=== PATIENT | female | born 1940 | race Caucasian/White ===

== ENCOUNTER 2022-12-13 08:05 | Inpatient (IN) | payer MEDICARE, OTHER, SELFPAY ==
[2022-12-13] VITALS (38 sets, daily range): BP systolic 67–138; BP diastolic 36–83; PULSE 7–93; RESP 13–21; TEMP 35.4–36.5; O2SAT 76–100; BMI 30.8
--- NOTE | 2022-12-13 08:17 | XR_ITS ---
The [address] [address] Patient Name: ALETA RODRIGUEZ MRN: [id number] date: 1940 Sex: F Assigned Patient Location: ER Current Patient Location: ER Accession/Order Number: [id number] Exam Date: 12/13/2022 08:41 Report Date: 12/13/2022 09:00 At the request of: YURI ANDRES Procedure: XR chest 1V EXAMINATION: XR chest 1V HISTORY: syncope COMPARISON: XR chest 05/12/2021 FINDINGS: LUNGS: Trace amount of stranding within medial right lung base. VASCULATURE: No increased pulmonary vasculature. PLEURA: No pneumothorax, effusion, or pleural thickening. CARDIAC: No cardiomegaly or cardiac silhouette abnormality. MEDIASTINUM: Prior sternotomy. No abnormal widening. BONES: Degenerative changes and possibly posttraumatic changes involving the left humeral head. OTHER: Negative. IMPRESSION: 1. Trace amount of right basilar atelectasis or possibly infiltrates. Electronically authenticated by: JONATHAN NICHOLAS Date: 12/13/2022 09:00
--- NOTE | 2022-12-13 08:17 | ECG_ITS ---
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
--- NOTE | 2022-12-13 08:17 | CT_ITS ---
[address] [address] Patient Name: ALETA RODRIGUEZ MRN: [id number] date: 1940 Sex: F Assigned Patient Location: ER Current Patient Location: ER Accession/Order Number: [id number] Exam Date: 12/13/2022 08:35 Report Date: 12/13/2022 08:56 At the request of: YURI ANDRES Procedure: CT stroke head/brain wo con CT stroke head/brain wo con, 12/13/2022 8:35 AM EDT INDICATION: Weakness COMPARISON: Noncontrast CT of the head 03/25/2014 TECHNIQUE: Axial CT images of the brain from skull base to vertex, including portions of the face and sinuses, were obtained without contrast. Multiplanar reformatted images were generated and reviewed as needed. FINDINGS: Global cortical and cerebellar atrophy. No intracranial mass, hydrocephalus, midline shift or acute hemorrhage. No extra-axial collection. Periventricular and deep white matter microvascular ischemic change has increased in the interval. Breen-white matter differentiation is preserved. The paranasal sinuses and mastoid air cells are clear. Orbits are within normal limits. No acute skull fracture. IMPRESSION: No acute intracranial abnormality. Electronically authenticated by: PATRICE DALLAS Date: 12/13/2022 08:56
--- NOTE | 2022-12-13 08:17 | ED.GENADUL1 ---
HPI - General Adult General Chief complaint: Neuro Symptoms/Deficit Stated complaint: CVA Time Seen by Provider: 12/13/22 08:17 History of Present Illness HPI narrative: Patient brought into the emergency department with a complaint of weakness. They called in for a code purple at registration. Lauryn brings the patient and in a wheelchair stating the patient was weak since yesterday. She denies eating and drinking. She vomited one time yesterday. Denies any hematemesis. Has not had any diarrhea. They deny any fever. He denies any trauma. Morning she was awake and not diaphoretic as if she is going to pass out. She has no previous history of seizures. 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 Patient is unable to provide history history is obtained from grandson and patient's daughter who provides us with the DNR CC paperwork. She states primary care doctor is Dr. Gonzalez. They only half the medication as atorvastatin she does not know the medication list she is calling to see if someone can provide this for us. Related Data Home Medications Medication Instructions Recorded Confirmed amlodipine 5 mg tablet 5 mg PO DAILY 12/13/22 12/13/22 aspirin 81 mg tablet,delayed 81 mg PO DAILY 12/13/22 12/13/22 release (Adult Low Dose Aspirin) donepezil 5 mg tablet 5 mg PO DAILY 12/13/22 12/13/22 duloxetine 20 mg capsule,delayed 20 mg PO DAILY 12/13/22 12/13/22 release lisinopril 40 mg tablet 40 mg PO DAILY 12/13/22 12/13/22 rosuvastatin 40 mg tablet 40 mg PO DAILY 12/13/22 12/13/22 trazodone 50 mg tablet 50 mg PO .HS 12/13/22 12/13/22 Allergies Allergy/AdvReac Type Severity Reaction Status Date / Time No Known Drug Allergies Allergy Verified 12/13/22 13:51 Review of Systems ROS Status of ROS unobtainable due to medical condition [facility] Medical History (Updated 12/15/22 @ 08:41 by Gabriella Larsen MD) Surgical History Family History Father Family history of hypertension Other Family history of myocardial infarction Social History Within the past year, how often did you have six or more drinks on one occasion: never Smoking status: Never smoker Second hand tobacco smoke exposure: No Non-prescribed substance use: denies use 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 Known occupational exposures/hazards: No Highest level of school completed/degree received: high school graduate Do you want help with school or training: No Are you now , , , , never or living with a partner: In a typical week, how many times do you talk on the telephone with family, friends, or neighbors: 3 or more times per week How often do you get together with friends or relatives: 3 or more times per week How often do you attend yazidism or zoroastrianism services: 1-3 times per year Do you belong to any clubs or organizations such as yazidism groups unions, fraternal or athletic groups, or school groups: no Total score: 1 Score interpretation: A score of less than or equal to 1 indicates the most socially isolated. Little interest or pleasure in doing things: several days Feeling down, depressed, or hopeless: not at all Feel stressed/tense/nervous/anxious/difficulty sleeping: not at all Due to disability, difficulty making decisions: No Gender Identity: female Exam Narrative Exam Narrative: Nurses notes and vital signs reviewed and patient is hypoxic. pt 85 percent on room air. 100 percent on a nonrebreather. General: Elderly, ill-appearing, groggy, syncopal, only responds to painful stimuli. no apparent distress. Skin: Warm, diaphoretic, mild pallor noted. No Rash Head: Normocephalic, atraumatic. Neck: Supple, non-tender. Eye: Pupils are equal, round 1 mm, no deviation. No scleral icterus. Ears, Nose, Mouth, and Throat: TM clear, no posterior oropharynx erythema or nasal mucosal hypertrophy, uvula is mid-line Oral mucosa is dry Cardiovascular: Sinus 92 without murmur, gallop or rub. Respiratory: No accessory muscle use or respiratory distress. Lungs are clear to auscultation, no wheezing, rales or rhonchi Chest Wall: no tenderness Back: No midline thoracic or lumbar vertebral tenderness. No CVA tenderness Musculoskeletal: normal ROM, no calf or popliteal tenderness, no lower extremity edema/swelling GI: Abdomen is soft, non-distended. Normal bowel sounds. No tenderness to palpation. No rebound, guarding, or rigidity noted. Rectal: hard melenous stool, sent for hemoccult. Neurological: A&O x3. No cranial nerve dysfunction observed. Moves all extremities. Psychiatric: Cooperative Constitutional Vital Signs - 24 hr 12/13/22 08:15 12/13/22 08:29 12/13/22 08:15 Temperature 96.9 F L Pulse Rate 86 Pulse Rate [Monitor] 93 H Respiratory Rate 20 18 Blood Pressure 138/49 H Blood Pressure [Right Arm] 138/49 H Pulse Oximetry 100 96 100 Oxygen Delivery Method Nonrebreather Room Air Oxygen Delivery Flow Rate 12/13/22 08:15 12/13/22 08:21 12/13/22 08:48 Temperature Pulse Rate 93 H 83 Pulse Rate [Monitor] Respiratory Rate 21 14 Blood Pressure 112/70 Blood Pressure [Right Arm] Pulse Oximetry 100 93 L 76 L Oxygen Delivery Method Oxygen Delivery Flow Rate 12/13/22 08:50 12/13/22 08:50 12/13/22 08:51 Temperature Pulse Rate 79 79 79 Pulse Rate [Monitor] Respiratory Rate 16 16 14 Blood Pressure 77/48 L 92/42 L Blood Pressure [Right Arm] Pulse Oximetry 93 L 93 L 98 Oxygen Delivery Method Oxygen Delivery Flow Rate 12/13/22 09:00 12/13/22 09:07 12/13/22 09:10 Temperature Pulse Rate 91 H 80 79 Pulse Rate [Monitor] Respiratory Rate 18 14 17 Blood Pressure 85/45 L 81/45 L 93/46 L Blood Pressure [Right Arm] Pulse Oximetry 97 96 98 Oxygen Delivery Method Oxygen Delivery Flow Rate 12/13/22 09:20 12/13/22 09:30 12/13/22 10:21 Temperature 96.3 F L Pulse Rate 77 75 7 L Pulse Rate [Monitor] Respiratory Rate 13 19 16 Blood Pressure 85/52 L 88/50 L 80/37 L Blood Pressure [Right Arm] Pulse Oximetry 99 100 Oxygen Delivery Method Oxygen Delivery Flow Rate 12/13/22 10:32 12/13/22 10:35 12/13/22 09:41 Temperature 96.6 F L 96.8 F L Pulse Rate 76 76 75 Pulse Rate [Monitor] Respiratory Rate 14 13 19 Blood Pressure 88/48 L 85/52 L 95/46 L Blood Pressure [Right Arm] Pulse Oximetry 100 96 97 Oxygen Delivery Method Oxygen Delivery Flow Rate 12/13/22 09:51 12/13/22 09:52 12/13/22 10:00 Temperature Pulse Rate 77 74 76 Pulse Rate [Monitor] Respiratory Rate 21 14 13 Blood Pressure 68/45 L 77/45 L 83/52 L Blood Pressure [Right Arm] Pulse Oximetry 96 97 Oxygen Delivery Method Oxygen Delivery Flow Rate 12/13/22 10:13 12/13/22 10:20 12/13/22 10:20 Temperature Pulse Rate 77 75 76 Pulse Rate [Monitor] Respiratory Rate 15 13 14 Blood Pressure 80/37 L Blood Pressure [Right Arm] Pulse Oximetry 99 Oxygen Delivery Method Oxygen Delivery Flow Rate 12/13/22 10:30 12/13/22 10:45 12/13/22 10:49 Temperature 96.2 F L Pulse Rate 74 76 Pulse Rate [Monitor] Respiratory Rate 13 15 Blood Pressure 88/48 L 106/66 Blood Pressure [Right Arm] Pulse Oximetry 97 95 98 Oxygen Delivery Method Nasal Cannula Oxygen Delivery Flow Rate 2 12/13/22 11:16 12/13/22 10:30 12/13/22 10:37 Temperature 95.8 F L Pulse Rate 78 76 75 Pulse Rate [Monitor] Respiratory Rate 17 13 16 Blood Pressure 100/65 88/48 L 85/52 L Blood Pressure [Right Arm] Pulse Oximetry 95 84 L 85 L Oxygen Delivery Method Oxygen Delivery Flow Rate 12/13/22 10:41 12/13/22 10:47 12/13/22 10:50 Temperature Pulse Rate 77 75 74 Pulse Rate [Monitor] Respiratory Rate 17 15 19 Blood Pressure 103/36 L 106/66 98/57 L Blood Pressure [Right Arm] Pulse Oximetry 89 L 96 90 L Oxygen Delivery Method Oxygen Delivery Flow Rate 12/13/22 11:00 12/13/22 11:11 12/13/22 11:12 Temperature Pulse Rate 76 79 79 Pulse Rate [Monitor] Respiratory Rate 17 20 19 Blood Pressure 109/70 67/53 L 100/65 Blood Pressure [Right Arm] Pulse Oximetry 80 L 97 80 L Oxygen Delivery Method Oxygen Delivery Flow Rate 12/13/22 11:20 Temperature Pulse Rate 78 Pulse Rate [Monitor] Respiratory Rate 17 Blood Pressure 110/55 L Blood Pressure [Right Arm] Pulse Oximetry 99 Oxygen Delivery Method Oxygen Delivery Flow Rate Course Vital Signs Vital signs: Vital Signs Temperature 96.9 F L 12/13/22 08:15 Pulse Rate 86 12/13/22 08:15 Respiratory Rate 20 12/13/22 08:15 Blood Pressure 138/49 H 12/13/22 08:15 Pulse Oximetry 100 12/13/22 08:15 Oxygen Delivery Method Nonrebreather 12/13/22 08:15 Temperature 98.2 F 12/15/22 06:00 Pulse Rate 75 12/15/22 06:00 Respiratory Rate 18 12/15/22 06:00 Blood Pressure 146/72 H 12/15/22 06:00 Pulse Oximetry 90 L 12/15/22 06:00 Oxygen Delivery Method Room Air 12/15/22 06:00 Oxygen Delivery Flow Rate 2 12/14/22 20:04 Medical Decision Making MDM Narrative Medical decision making narrative: Patient's glucose is 291. Pupils are pinpoint and equal bilaterally. The patient's oxygen saturation is 85 percent on room air. She is 100 percent on a nonrebreather. ABG was ordered. Patient's blood pressure was unable to obtain. I raised pts legs, placed her on Trendelenburg and blood pressure read was 110/50. 1 L of NS started. 2 units of packed red blood cells were ordered. Patient's was more responsive. Patient's white count is 20, xray showed possible infiltrate the patient was covered with Rocephin. Lactic acid is elevated, the patient was given 1 L of normal saline +2 units of PRBCs lactate will be rechecked. Critical Care Time: 60 minutes, critical care time is separate from any procedures that are performed. The following was considered in the determination of critical care but not limited to the level medical decision-making, intensive cardiac and/or respiratory monitor, frequent vital sign monitoring, evaluation of laboratory studies, evaluation of a radiographic studies, oxygen monitoring and constant monitoring. The patient was discussed with Dr. do for admission. Lab Data Lab results reviewed: Yes I reviewed the patient's lab results Labs: Lab Results 12/13/22 12/13/22 12/13/22 Range/Units 00:30 04:32 08:15 WBC 11.1 H 20.6 H (4.0-11.0) 10^3/uL RBC 2.77 L 2.16 L (4.20-5.40) 10^6/uL Hgb 7.6 L 5.1 L* (12.0-16.0) g/dL Hct 23.0 L* 17.1 L* (36.0-48.0) % MCV 83.0 79.2 L (81.0-99.0) fL MCH 27.4 23.6 L (26.7-34.0) pg MCHC 33.0 29.8 L (29.9-35.2) g/dL RDW 18.2 H 16.2 H (11.0-15.0) % Plt Count 177 308 (150-450) 10^3/uL MPV 10.6 10.6 (9.5-13.5) fL Neut % (Auto) 72.8 (43.0-75.0) % Lymph % (Auto) 17.6 L (20.5-60.0) % [place] % (Auto) 7.6 (1.7-12.0) % Eos % (Auto) 1.0 (0.9-7.0) % Baso % (Auto) 0.4 (0.2-2.0) % Neut # (Auto) 8.1 H (1.4-6.5) 10^3/uL Lymph # (Auto) 2.0 (1.2-3.8) 10^3/uL [place] # (Auto) 0.8 (0.3-0.8) 10^3/uL Eos # (Auto) 0.1 (0.0-0.7) 10^3/uL Baso # (Auto) 0.0 (0.0-0.1) 10^3/uL Abs Immat Gran (auto) 0.07 H (0.00-0.03) 10^3/uL Seg Neuts % (Manual) 60.0 Lymphocytes % (Manual) 30.0 (20.5-60.0) % Atypical Lymphs % (Man) 0.0 % Monocytes % (Manual) 7.0 (1.7-12.0) % Eosinophils % (Manual) 3.0 (0.9-7.0) % Basophils % (Manual) 0.0 L (0.2-2.0) % Metamyelocytes % 0.0 Myelocytes % 0.0 Promyelocytes % 0.0 Blast Cells % (Manual) 0.0 Imm/Tot Granulo (auto) 0.6 H (0.0-0.5) % Neutrophils # (Manual) 12.36 H (1.4-6.5) 10^3/uL Lymphocytes # (Manual) 6.18 H (1.20-3.80) 10^3/uL Monocytes # (Manual) 1.44 H (0.30-0.80) 10^3/uL Eosinophils # (Manual) 0.61 (0.00-0.70) 10^3/uL Basophils # (Manual) 0.00 (0.00-0.10) 10^3/uL Metamyelocytes # 0 Myelocytes # 0 Promyelocytes # 0 Blast Cells # 0 Anisocytosis 1+ PT 10.2 (9.0-11.6) sec INR 0.96 APTT <20.0 L (22.3-36.2) sec Puncture Site ABG pH (7.350-7.450) ABG pCO2 (35.0-45.0) mmHg ABG pO2 (80.0-100.0) mmHg ABG HCO3 (22.0-26.0) mmol/L ABG O2 Saturation % ABG Base Excess (-2.0-2.0) mmol/L Benjy Test (POSITIVE) O2 Liters/Min FiO2 % Sodium 136 131 L (136-145) mmol/L Potassium 4.5 5.1 (3.5-5.1) mmol/L Chloride 105 98 (98-107) mmol/L Carbon Dioxide 20.9 L 14.3 L (21.0-32.0) mmol/L Anion Gap 14.6 23.8 BUN 55.0 H 70.0 H (7.0-18.0) mg/dL Creatinine 1.51 H 1.86 H (0.55-1.02) mg/dL Est GFR ( Amer) 40 L 31 L (>=60) Est GFR (Non-Af Amer) 33 L 26 L (>=60) BUN/Creatinine Ratio 36.4 37.6 Glucose 98 253 H (74-106) mg/dL Lactate 9.9 H* (0.4-2.0) mmol/L Calcium 8.9 10.4 H (8.5-10.1) mg/dL Magnesium 2.1 (1.8-2.4) mg/dL Total Bilirubin 0.3 0.2 (0.2-1.0) mg/dL AST 23 21 (15-37) U/L ALT 14 20 (14-59) U/L Alkaline Phosphatase 28 L 35 L (46-116) U/L Troponin I High Sens 29.2 (4.0-51.3) pg/mL NT-Pro-B Natriuret Pep 577.0 (<=1800.0) pg/mL Total Protein 5.7 L 6.5 (6.4-8.2) g/dL Albumin 2.4 L 2.7 L (3.4-5.0) g/dL Globulin 3.3 3.8 g/dL Albumin/Globulin Ratio 0.7 0.7 Lipase 86.0 (73.0-393.0) U/L Urine Color (YELLOW) Urine Clarity (CLEAR) Urine pH (5.0-9.0) Ur Specific Gage (1.005-1.025) Urine Protein (NEG/TRACE) mg/dL Urine Glucose (UA) (NEGATIVE) mg/dL Urine Ketones (NEGATIVE) mg/dL Urine Occult Blood (NEGATIVE) Urine Nitrite (NEGATIVE) Urine Bilirubin (NEGATIVE) Urine Urobilinogen (0.2-1.0) EU/dL Ur Leukocyte Esterase (NEGATIVE) Tamir H. influenza (PCR) Not detected (NOT DETECTE) Stool Occult Blood Salicylates <2.8 (<=19.9) mg/dL Urine Opiates Screen (NEGATIVE) Ur Buprenorphine Scrn (NEGATIVE) Ur Oxycodone Screen (NEGATIVE) Urine Methadone Screen (NEGATIVE) Ur Propoxyphene Screen (NEGATIVE) Acetaminophen <2.0 L (10.0-30.0) ug/mL Ur Barbiturates Screen (NEGATIVE) U Tricyclic Antidepress (NEGATIVE) Ur Phencyclidine Scrn (NEGATIVE) Ur Amphetamines Screen (NEGATIVE) U Methamphetamines Scrn (NEGATIVE) U Benzodiazepines Scrn (NEGATIVE) Urine Cocaine Screen (NEGATIVE) U Cannabinoids Screen (NEGATIVE) Ethanol Quant <3 mg/dL A.calcoaceticus-baumannii cmplx PCR Not detected (NOT DETECTE) Bacteroides fragilis Not detected (NOT DETECTE) Hetal albicans (PCR) Not detected (NOT DETECTE) Hetal auris (PCR) Not detected (NOT DETECTE) C. glabrata (PCR) Not detected (NOT DETECTE) C. krusei (PCR) Not detected (NOT DETECTE) C. parapsilosis (PCR) Not detected (NOT DETECTE) C. tropicalis (PCR) Not detected (NOT DETECTE) SARS-CoV-2 (PCR) (NEGATIVE) C. neoform/gattii (PCR) Not detected (NOT DETECTE) Enterobacterales (PCR) Not detected (NOT DETECTE) E. cloacae complex PCR Not detected (NOT DETECTE) Enterococc faecalis PCR Not detected (NOT DETECTE) Enterococc faecium PCR Not detected (NOT DETECTE) E. coli (PCR) Not detected (NOT DETECTE) Klebsiella aerogenes (PCR) Not detected (NOT DETECTE) Klebsiella oxytoca PCR Not detected (NOT DETECTE) K. pneumoniae group (PCR) Not detected (NOT DETECTE) List. monocytogenes PCR Not detected (NOT DETECTE) N. meningitidis (PCR) Not detected (NOT DETECTE) Proteus spp. (copies/mL) Not detected (NOT DETECTE) Salmonella spp. (PCR) Not detected (NOT DETECTE) SARS-CoV-2 RNA (SANGITA) (NOT DETECTE) Serratia marcescens PCR Not detected (NOT DETECTE) Staphylococcus sp PCR Detected A* (NOT DETECTE) Staph aureus (PCR) Not detected (NOT DETECTE) mecA/C & MREJ Resist Gene Not detected (NOT DETECTE) mecA/C-Methicil Resis Gene Not detected (NOT DETECTE) mcr-1 Colistin Res Gene PCR Not detected (NOT DETECTE) Staph epidermidis (PCR) Detected A* (NOT DETECTE) Staph lugdunensis (TEM-PCR) Not detected (NOT DETECTE) S. maltophilia (PCR) Not detected (NOT DETECTE) Streptococcus sp PCR Not detected (NOT DETECTE) Strep agalactiae (PCR) Not detected (NOT DETECTE) Strep pneumoniae (PCR) Not detected (NOT DETECTE) S. pyogenes (PCR) Not detected (NOT DETECTE) P. aeruginosa (PCR) Not detected (NOT DETECTE) Jessica/B-Vanco Res Genes Not detected (NOT DETECTE) blaIMP Car res Gene PCR Not detected (NOT DETECTE) KPC (blaKPC) Detect PCR Not detected (NOT DETECTE) NDM (blaNDM) Detect PCR Not detected (NOT DETECTE) OXA-48 Carbapenem Resis Gene (PCR) Not detected (NOT DETECTE) blaVIM Car Res Gene PCR Not detected (NOT DETECTE) CTX-M ESBL (PCR) Not detected (NOT DETECTE) Blood Type Antibody Screen Crossmatch 12/13/22 12/13/22 12/13/22 Range/Units 08:16 08:21 08:27 WBC (4.0-11.0) 10^3/uL RBC (4.20-5.40) 10^6/uL Hgb (12.0-16.0) g/dL Hct (36.0-48.0) % MCV (81.0-99.0) fL MCH (26.7-34.0) pg MCHC (29.9-35.2) g/dL RDW (11.0-15.0) % Plt Count (150-450) 10^3/uL MPV (9.5-13.5) fL Neut % (Auto) (43.0-75.0) % Lymph % (Auto) (20.5-60.0) % [place] % (Auto) (1.7-12.0) % Eos % (Auto) (0.9-7.0) % Baso % (Auto) (0.2-2.0) % Neut # (Auto) (1.4-6.5) 10^3/uL Lymph # (Auto) (1.2-3.8) 10^3/uL [place] # (Auto) (0.3-0.8) 10^3/uL Eos # (Auto) (0.0-0.7) 10^3/uL Baso # (Auto) (0.0-0.1) 10^3/uL Abs Immat Gran (auto) (0.00-0.03) 10^3/uL Seg Neuts % (Manual) Lymphocytes % (Manual) (20.5-60.0) % Atypical Lymphs % (Man) % Monocytes % (Manual) (1.7-12.0) % Eosinophils % (Manual) (0.9-7.0) % Basophils % (Manual) (0.2-2.0) % Metamyelocytes % Myelocytes % Promyelocytes % Blast Cells % (Manual) Imm/Tot Granulo (auto) (0.0-0.5) % Neutrophils # (Manual) (1.4-6.5) 10^3/uL Lymphocytes # (Manual) (1.20-3.80) 10^3/uL Monocytes # (Manual) (0.30-0.80) 10^3/uL Eosinophils # (Manual) (0.00-0.70) 10^3/uL Basophils # (Manual) (0.00-0.10) 10^3/uL Metamyelocytes # Myelocytes # Promyelocytes # Blast Cells # Anisocytosis PT (9.0-11.6) sec INR APTT (22.3-36.2) sec Puncture Site Left radial ABG pH 7.252 L* (7.350-7.450) ABG pCO2 30.1 L (35.0-45.0) mmHg ABG pO2 303.0 H (80.0-100.0) mmHg ABG HCO3 13.3 L (22.0-26.0) mmol/L ABG O2 Saturation >100.0 % ABG Base Excess -13.9 L (-2.0-2.0) mmol/L Benjy Test Positive (POSITIVE) O2 Liters/Min N/a FiO2 100 % Sodium (136-145) mmol/L Potassium (3.5-5.1) mmol/L Chloride (98-107) mmol/L Carbon Dioxide (21.0-32.0) mmol/L Anion Gap BUN (7.0-18.0) mg/dL Creatinine (0.55-1.02) mg/dL Est GFR ( Amer) (>=60) Est GFR (Non-Af Amer) (>=60) BUN/Creatinine Ratio Glucose (74-106) mg/dL Lactate (0.4-2.0) mmol/L Calcium (8.5-10.1) mg/dL Magnesium (1.8-2.4) mg/dL Total Bilirubin (0.2-1.0) mg/dL AST (15-37) U/L ALT (14-59) U/L Alkaline Phosphatase (46-116) U/L Troponin I High Sens (4.0-51.3) pg/mL NT-Pro-B Natriuret Pep (<=1800.0) pg/mL Total Protein (6.4-8.2) g/dL Albumin (3.4-5.0) g/dL Globulin g/dL Albumin/Globulin Ratio Lipase (73.0-393.0) U/L Urine Color Lt. yellow (YELLOW) Urine Clarity Clear (CLEAR) Urine pH 6.0 (5.0-9.0) Ur Specific [place] 1.020 (1.005-1.025) Urine Protein Trace (NEG/TRACE) mg/dL Urine Glucose (UA) Negative (NEGATIVE) mg/dL Urine Ketones Negative (NEGATIVE) mg/dL Urine Occult Blood Negative (NEGATIVE) Urine Nitrite Negative (NEGATIVE) Urine Bilirubin Negative (NEGATIVE) Urine Urobilinogen 0.2 (0.2-1.0) EU/dL Ur Leukocyte Esterase Negative (NEGATIVE) Tamir H. influenza (PCR) (NOT DETECTE) Stool Occult Blood Salicylates (<=19.9) mg/dL Urine Opiates Screen Negative (NEGATIVE) Ur Buprenorphine Scrn Negative (NEGATIVE) Ur Oxycodone Screen Negative (NEGATIVE) Urine Methadone Screen Negative (NEGATIVE) Ur Propoxyphene Screen Negative (NEGATIVE) Acetaminophen (10.0-30.0) ug/mL Ur Barbiturates Screen Negative (NEGATIVE) U Tricyclic Antidepress Negative (NEGATIVE) Ur Phencyclidine Scrn Negative (NEGATIVE) Ur Amphetamines Screen Negative (NEGATIVE) U Methamphetamines Scrn Negative (NEGATIVE) U Benzodiazepines Scrn Negative (NEGATIVE) Urine Cocaine Screen Negative (NEGATIVE) U Cannabinoids Screen Negative (NEGATIVE) Ethanol Quant mg/dL A.calcoaceticus-baumannii cmplx PCR (NOT DETECTE) Bacteroides fragilis (NOT DETECTE) Hetal albicans (PCR) (NOT DETECTE) Hetal auris (PCR) (NOT DETECTE) C. glabrata (PCR) (NOT DETECTE) C. krusei (PCR) (NOT DETECTE) C. parapsilosis (PCR) (NOT DETECTE) C. tropicalis (PCR) (NOT DETECTE) SARS-CoV-2 (PCR) (NEGATIVE) C. neoform/gattii (PCR) (NOT DETECTE) Enterobacterales (PCR) (NOT DETECTE) E. cloacae complex PCR (NOT DETECTE) Enterococc faecalis PCR (NOT DETECTE) Enterococc faecium PCR (NOT DETECTE) E. coli (PCR) (NOT DETECTE) Klebsiella aerogenes (PCR) (NOT DETECTE) Klebsiella oxytoca PCR (NOT DETECTE) K. pneumoniae group (PCR) (NOT DETECTE) List. monocytogenes PCR (NOT DETECTE) N. meningitidis (PCR) (NOT DETECTE) Proteus spp. (copies/mL) (NOT DETECTE) Salmonella spp. (PCR) (NOT DETECTE) SARS-CoV-2 RNA (SANGITA) (NOT DETECTE) Serratia marcescens PCR (NOT DETECTE) Staphylococcus sp PCR (NOT DETECTE) Staph aureus (PCR) (NOT DETECTE) mecA/C & MREJ Resist Gene (NOT DETECTE) mecA/C-Methicil Resis Gene (NOT DETECTE) mcr-1 Colistin Res Gene PCR (NOT DETECTE) Staph epidermidis (PCR) (NOT DETECTE) Staph lugdunensis (TEM-PCR) (NOT DETECTE) S. maltophilia (PCR) (NOT DETECTE) Streptococcus sp PCR (NOT DETECTE) Strep agalactiae (PCR) (NOT DETECTE) Strep pneumoniae (PCR) (NOT DETECTE) S. pyogenes (PCR) (NOT DETECTE) P. aeruginosa (PCR) (NOT DETECTE) Jessica/B-Vanco Res Genes (NOT DETECTE) blaIMP Car res Gene PCR (NOT DETECTE) KPC (blaKPC) Detect PCR (NOT DETECTE) NDM (blaNDM) Detect PCR (NOT DETECTE) OXA-48 Carbapenem Resis Gene (PCR) (NOT DETECTE) blaVIM Car Res Gene PCR (NOT DETECTE) CTX-M ESBL (PCR) (NOT DETECTE) Blood Type A Positive Antibody Screen Negative Crossmatch See Detail 12/13/22 12/13/22 Range/Units 09:39 10:30 WBC (4.0-11.0) 10^3/uL RBC (4.20-5.40) 10^6/uL Hgb (12.0-16.0) g/dL Hct (36.0-48.0) % MCV (81.0-99.0) fL MCH (26.7-34.0) pg MCHC (29.9-35.2) g/dL RDW (11.0-15.0) % Plt Count (150-450) 10^3/uL MPV (9.5-13.5) fL Neut % (Auto) (43.0-75.0) % Lymph % (Auto) (20.5-60.0) % [place] % (Auto) (1.7-12.0) % Eos % (Auto) (0.9-7.0) % Baso % (Auto) (0.2-2.0) % Neut # (Auto) (1.4-6.5) 10^3/uL Lymph # (Auto) (1.2-3.8) 10^3/uL [place] # (Auto) (0.3-0.8) 10^3/uL Eos # (Auto) (0.0-0.7) 10^3/uL Baso # (Auto) (0.0-0.1) 10^3/uL Abs Immat Gran (auto) (0.00-0.03) 10^3/uL Seg Neuts % (Manual) Lymphocytes % (Manual) (20.5-60.0) % Atypical Lymphs % (Man) % Monocytes % (Manual) (1.7-12.0) % Eosinophils % (Manual) (0.9-7.0) % Basophils % (Manual) (0.2-2.0) % Metamyelocytes % Myelocytes % Promyelocytes % Blast Cells % (Manual) Imm/Tot Granulo (auto) (0.0-0.5) % Neutrophils # (Manual) (1.4-6.5) 10^3/uL Lymphocytes # (Manual) (1.20-3.80) 10^3/uL Monocytes # (Manual) (0.30-0.80) 10^3/uL Eosinophils # (Manual) (0.00-0.70) 10^3/uL Basophils # (Manual) (0.00-0.10) 10^3/uL Metamyelocytes # Myelocytes # Promyelocytes # Blast Cells # Anisocytosis PT (9.0-11.6) sec INR APTT (22.3-36.2) sec Puncture Site ABG pH (7.350-7.450) ABG pCO2 (35.0-45.0) mmHg ABG pO2 (80.0-100.0) mmHg ABG HCO3 (22.0-26.0) mmol/L ABG O2 Saturation % ABG Base Excess (-2.0-2.0) mmol/L Benjy Test (POSITIVE) O2 Liters/Min FiO2 % Sodium (136-145) mmol/L Potassium (3.5-5.1) mmol/L Chloride (98-107) mmol/L Carbon Dioxide (21.0-32.0) mmol/L Anion Gap BUN (7.0-18.0) mg/dL Creatinine (0.55-1.02) mg/dL Est GFR ( Amer) (>=60) Est GFR (Non-Af Amer) (>=60) BUN/Creatinine Ratio Glucose (74-106) mg/dL Lactate (0.4-2.0) mmol/L Calcium (8.5-10.1) mg/dL Magnesium (1.8-2.4) mg/dL Total Bilirubin (0.2-1.0) mg/dL AST (15-37) U/L ALT (14-59) U/L Alkaline Phosphatase (46-116) U/L Troponin I High Sens (4.0-51.3) pg/mL NT-Pro-B Natriuret Pep (<=1800.0) pg/mL Total Protein (6.4-8.2) g/dL Albumin (3.4-5.0) g/dL Globulin g/dL Albumin/Globulin Ratio Lipase (73.0-393.0) U/L Urine Color (YELLOW) Urine Clarity (CLEAR) Urine pH (5.0-9.0) Ur Specific Gage (1.005-1.025) Urine Protein (NEG/TRACE) mg/dL Urine Glucose (UA) (NEGATIVE) mg/dL Urine Ketones (NEGATIVE) mg/dL Urine Occult Blood (NEGATIVE) Urine Nitrite (NEGATIVE) Urine Bilirubin (NEGATIVE) Urine Urobilinogen (0.2-1.0) EU/dL Ur Leukocyte Esterase (NEGATIVE) Tamir H. influenza (PCR) (NOT DETECTE) Stool Occult Blood Positive A Salicylates (<=19.9) mg/dL Urine Opiates Screen (NEGATIVE) Ur Buprenorphine Scrn (NEGATIVE) Ur Oxycodone Screen (NEGATIVE) Urine Methadone Screen (NEGATIVE) Ur Propoxyphene Screen (NEGATIVE) Acetaminophen (10.0-30.0) ug/mL Ur Barbiturates Screen (NEGATIVE) U Tricyclic Antidepress (NEGATIVE) Ur Phencyclidine Scrn (NEGATIVE) Ur Amphetamines Screen (NEGATIVE) U Methamphetamines Scrn (NEGATIVE) U Benzodiazepines Scrn (NEGATIVE) Urine Cocaine Screen (NEGATIVE) U Cannabinoids Screen (NEGATIVE) Ethanol Quant mg/dL A.calcoaceticus-baumannii cmplx PCR (NOT DETECTE) Bacteroides fragilis (NOT DETECTE) Hetal albicans (PCR) (NOT DETECTE) Hetal auris (PCR) (NOT DETECTE) C. glabrata (PCR) (NOT DETECTE) C. krusei (PCR) (NOT DETECTE) C. parapsilosis (PCR) (NOT DETECTE) C. tropicalis (PCR) (NOT DETECTE) SARS-CoV-2 (PCR) Negative (NEGATIVE) C. neoform/gattii (PCR) (NOT DETECTE) Enterobacterales (PCR) (NOT DETECTE) E. cloacae complex PCR (NOT DETECTE) Enterococc faecalis PCR (NOT DETECTE) Enterococc faecium PCR (NOT DETECTE) E. coli (PCR) (NOT DETECTE) Klebsiella aerogenes (PCR) (NOT DETECTE) Klebsiella oxytoca PCR (NOT DETECTE) K. pneumoniae group (PCR) (NOT DETECTE) List. monocytogenes PCR (NOT DETECTE) N. meningitidis (PCR) (NOT DETECTE) Proteus spp. (copies/mL) (NOT DETECTE) Salmonella spp. (PCR) (NOT DETECTE) SARS-CoV-2 RNA (SANGITA) Not detected (NOT DETECTE) Serratia marcescens PCR (NOT DETECTE) Staphylococcus sp PCR (NOT DETECTE) Staph aureus (PCR) (NOT DETECTE) mecA/C & MREJ Resist Gene (NOT DETECTE) mecA/C-Methicil Resis Gene (NOT DETECTE) mcr-1 Colistin Res Gene PCR (NOT DETECTE) Staph epidermidis (PCR) (NOT DETECTE) Staph lugdunensis (TEM-PCR) (NOT DETECTE) S. maltophilia (PCR) (NOT DETECTE) Streptococcus sp PCR (NOT DETECTE) Strep agalactiae (PCR) (NOT DETECTE) Strep pneumoniae (PCR) (NOT DETECTE) S. pyogenes (PCR) (NOT DETECTE) P. aeruginosa (PCR) (NOT DETECTE) Jessica/B-Vanco Res Genes (NOT DETECTE) blaIMP Car res Gene PCR (NOT DETECTE) KPC (blaKPC) Detect PCR (NOT DETECTE) NDM (blaNDM) Detect PCR (NOT DETECTE) OXA-48 Carbapenem Resis Gene (PCR) (NOT DETECTE) blaVIM Car Res Gene PCR (NOT DETECTE) CTX-M ESBL (PCR) (NOT DETECTE) Blood Type Antibody Screen Crossmatch ECG Data Attestation: I personally reviewed and interpreted this ECG as follows: Discharge Plan Discharge Chief Complaint: Neuro Symptoms/Deficit Clinical Impression: Acute lactic acidosis, Anemia, Acute GI bleeding, Pneumonia, Hypovolemic shock Patient Disposition: Admitted As Inpatient Time of Disposition Decision: 11:26 Condition: Fair Discharge Date/Time: 12/13/22 12:06
[2022-12-13 08:23] LABS: ABG PCO2 30.1 mmHg (35.0-45.0)
[2022-12-13 08:27] LABS: Allen Test POSITIVE (POSITIVE); Base Excess ABG -13.9 mmol/L (-2.0-2.0); Fractionated Inspired Oxygen 100 %; HCO3 ABG 13.3 mmol/L (22.0-26.0); O2 Mode NRB; Puncture Site LEFT RADIAL
--- NOTE | 2022-12-13 08:29 | PC.NURSE ---
pt to radiology at this time
[2022-12-13 08:31] LABS: Mean Corpuscular HGB Conc 29.8 g/dL (29.9-35.2); Mean Corpuscular Hemoglobin 23.6 pg (26.7-34.0); Mean Corpuscular Volume 79.2 fL (81.0-99.0); Mean Platelet Volume 10.6 fL (9.5-13.5); Platelet Count 308 10^3/uL (150-450); Red Blood Count 2.16 10^6/uL (4.20-5.40); Red Cell Distribution Width 16.2 % (11.0-15.0); White Blood Count 20.6 10^3/uL (4.0-11.0)
[2022-12-13] MEDS: 0.9 % SODIUM CHLORIDE 1,000 ML 999 ML (08:31)
[2022-12-13 08:34] LABS: Oxygen Saturation ABG >100.0 %
[2022-12-13 08:34] LABS: Hemoglobin 5.1 g/dL (12.0-16.0)
[2022-12-13 08:35] LABS: Hematocrit 17.1 % (36.0-48.0)
[2022-12-13 08:35] LABS: pH ABG 7.252 (7.350-7.450)
[2022-12-13 08:43] LABS: Blast Absolute Manual 0; Eosinophils Absolute Manual 0.61 10^3/uL (0.00-0.70); Lymphocytes Absolute Manual 6.18 10^3/uL (1.20-3.80); Metamyelocytes Absolute Manual 0; Myelocytes Absolute Manual 0; Promyelocytes Absolute Manual 0; Segmented Neut Absolute Manual 12.36 10^3/uL (1.4-6.5)
[2022-12-13 08:44] LABS: Anisocytosis 1+; Monocytes Absolute Manual 1.44 10^3/uL (0.30-0.80)
[2022-12-13] MEDS: 0.9 % SODIUM CHLORIDE 1,000 ML 999 ML IV (08:44)
[2022-12-13 08:56] LABS: Alanine Aminotransferase 20 U/L (14-59); Albumin Globulin Ratio 0.7; Albumin Level 2.7 g/dL (3.4-5.0); Alkaline Phosphatase 35 U/L (46-116); Anion Gap 23.8; Aspartate Amino Transferase 21 U/L (15-37); BUN Creatinine Ratio 37.6; Bilirubin Total 0.2 mg/dL (0.2-1.0); Calcium 10.4 mg/dL (8.5-10.1); Carbon Dioxide 14.3 mmol/L (21.0-32.0); Chloride 98 mmol/L (98-107); Estimated GFR (African America 31 (>=60); Estimated GFR (Non-African Ame 26 (>=60); Ethanol <3 mg/dL; Globulin 3.8 g/dL; Glucose 253 mg/dL (74-106); Magnesium 2.1 mg/dL (1.8-2.4); Potassium 5.1 mmol/L (3.5-5.1); Sodium 131 mmol/L (136-145); Total Protein 6.5 g/dL (6.4-8.2); Troponin I High Sensitivity 29.2 pg/mL (4.0-51.3)
[2022-12-13 08:58] LABS: Lactate/Lactic Acid 9.9 mmol/L (0.4-2.0)
[2022-12-13 09:10] LABS: Salicylate <2.8 mg/dL (<=19.9)
[2022-12-13 09:10] LABS: Bilirubin Urine NEGATIVE (NEGATIVE); Blood Urine NEGATIVE (NEGATIVE); Clarity Urine CLEAR (CLEAR); Color Urine LT. YELLOW (YELLOW); Glucose Urine UA NEGATIVE (NEGATIVE); Ketones Urine NEGATIVE (NEGATIVE); Leukocyte Esterase Urine NEGATIVE (NEGATIVE); Nitrite Urine NEGATIVE (NEGATIVE); Protein Urine TRACE mg/dL (NEG/TRACE); Urobilinogen Urine 0.2 EU/dL (0.2-1.0)
[2022-12-13 09:11] LABS: Urine Microscopic Indicated NO
[2022-12-13 09:11] LABS: Acetaminophen <2.0 ug/mL (10.0-30.0)
[2022-12-13] MEDS: ONDANSETRON PF 4 MG/2 ML VIAL (09:11)
[2022-12-13 09:15] LABS: INR 0.96; Prothrombin Time 10.2 sec (9.0-11.6)
[2022-12-13 09:19] LABS: Amphetamine Screen Urine NEGATIVE (NEGATIVE); Barbiturates Screen Urine NEGATIVE (NEGATIVE); Benzodiazepines Screen Urine NEGATIVE (NEGATIVE); Buprenorphine Screen Urine NEGATIVE (NEGATIVE); Cannabinoid Screen Urine NEGATIVE (NEGATIVE); Cocaine Screen Urine NEGATIVE (NEGATIVE); Methadone Screen Urine NEGATIVE (NEGATIVE); Methamphetamines Screen Urine NEGATIVE (NEGATIVE); Opiate Screen Urine NEGATIVE (NEGATIVE); Oxycodone Screen Urine NEGATIVE (NEGATIVE); Phencyclidine Screen Urine NEGATIVE (NEGATIVE); Tricyclic Antidepressant Urine NEGATIVE (NEGATIVE)
[2022-12-13 09:30] LABS: Partial Thromboplastin Time <20.0 sec (22.3-36.2)
[2022-12-13 10:12] LABS: SARS-CoV-2 Ag Negative (NEGATIVE)
[2022-12-13] MEDS: 0.9 % SODIUM CHLORIDE 250 ML IV (11:06)
[2022-12-13] MEDS: PANTOPRAZOLE SODIUM 40 MG VIAL IV ×2 (11:07→21:39)
[2022-12-13 11:11] LABS: Occult Blood Positive
[2022-12-13] MEDS: VANCOMYCIN HCL 1,500 MG in 0.9 % SODIUM CHLORIDE 500 ML 250 MG IV (11:15)
[2022-12-13 12:01] LABS: Lactate/Lactic Acid 2.3 mmol/L (0.4-2.0)
--- NOTE | 2022-12-13 12:33 | PC.NURSE ---
Belongings- Patient walker
[2022-12-13 15:21] LABS: SARS-CoV-2 NAA NOT DETECTED (NOT DETECTE)
[2022-12-13] MEDS: CEFTRIAXONE 1,000 MG in 0.9 % SODIUM CHLORIDE 50 ML 100 MG IV (15:30)
[2022-12-13] MEDS: LACTATED RINGER'S SOLUTION 1,000 ML 125 ML IV (15:30)
[2022-12-13 16:54] LABS: Basophils Percent Auto 0.2 % (0.2-2.0); Eosinophils Percent Auto 0.1 % (0.9-7.0); Hematocrit 27.1 % (36.0-48.0); Immature Granulocytes Pct Auto 0.7 % (0.0-0.5); Lymphocytes Absolute Auto 1.7 10^3/uL (1.2-3.8); Lymphocytes Percent Auto 11.7 % (20.5-60.0); Mean Corpuscular HGB Conc 32.5 g/dL (29.9-35.2); Mean Corpuscular Volume 83.1 fL (81.0-99.0); Mean Platelet Volume 10.7 fL (9.5-13.5); Monocytes Absolute Auto 0.9 10^3/uL (0.3-0.8); Monocytes Percent Auto 5.9 % (1.7-12.0); Neutrophils Absolute Auto 11.8 10^3/uL (1.4-6.5); Neutrophils Percent Auto 81.4 % (43.0-75.0); Platelet Count 161 10^3/uL (150-450); Red Blood Count 3.26 10^6/uL (4.20-5.40); Red Cell Distribution Width 18.6 % (11.0-15.0); White Blood Count 14.5 10^3/uL (4.0-11.0)
[2022-12-13 16:59] LABS: Hemoglobin 8.8 g/dL (12.0-16.0)
--- NOTE | 2022-12-13 18:02 | CONS_ITS ---
CONSULTATION DATE: ??12/13/2022 REASON FOR CONSULTATION:? Anemia, melanotic stools. HISTORY OF PRESENT ILLNESS:? Patient is an 82-year-old female with history of previous valve replacement, hypertension, hypercholesterolemia, reports that she was well until earlier this morning, when she was unable to get out of bed.? She had extreme weakness and confusion.? She did have an episode of emesis, was non- bloody or black.? She was brought by her family to the emergency room where she was found to have hypotension which responded to fluid bolus.? Workup revealed a severe anemia with hemoglobin of 5, as well as guaiac positive stools, associated with an elevated BUN, mildly elevated creatinine.? She did have a large melanotic stool in the hospital as well.? She denies any history of ulcer disease or abdominal pain.? Has been on no NSAIDs or steroids.? Does take a baby aspirin daily.? No other anti-platelet or anticoagulation.? 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 She has been hemodynamically stable since her admission and did receive two units of packed red blood cells.? Her hemoglobin came up to 8.8 from 5.? She has had a normal platelet count.? PAST SURGICAL HISTORY:? Significant for appendectomy, cholecystectomy as well as hernia repair.? She does report that she had a colonoscopy approximately six years ago that she reports was normal.? She denies any previous EGDs.? Past surgical history is also significant for a knee replacement as well as tonsillectomy. ALLERGIES:? Patient has no known drug allergies. SOCIAL HISTORY:? Patient denies tobacco use or alcohol use or illicit drug use.? FAMILY HISTORY:? Positive for coronary disease in her father as well as hypertension.? No family history of GI malignancy, inflammatory bowel disease. REVIEW OF SYSTEMS:? Ten system review of systems is negative for recent weight loss or weight gain.? She did have extreme fatigue, light-headedness and weakness which is now resolved.? No headaches, seizures or tremors.? No easy bruising or bleeding.? No heat or cold intolerance.? No polydipsia, polyphagia or polyuria.? No chest pain, palpitations or syncope.? No chronic cough, shortness of breath or hemoptysis.? No abdominal pain.? She did have the one episode of nausea/vomiting.? No hematemesis.? One episode of melanotic stools, otherwise her bowel movements have been normal, non-bloody.? No dysuria, frequency, urgency or hematuria. MEDICATIONS:? Patient?s home medications include amlodipine, baby aspirin, donepezil, duloxetine, lisinopril, rosuvastatin and trazodone. PHYSICAL EXAM:? VITAL SIGNS: ?Reveal blood pressure of 134/60.? Pulse is 74 and regular.? Respiratory rate is 18.? She is afebrile.? O2 saturation is 96% on room air.? GENERAL:? In general, she is a well developed, well nourished, elderly female, currently in no acute distress. HEENT:? Normocephalic, atraumatic.? Sclerae anicteric.? Conjunctiva are not injected.? Oral mucosa is moist.? Still appears somewhat pale. NECK:? Supple.? There is no adenopathy, thyromegaly or JVD. LUNGS:? Clear bilaterally.? CARDIAC EXAM:? Regular rhythm and rate. ABDOMEN:? Soft.? There is a well healed upper midline incision.? There are no masses, hepatosplenomegaly or hernias palpated.? No CVA tenderness.? SKIN:? Warm and dry without lesions, rashes or ulcers. NEURO EXAM:? Non-focal.? Non-lateralizing.? Patient is awake, alert, oriented with appropriate affect. ASSESSMENT:? An 82-year-old female with evidence of severe anemia and melanotic stools consistently with likely upper GI bleed, unclear etiology.? PLAN:? I would continue the patient NPO.? We will proceed with EGD under anesthesia tomorrow for further evaluation.? Indications, risks, benefits, alternatives of proceeding with EGD were explained extensively to the patient, including risks of bleeding, aspiration, esophageal/gastric/duodenal perforation or anesthetic complications.? All of her questions were answered.? Informed consent was obtained.? I would continue the b.i.d. proton pump inhibitor as well.? MTDD
[2022-12-13 23:16] LABS: A. calcoaceticus-baumannii Cpx NOT DETECTED (NOT DETECTE); Bacteroides fragilis NOT DETECTED (NOT DETECTE); CTX-M NOT DETECTED (NOT DETECTE); Candida albicans NOT DETECTED (NOT DETECTE); Candida auris NOT DETECTED (NOT DETECTE); Candida glabrata NOT DETECTED (NOT DETECTE); Candida krusei NOT DETECTED (NOT DETECTE); Candida parapsilosis NOT DETECTED (NOT DETECTE); Candida tropicalis NOT DETECTED (NOT DETECTE); Cryptococcus neoformans/gattii NOT DETECTED (NOT DETECTE); Enterobacter cloacae complex NOT DETECTED (NOT DETECTE); Enterobacterales NOT DETECTED (NOT DETECTE); Enterococcus faecalis NOT DETECTED (NOT DETECTE); Enterococcus faecium NOT DETECTED (NOT DETECTE); Haemophilus influenzae NOT DETECTED (NOT DETECTE); IMP NOT DETECTED (NOT DETECTE); KPC NOT DETECTED (NOT DETECTE); Klebsiella aerogenes NOT DETECTED (NOT DETECTE); Klebsiella pneumoniae group NOT DETECTED (NOT DETECTE); Listeria monocytogenes NOT DETECTED (NOT DETECTE); NDM NOT DETECTED (NOT DETECTE); Neisseria meningitidis NOT DETECTED (NOT DETECTE); OXA-48-like NOT DETECTED (NOT DETECTE); Proteus spp. NOT DETECTED (NOT DETECTE); Pseudomonas aeruginosa NOT DETECTED (NOT DETECTE); Salmonella spp. NOT DETECTED (NOT DETECTE); Serratia marcescens NOT DETECTED (NOT DETECTE); Staphylococcus lugdunensis NOT DETECTED (NOT DETECTE); Stenotrophomonas maltophilia NOT DETECTED (NOT DETECTE); Streptococcus agalactiae NOT DETECTED (NOT DETECTE); Streptococcus pneumoniae NOT DETECTED (NOT DETECTE); Streptococcus pyogenes NOT DETECTED (NOT DETECTE); Streptococcus spp. NOT DETECTED (NOT DETECTE); VIM NOT DETECTED (NOT DETECTE); mcr-1 NOT DETECTED (NOT DETECTE); mecA/C NOT DETECTED (NOT DETECTE); mecA/C and MREJ (MRSA) NOT DETECTED (NOT DETECTE); vanA/B NOT DETECTED (NOT DETECTE)
[2022-12-14] VITALS (10 sets, daily range): BP systolic 111–156; BP diastolic 68–86; PULSE 75–84; RESP 16–18; TEMP 36.4–37.1; O2SAT 90–97
[2022-12-14 00:25] LABS: Staphylococcus epidermidis DETECTED (NOT DETECTE)
[2022-12-14 00:26] LABS: Staphylococcus spp. DETECTED (NOT DETECTE)
[2022-12-14] MEDS: LACTATED RINGER'S SOLUTION 1,000 ML 125 ML IV ×3 (02:24→13:09)
[2022-12-14 05:15] LABS: Basophils Percent Auto 0.4 % (0.2-2.0); Eosinophils Absolute Auto 0.1 10^3/uL (0.0-0.7); Hemoglobin 7.6 g/dL (12.0-16.0); Immature Granulocytes Abs Auto 0.07 10^3/uL (0.00-0.03); Immature Granulocytes Pct Auto 0.6 % (0.0-0.5); Lymphocytes Percent Auto 17.6 % (20.5-60.0); Mean Corpuscular Hemoglobin 27.4 pg (26.7-34.0); Mean Platelet Volume 10.6 fL (9.5-13.5); Monocytes Absolute Auto 0.8 10^3/uL (0.3-0.8); Monocytes Percent Auto 7.6 % (1.7-12.0); Neutrophils Absolute Auto 8.1 10^3/uL (1.4-6.5); Neutrophils Percent Auto 72.8 % (43.0-75.0); Platelet Count 177 10^3/uL (150-450); Red Blood Count 2.77 10^6/uL (4.20-5.40); Red Cell Distribution Width 18.2 % (11.0-15.0); White Blood Count 11.1 10^3/uL (4.0-11.0)
[2022-12-14 05:50] LABS: Alanine Aminotransferase 14 U/L (14-59); Albumin Globulin Ratio 0.7; Albumin Level 2.4 g/dL (3.4-5.0); Alkaline Phosphatase 28 U/L (46-116); Anion Gap 14.6; Aspartate Amino Transferase 23 U/L (15-37); BUN Creatinine Ratio 36.4; Bilirubin Total 0.3 mg/dL (0.2-1.0); Calcium 8.9 mg/dL (8.5-10.1); Carbon Dioxide 20.9 mmol/L (21.0-32.0); Chloride 105 mmol/L (98-107); Estimated GFR (African America 40 (>=60); Estimated GFR (Non-African Ame 33 (>=60); Globulin 3.3 g/dL; Glucose 98 mg/dL (74-106); Potassium 4.5 mmol/L (3.5-5.1); Sodium 136 mmol/L (136-145); Total Protein 5.7 g/dL (6.4-8.2)
[2022-12-14] MEDS: PANTOPRAZOLE SODIUM 40 MG VIAL IV ×2 (08:07→22:05)
--- NOTE | 2022-12-14 08:10 | P.GSCN_ITS ---
History of Present Illness Consult details Consult date: 12/13/22 Narrative: patient seen/examined/chart reviewed; consult dictated; plan EGD under anesthesia 12/14/22. 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 Known occupational exposures/hazards: No Highest level of school completed/degree received: high school graduate Do you want help with school or training: No Are you now , , , , never or living with a partner: In a typical week, how many times do you talk on the telephone with family, friends, or neighbors: 3 or more times per week How often do you get together with friends or relatives: 3 or more times per week How often do you attend advent or sikhism services: 1-3 times per year Do you belong to any clubs or organizations such as advent groups unions, fra [employer] or athletic groups, or school groups: no Total score: 1 Score interpretation: A score of less than or equal to 1 indicates the most socially isolated. Little interest or pleasure in doing things: several days Feeling down, depressed, or hopeless: not at all Feel stressed/tense/nervous/anxious/difficulty sleeping: not at all Due to disability, difficulty making decisions: No Gender Identity: female Meds Home Medications and Allergies Home Medications Medication Instructions Recorded Confirmed Type amlodipine 5 mg tablet 5 mg PO DAILY 12/13/22 12/13/22 History aspirin 81 mg tablet,delayed 81 mg PO DAILY 12/13/22 12/13/22 History release (Adult Low Dose Aspirin) donepezil 5 mg tablet 5 mg PO DAILY 12/13/22 12/13/22 History duloxetine 20 mg capsule,delayed 20 mg PO DAILY 12/13/22 12/13/22 History release lisinopril 40 mg tablet 40 mg PO DAILY 12/13/22 12/13/22 History rosuvastatin 40 mg tablet 40 mg PO DAILY 12/13/22 12/13/22 History trazodone 50 mg tablet 50 mg PO .HS 12/13/22 12/13/22 History Allergies Allergy/AdvReac Type Severity Reaction Status Date / Time No Known Drug Allergies Allergy Verified 12/13/22 13:51 Exam Constitutional Vital Signs - 24 hr 12/13/22 08:15 12/13/22 08:29 12/13/22 08:15 Temperature 96.9 F L Pulse Rate 86 Pulse Rate [Monitor] 93 H Respiratory Rate 20 18 Blood Pressure 138/49 H Blood Pressure [Right Arm] 138/49 H Pulse Oximetry 100 96 100 Oxygen Delivery Method Nonrebreather Room Air Oxygen Delivery Flow Rate 12/13/22 08:15 12/13/22 08:21 12/13/22 08:48 Temperature Pulse Rate 93 H 83 Pulse Rate [Monitor] Respiratory Rate 21 14 Blood Pressure 112/70 Blood Pressure [Right Arm] Pulse Oximetry 100 93 L 76 L Oxygen Delivery Method Oxygen Delivery Flow Rate 12/13/22 08:50 12/13/22 08:50 12/13/22 08:51 Temperature Pulse Rate 79 79 79 Pulse Rate [Monitor] Respiratory Rate 16 16 14 Blood Pressure 77/48 L 92/42 L Blood Pressure [Right Arm] Pulse Oximetry 93 L 93 L 98 Oxygen Delivery Method Oxygen Delivery Flow Rate 12/13/22 09:00 12/13/22 09:07 12/13/22 09:10 Temperature Pulse Rate 91 H 80 79 Pulse Rate [Monitor] Respiratory Rate 18 14 17 Blood Pressure 85/45 L 81/45 L 93/46 L Blood Pressure [Right Arm] Pulse Oximetry 97 96 98 Oxygen Delivery Method Oxygen Delivery Flow Rate 12/13/22 09:20 12/13/22 09:30 12/13/22 10:21 Temperature 96.3 F L Pulse Rate 77 75 7 L Pulse Rate [Monitor] Respiratory Rate 13 19 16 Blood Pressure 85/52 L 88/50 L 80/37 L Blood Pressure [Right Arm] Pulse Oximetry 99 100 Oxygen Delivery Method Oxygen Delivery Flow Rate 12/13/22 10:32 12/13/22 10:35 12/13/22 09:41 Temperature 96.6 F L 96.8 F L Pulse Rate 76 76 75 Pulse Rate [Monitor] Respiratory Rate 14 13 19 Blood Pressure 88/48 L 85/52 L 95/46 L Blood Pressure [Right Arm] Pulse Oximetry 100 96 97 Oxygen Delivery Method Oxygen Delivery Flow Rate 12/13/22 09:51 12/13/22 09:52 12/13/22 10:00 Temperature Pulse Rate 77 74 76 Pulse Rate [Monitor] Respiratory Rate 21 14 13 Blood Pressure 68/45 L 77/45 L 83/52 L Blood Pressure [Right Arm] Pulse Oximetry 96 97 Oxygen Delivery Method Oxygen Delivery Flow Rate 12/13/22 10:13 12/13/22 10:20 12/13/22 10:20 Temperature Pulse Rate 77 75 76 Pulse Rate [Monitor] Respiratory Rate 15 13 14 Blood Pressure 80/37 L Blood Pressure [Right Arm] Pulse Oximetry 99 Oxygen Delivery Method Oxygen Delivery Flow Rate 12/13/22 10:30 12/13/22 10:45 12/13/22 10:49 Temperature 96.2 F L Pulse Rate 74 76 Pulse Rate [Monitor] Respiratory Rate 13 15 Blood Pressure 88/48 L 106/66 Blood Pressure [Right Arm] Pulse Oximetry 97 95 98 Oxygen Delivery Method Nasal Cannula Oxygen Delivery Flow Rate 2 12/13/22 11:16 12/13/22 10:30 12/13/22 10:37 Temperature 95.8 F L Pulse Rate 78 76 75 Pulse Rate [Monitor] Respiratory Rate 17 13 16 Blood Pressure 100/65 88/48 L 85/52 L Blood Pressure [Right Arm] Pulse Oximetry 95 84 L 85 L Oxygen Delivery Method Oxygen Delivery Flow Rate 12/13/22 10:41 12/13/22 10:47 12/13/22 10:50 Temperature Pulse Rate 77 75 74 Pulse Rate [Monitor] Respiratory Rate 17 15 19 Blood Pressure 103/36 L 106/66 98/57 L Blood Pressure [Right Arm] Pulse Oximetry 89 L 96 90 L Oxygen Delivery Method Oxygen Delivery Flow Rate 12/13/22 11:00 12/13/22 11:11 12/13/22 11:12 Temperature Pulse Rate 76 79 79 Pulse Rate [Monitor] Respiratory Rate 17 20 19 Blood Pressure 109/70 67/53 L 100/65 Blood Pressure [Right Arm] Pulse Oximetry 80 L 97 80 L Oxygen Delivery Method Oxygen Delivery Flow Rate 12/13/22 11:20 12/13/22 11:20 12/13/22 11:31 Temperature Pulse Rate 78 76 78 Pulse Rate [Monitor] Respiratory Rate 17 17 16 Blood Pressure 110/55 L 110/55 L 113/64 Blood Pressure [Right Arm] Pulse Oximetry 99 98 96 Oxygen Delivery Method Oxygen Delivery Flow Rate 12/13/22 11:14 12/13/22 14:01 12/13/22 14:10 Temperature 96.6 F L 96.6 F L Pulse Rate 74 74 Pulse Rate [Monitor] Respiratory Rate 16 16 Blood Pressure 137/83 H Blood Pressure [Right Arm] 137/83 H Pulse Oximetry 94 L Oxygen Delivery Method Room Air Room Air Oxygen Delivery Flow Rate 12/13/22 14:00 12/13/22 15:36 12/14/22 06:06 Temperature 97.7 F 97.7 F 98.4 F Pulse Rate 74 74 78 Pulse Rate [Monitor] Respiratory Rate 18 18 18 Blood Pressure 124/82 H 134/60 H Blood Pressure [Right Arm] 111/68 Pulse Oximetry 95 Oxygen Delivery Method Nasal Cannula Oxygen Delivery Flow Rate 2 Results Labs Labs: Abnormal lab results 12/13/22 12/13/22 12/13/22 Range/Units 00:30 04:32 08:15 WBC 11.1 H 20.6 H (4.0-11.0) 10^3/uL RBC 2.77 L 2.16 L (4.20-5.40) 10^6/uL Hgb 7.6 L 5.1 L* (12.0-16.0) g/dL Hct 23.0 L* 17.1 L* (36.0-48.0) % MCV 79.2 L (81.0-99.0) fL MCH 23.6 L (26.7-34.0) pg MCHC 29.8 L (29.9-35.2) g/dL RDW 18.2 H 16.2 H (11.0-15.0) % Neut % (Auto) (43.0-75.0) % Lymph % (Auto) 17.6 L (20.5-60.0) % Eos % (Auto) (0.9-7.0) % Neut # (Auto) 8.1 H (1.4-6.5) 10^3/uL Kern # (Auto) (0.3-0.8) 10^3/uL Abs Immat Gran (auto) 0.07 H (0.00-0.03) 10^3/uL Basophils % (Manual) 0.0 L (0.2-2.0) % Imm/Tot Granulo (auto) 0.6 H (0.0-0.5) % Neutrophils # (Manual) 12.36 H (1.4-6.5) 10^3/uL Lymphocytes # (Manual) 6.18 H (1.20-3.80) 10^3/uL Monocytes # (Manual) 1.44 H (0.30-0.80) 10^3/uL APTT <20.0 L (22.3-36.2) sec ABG pH (7.350-7.450) ABG pCO2 (35.0-45.0) mmHg ABG pO2 (80.0-100.0) mmHg ABG HCO3 (22.0-26.0) mmol/L ABG Base Excess (-2.0-2.0) mmol/L Sodium 131 L (136-145) mmol/L Carbon Dioxide 20.9 L 14.3 L (21.0-32.0) mmol/L BUN 55.0 H 70.0 H (7.0-18.0) mg/dL Creatinine 1.51 H 1.86 H (0.55-1.02) mg/dL Est GFR ( Amer) 40 L 31 L (>=60) Est GFR (Non-Af Amer) 33 L 26 L (>=60) Glucose 253 H (74-106) mg/dL Lactate 9.9 H* (0.4-2.0) mmol/L Calcium 10.4 H (8.5-10.1) mg/dL Alkaline Phosphatase 28 L 35 L (46-116) U/L Total Protein 5.7 L (6.4-8.2) g/dL Albumin 2.4 L 2.7 L (3.4-5.0) g/dL Stool Occult Blood Acetaminophen <2.0 L (10.0-30.0) ug/mL Staphylococcus sp PCR Detected A* (NOT DETECTE) Staph epidermidis (PCR) Detected A* (NOT DETECTE) Crossmatch 12/13/22 12/13/22 12/13/22 Range/Units 08:16 08:21 10:30 WBC (4.0-11.0) 10^3/uL RBC (4.20-5.40) 10^6/uL Hgb (12.0-16.0) g/dL Hct (36.0-48.0) % MCV (81.0-99.0) fL MCH (26.7-34.0) pg MCHC (29.9-35.2) g/dL RDW (11.0-15.0) % Neut % (Auto) (43.0-75.0) % Lymph % (Auto) (20.5-60.0) % Eos % (Auto) (0.9-7.0) % Neut # (Auto) (1.4-6.5) 10^3/uL Kern # (Auto) (0.3-0.8) 10^3/uL Abs Immat Gran (auto) (0.00-0.03) 10^3/uL Basophils % (Manual) (0.2-2.0) % Imm/Tot Granulo (auto) (0.0-0.5) % Neutrophils # (Manual) (1.4-6.5) 10^3/uL Lymphocytes # (Manual) (1.20-3.80) 10^3/uL Monocytes # (Manual) (0.30-0.80) 10^3/uL APTT (22.3-36.2) sec ABG pH 7.252 L* (7.350-7.450) ABG pCO2 30.1 L (35.0-45.0) mmHg ABG pO2 303.0 H (80.0-100.0) mmHg ABG HCO3 13.3 L (22.0-26.0) mmol/L ABG Base Excess -13.9 L (-2.0-2.0) mmol/L Sodium (136-145) mmol/L Carbon Dioxide (21.0-32.0) mmol/L BUN (7.0-18.0) mg/dL Creatinine (0.55-1.02) mg/dL Est GFR ( Amer) (>=60) Est GFR (Non-Af Amer) (>=60) Glucose (74-106) mg/dL Lactate (0.4-2.0) mmol/L Calcium (8.5-10.1) mg/dL Alkaline Phosphatase (46-116) U/L Total Protein (6.4-8.2) g/dL Albumin (3.4-5.0) g/dL Stool Occult Blood Positive A Acetaminophen (10.0-30.0) ug/mL Staphylococcus sp PCR (NOT DETECTE) Staph epidermidis (PCR) (NOT DETECTE) Crossmatch See Detail 12/13/22 12/13/22 12/13/22 Range/Units 11:33 16:46 21:50 WBC 14.5 H (4.0-11.0) 10^3/uL RBC 3.26 L (4.20-5.40) 10^6/uL Hgb 8.8 L 8.0 L (12.0-16.0) g/dL Hct 27.1 L 24.0 L (36.0-48.0) % MCV (81.0-99.0) fL MCH (26.7-34.0) pg MCHC (29.9-35.2) g/dL RDW 18.6 H (11.0-15.0) % Neut % (Auto) 81.4 H (43.0-75.0) % Lymph % (Auto) 11.7 L (20.5-60.0) % Eos % (Auto) 0.1 L (0.9-7.0) % Neut # (Auto) 11.8 H (1.4-6.5) 10^3/uL Kern # (Auto) 0.9 H (0.3-0.8) 10^3/uL Abs Immat Gran (auto) 0.10 H (0.00-0.03) 10^3/uL Basophils % (Manual) (0.2-2.0) % Imm/Tot Granulo (auto) 0.7 H (0.0-0.5) % Neutrophils # (Manual) (1.4-6.5) 10^3/uL Lymphocytes # (Manual) (1.20-3.80) 10^3/uL Monocytes # (Manual) (0.30-0.80) 10^3/uL APTT (22.3-36.2) sec ABG pH (7.350-7.450) ABG pCO2 (35.0-45.0) mmHg ABG pO2 (80.0-100.0) mmHg ABG HCO3 (22.0-26.0) mmol/L ABG Base Excess (-2.0-2.0) mmol/L Sodium (136-145) mmol/L Carbon Dioxide (21.0-32.0) mmol/L BUN (7.0-18.0) mg/dL Creatinine (0.55-1.02) mg/dL Est GFR ( Amer) (>=60) Est GFR (Non-Af Amer) (>=60) Glucose (74-106) mg/dL Lactate 2.3 H* (0.4-2.0) mmol/L Calcium (8.5-10.1) mg/dL Alkaline Phosphatase (46-116) U/L Total Protein (6.4-8.2) g/dL Albumin (3.4-5.0) g/dL Stool Occult Blood Acetaminophen (10.0-30.0) ug/mL Staphylococcus sp PCR (NOT DETECTE) Staph epidermidis (PCR) (NOT DETECTE) Crossmatch Diabetes panel 12/13/22 12/13/22 Range/Units 04:32 08:15 Sodium 136 131 L (136-145) mmol/L Potassium 4.5 5.1 (3.5-5.1) mmol/L Chloride 105 98 (98-107) mmol/L Carbon Dioxide 20.9 L 14.3 L (21.0-32.0) mmol/L BUN 55.0 H 70.0 H (7.0-18.0) mg/dL Creatinine 1.51 H 1.86 H (0.55-1.02) mg/dL Glucose 98 253 H (74-106) mg/dL Calcium 8.9 10.4 H (8.5-10.1) mg/dL AST 23 21 (15-37) U/L ALT 14 20 (14-59) U/L Alkaline Phosphatase 28 L 35 L (46-116) U/L Total Protein 5.7 L 6.5 (6.4-8.2) g/dL Albumin 2.4 L 2.7 L (3.4-5.0) g/dL Calcium panel 12/13/22 12/13/22 Range/Units 04:32 08:15 Calcium 8.9 10.4 H (8.5-10.1) mg/dL Albumin 2.4 L 2.7 L (3.4-5.0) g/dL Pituitary panel 12/13/22 12/13/22 Range/Units 04:32 08:15 Sodium 136 131 L (136-145) mmol/L Potassium 4.5 5.1 (3.5-5.1) mmol/L Chloride 105 98 (98-107) mmol/L Carbon Dioxide 20.9 L 14.3 L (21.0-32.0) mmol/L BUN 55.0 H 70.0 H (7.0-18.0) mg/dL Creatinine 1.51 H 1.86 H (0.55-1.02) mg/dL Glucose 98 253 H (74-106) mg/dL Calcium 8.9 10.4 H (8.5-10.1) mg/dL Adrenal panel 12/13/22 12/13/22 Range/Units 04:32 08:15 Sodium 136 131 L (136-145) mmol/L Potassium 4.5 5.1 (3.5-5.1) mmol/L Chloride 105 98 (98-107) mmol/L Carbon Dioxide 20.9 L 14.3 L (21.0-32.0) mmol/L BUN 55.0 H 70.0 H (7.0-18.0) mg/dL Creatinine 1.51 H 1.86 H (0.55-1.02) mg/dL Glucose 98 253 H (74-106) mg/dL Calcium 8.9 10.4 H (8.5-10.1) mg/dL Total Bilirubin 0.3 0.2 (0.2-1.0) mg/dL AST 23 21 (15-37) U/L ALT 14 20 (14-59) U/L Alkaline Phosphatase 28 L 35 L (46-116) U/L Total Protein 5.7 L 6.5 (6.4-8.2) g/dL Albumin 2.4 L 2.7 L (3.4-5.0) g/dL All other labs normal.
[2022-12-14 12:06] LABS: Basophils Absolute Auto 0.1 10^3/uL (0.0-0.1); Basophils Percent Auto 0.4 % (0.2-2.0); Eosinophils Absolute Auto 0.1 10^3/uL (0.0-0.7); Eosinophils Percent Auto 1.1 % (0.9-7.0); Hematocrit 24.7 % (36.0-48.0); Hemoglobin 7.9 g/dL (12.0-16.0); Immature Granulocytes Abs Auto 0.07 10^3/uL (0.00-0.03); Immature Granulocytes Pct Auto 0.6 % (0.0-0.5); Lymphocytes Percent Auto 16.9 % (20.5-60.0); Mean Corpuscular Hemoglobin 27.1 pg (26.7-34.0); Mean Corpuscular Volume 84.6 fL (81.0-99.0); Mean Platelet Volume 10.2 fL (9.5-13.5); Monocytes Absolute Auto 0.7 10^3/uL (0.3-0.8); Monocytes Percent Auto 6.3 % (1.7-12.0); Neutrophils Absolute Auto 8.8 10^3/uL (1.4-6.5); Neutrophils Percent Auto 74.7 % (43.0-75.0); Platelet Count 194 10^3/uL (150-450); Red Blood Count 2.92 10^6/uL (4.20-5.40); Red Cell Distribution Width 18.5 % (11.0-15.0); White Blood Count 11.8 10^3/uL (4.0-11.0)
--- NOTE | 2022-12-14 12:30 | PC.NURSE ---
PT RECOVERED IN ENDO SUITE FOLLOWING PROCEDURE
[2022-12-14 12:31] LABS: Alanine Aminotransferase 19 U/L (14-59); Albumin Globulin Ratio 0.8; Albumin Level 2.7 g/dL (3.4-5.0); Alkaline Phosphatase 30 U/L (46-116); Anion Gap 12.8; Aspartate Amino Transferase 23 U/L (15-37); BUN Creatinine Ratio 31.1; Bilirubin Total 0.3 mg/dL (0.2-1.0); Carbon Dioxide 24.1 mmol/L (21.0-32.0); Chloride 104 mmol/L (98-107); Estimated GFR (African America 41 (>=60); Estimated GFR (Non-African Ame 34 (>=60); Globulin 3.5 g/dL; Glucose 104 mg/dL (74-106); Potassium 4.9 mmol/L (3.5-5.1); Sodium 136 mmol/L (136-145); Total Protein 6.2 g/dL (6.4-8.2)
--- NOTE | 2022-12-14 12:35 | PCN_ITS ---
PROCEDURE DATE: ??12/14/2022 PREOPERATIVE DIAGNOSIS:? Anemia, melanotic stools. POSTOPERATIVE DIAGNOSIS:? Hiatal hernia. PROCEDURE:? EGD. SURGEON:? Rizwan Henry M.D. ANESTHESIA:? Monitored anesthesia care. ESTIMATED BLOOD LOSS:? Zero INDICATIONS AND CONSENT:? Patient is an 82-year-old female, found to have extreme weakness, was found to have a profound anemia with hemoglobin of 5.? She also had melanotic stool.? Indications, risks, benefits, alternatives of proceeding with EGD under anesthesia were explained extensively to the patient, including the risks of bleeding, aspiration, esophageal/gastric/duodenal perforation or anesthetic complications.? All of her questions were answered.? Informed consent was obtained. PROCEDURE:? Patient was brought to the operating room, placed in the left lateral decubitus position.? Monitored anesthesia care was provided.? Bite block was placed in the patient?s mouth.? Scope was inserted into the oropharynx.? Under direct visualization, it was advanced into the esophagus, past the cricopharyngeus, down to the stomach.? The stomach was insufflated with air.? The pylorus was traversed down to the descending portion of the duodenum.? There was no old or new blood.? There were no ulcerations or abnormal blood vessels.? The scope was pulled back into the stomach and retroflexed.? There was noted to be a large hiatal hernia.? No erosions.? No old or new blood within the stomach.? No ulcerations or masses.? The GE junction was noted at approximately 37 cm.? There was no distal esophagitis or Munguia?s changes.? The remainder of the esophagus was unremarkable.? The scope was then withdrawn.? Patient tolerated procedure well, was sent to recovery room in good condition. CC:? Patient?s family physician JASIEL
--- NOTE | 2022-12-14 12:36 | PC.NURSE ---
BP 84/51,112,90%4L
--- NOTE | 2022-12-14 12:39 | NUTR.NU ---
PT RESTING QUIETLY NO C/O PAIN, 112/51,77,100% 4L
--- NOTE | 2022-12-14 12:40 | CM.NOTE ---
Rounds made with Dr. Washington, awaiting surgical consult. Repeating labs this AM and pt will have PT evalutation.
[2022-12-14] MEDS: CEFTRIAXONE 1,000 MG in 0.9 % SODIUM CHLORIDE 50 ML 100 MG IV (13:10)
[2022-12-14] MEDS: IRON SUCROSE COMPLEX 200 MG in 0.9 % SODIUM CHLORIDE 100 ML 220 MG IV (14:02)
--- NOTE | 2022-12-14 14:40 | SWNOTE1 ---
IDALIA met with pt and family in room. Pt lives at home with partner and her grandson. Pt uses a walker at home and stays on the first floor. Pt has good support, her daughter comes in to bathe her. Pt does not have any concerns about discharge. SW talked with her about HH, she does want it and has had it in the past. Pt would like to use [facility]– [place]. IDALIA sent referral.
[2022-12-14] MEDS: PEG3350/SOD SULF,BICARB,CL/KCL 4,000 ML SOLN.RECON 4000 ML PO (16:56)
[2022-12-14] MEDS: 0.9 % SODIUM CHLORIDE 250 ML 50 ML IV (17:46)
--- NOTE | 2022-12-14 20:29 | PC.NURSE ---
Pt has large liquid dark brown stool
--- NOTE | 2022-12-14 21:21 | PM.HP ---
H&P: HPI History of Present Illness Chief complaint: Weakness, orthostatic syncope Narrative: 82 y o female was in her usual state of health and was sitting on her recliner when she felt acutely sick, extremely weak along with confusion while trying to get up from her recliner. She was shaking, could not bear her weight and was diaphoretic, cold and clammy. Her grand kid fire department marine engineer her up and brought him to ED for further evaluation and had a brief episode of syncope while she was getting into a wheelchair in ED. She did not fall and regained censoriousness right away. On w/u patient was noted to be hypotensive with severe anemia with Hb of 5 along with leukocytosis, lactic acidosis. She was given empical antibiotics for Sepsis with unknown source and received aggressive IV hydration for hypovolemic shock and was admitted for acute GI bleeding, hypovolemic shock This morning - patient reports feeling better. She is more or less close to her baseline. Denies any active symptoms other than feeling weak and tired. Had one bowel movement that was dark black comored overnight. 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 Known occupational exposures/hazards: No Highest level of school completed/degree received: high school graduate Do you want help with school or training: No Are you now , , , , never or living with a partner: In a typical week, how many times do you talk on the telephone with family, friends, or neighbors: 3 or more times per week How often do you get together with friends or relatives: 3 or more times per week How often do you attend roman catholic or advent services: 1-3 times per year Do you belong to any clubs or organizations such as roman catholic groups unions, fraternal or athletic groups, or school groups: no Total score: 1 Score interpretation: A score of less than or equal to 1 indicates the most socially isolated. Little interest or pleasure in doing things: several days Feeling down, depressed, or hopeless: not at all Feel stressed/tense/nervous/anxious/difficulty sleeping: not at all Due to disability, difficulty making decisions: No Gender Identity: female Meds Home Medications and Allergies Home Medications Medication Instructions Recorded Confirmed Type amlodipine 5 mg tablet 5 mg PO DAILY 12/13/22 12/13/22 History aspirin 81 mg tablet,delayed 81 mg PO DAILY 12/13/22 12/13/22 History release (Adult Low Dose Aspirin) donepezil 5 mg tablet 5 mg PO DAILY 12/13/22 12/13/22 History duloxetine 20 mg capsule,delayed 20 mg PO DAILY 12/13/22 12/13/22 History release lisinopril 40 mg tablet 40 mg PO DAILY 12/13/22 12/13/22 History rosuvastatin 40 mg tablet 40 mg PO DAILY 12/13/22 12/13/22 History trazodone 50 mg tablet 50 mg PO .HS 12/13/22 12/13/22 History Allergies Allergy/AdvReac Type Severity Reaction Status Date / Time No Known Drug Allergies Allergy Verified 12/13/22 13:51 Exam Constitutional Vital Signs - 24 hr 12/14/22 06:06 12/14/22 13:00 12/14/22 13:30 Temperature 98.4 F 97.9 F Pulse Rate 78 75 75 Respiratory Rate 18 18 16 Blood Pressure Blood Pressure [Left Arm] 143/80 H 138/69 H Blood Pressure [Right Arm] 111/68 Pulse Oximetry 95 97 91 L Oxygen Delivery Method Nasal Cannula Nasal Cannula Room Air Oxygen Delivery Flow Rate 2 2 12/14/22 14:00 12/14/22 17:46 12/14/22 18:04 Temperature 98.7 F 97.9 F 97.5 F L Pulse Rate 78 82 84 Respiratory Rate 16 16 16 Blood Pressure 146/79 H 144/83 H Blood Pressure [Left Arm] 135/77 H Blood Pressure [Right Arm] Pulse Oximetry 90 L 93 L Oxygen Delivery Method Room Air Room Air Oxygen Delivery Flow Rate 12/14/22 19:04 12/14/22 20:04 12/14/22 21:04 Temperature 97.5 F L 97.9 F 97.9 F Pulse Rate 76 75 75 Respiratory Rate 16 16 Blood Pressure 147/73 H 136/71 H 156/86 H Blood Pressure [Left Arm] Blood Pressure [Right Arm] Pulse Oximetry 93 L 93 L 93 L Oxygen Delivery Method Room Air Room Air Room Air Oxygen Delivery Flow Rate 2 Documenting provider has reviewed patient's vital signs: yes Common normals: no apparent distress Nutritional appearance: obese HENDC Common normals: normocephalic and head/scalp atraumatic Eye Common normals: conjunctivae normal and no scleral icterus Respiratory Common normals: normal respiratory effort, no use of accessory muscles and clear to auscultation bilaterally Cardio Common normals: regular rate, regular rhythm, S1 normal heart sound and S2 normal heart sound GI Common normals: Normal to inspection, nondistended, normoactive bowel sounds present, non-tender and no hepatosplenomegaly Extremity Common normals: normal to inspection and full ROM Neuro Common normals: oriented x3, moves all extremities, no focal motor deficits and no sensory deficits noted Psych Common normals: mental status grossly normal, thought process normal, cooperative, denies homicidal ideation and denies suicidal ideation Results Labs Labs: Short CBC 12/13/22 12/13/22 12/14/22 Range/Units 04:32 21:50 11:57 WBC 11.1 H 11.8 H (4.0-11.0) 10^3/uL Hgb 7.6 L 8.0 L 7.9 L (12.0-16.0) g/dL Hct 23.0 L* 24.0 L 24.7 L (36.0-48.0) % Plt Count 177 194 (150-450) 10^3/uL BMP 12/13/22 12/14/22 04:32 11:57 Sodium 136 136 Potassium 4.5 4.9 Chloride 105 104 Carbon Dioxide 20.9 L 24.1 BUN 55.0 H 46.0 H Creatinine 1.51 H 1.48 H Glucose 98 104 Calcium 8.9 9.0 Liver Function 12/13/22 12/14/22 Range/Units 04:32 11:57 Total Bilirubin 0.3 0.3 (0.2-1.0) mg/dL AST 23 23 (15-37) U/L ALT 14 19 (14-59) U/L Alkaline Phosphatase 28 L 30 L (46-116) U/L Albumin 2.4 L 2.7 L (3.4-5.0) g/dL ABG ABG results: 12/13/22 08:16 ABG pH 7.252 L* ABG pCO2 30.1 L ABG pO2 303.0 H ABG HCO3 13.3 L ABG O2 Saturation >100.0 ABG Base Excess -13.9 L Assessment and Plan Assessment and Plan (1) Hypovolemic shock: Assessment and Plan: BP as low as 60/40 on arrival. Required aggressive IV hydration. Stable now. Infact it is above goal now. 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 On ASA for it. ASA on hold currently (3) Acute GI bleeding: Assessment and Plan: Initially presumed to be of upper GI source. But no sig finding on EGD. Final report was not available to me at the time of documentation. Protonic 40 q12. Colonoscopy tomorrow. No prior hx of GIB. Colonoscopy over 10 years for colon cancer screening. Never had EGD in the past. Denies NSAIDS use other than ASA low dose after AVR. DS/p 3 units PRBC until now. Monitor H&H (4) Symptomatic anemia: Assessment and Plan: Resolved after transfusion and fluid resuscitation. (5) Leukocytosis: Assessment and Plan: Likely reactive. Possible consolidation on CXR which I am not convinced that she has PNA in the absence of any resp symptoms concerning for PNA. On rocephin for now. Cw it for now. WIll likely d/c it tomorrow (6) HLD (hyperlipidemia): Assessment and Plan: c/w statin (7) Dementia: Assessment and Plan: mild dementia. on donezepil. Appropriate, normal thought process (8) HTN (hypertension): Assessment and Plan: anti hypertensives on hold due to hypovolemic shock on presentation. Will resume norvasc tomorrow (9) Acute lactic acidosis: Assessment and Plan: due to hypoperfusion. resolved with IVF. (10) Staphylococcus epidermidis bacteremia: Assessment and Plan: Likely contaminant. F/u C&S
[2022-12-14 21:28] LABS: Basophils Absolute Auto 0.1 10^3/uL (0.0-0.1); Basophils Percent Auto 0.4 % (0.2-2.0); Eosinophils Absolute Auto 0.2 10^3/uL (0.0-0.7); Eosinophils Percent Auto 1.9 % (0.9-7.0); Hemoglobin 9.5 g/dL (12.0-16.0); Immature Granulocytes Abs Auto 0.06 10^3/uL (0.00-0.03); Immature Granulocytes Pct Auto 0.5 % (0.0-0.5); Lymphocytes Absolute Auto 1.8 10^3/uL (1.2-3.8); Mean Corpuscular HGB Conc 32.8 g/dL (29.9-35.2); Mean Corpuscular Hemoglobin 28.4 pg (26.7-34.0); Mean Corpuscular Volume 86.6 fL (81.0-99.0); Monocytes Absolute Auto 0.9 10^3/uL (0.3-0.8); Monocytes Percent Auto 7.9 % (1.7-12.0); Neutrophils Absolute Auto 8.7 10^3/uL (1.4-6.5); Neutrophils Percent Auto 74.3 % (43.0-75.0); Platelet Count 181 10^3/uL (150-450); Red Blood Count 3.35 10^6/uL (4.20-5.40); Red Cell Distribution Width 18.3 % (11.0-15.0); White Blood Count 11.7 10^3/uL (4.0-11.0)
[2022-12-15] VITALS (7 sets, daily range): BP systolic 130–156; BP diastolic 70–86; PULSE 75–91; RESP 14–18; TEMP 36.3–36.8; O2SAT 90–97; BMI 36.1
[2022-12-15 06:27] LABS: Basophils Percent Auto 0.4 % (0.2-2.0); Eosinophils Absolute Auto 0.3 10^3/uL (0.0-0.7); Eosinophils Percent Auto 2.3 % (0.9-7.0); Hematocrit 24.8 % (36.0-48.0); Hemoglobin 8.2 g/dL (12.0-16.0); Immature Granulocytes Abs Auto 0.05 10^3/uL (0.00-0.03); Immature Granulocytes Pct Auto 0.5 % (0.0-0.5); Lymphocytes Absolute Auto 1.7 10^3/uL (1.2-3.8); Lymphocytes Percent Auto 15.6 % (20.5-60.0); Mean Corpuscular HGB Conc 33.1 g/dL (29.9-35.2); Mean Corpuscular Hemoglobin 28.4 pg (26.7-34.0); Mean Corpuscular Volume 85.8 fL (81.0-99.0); Monocytes Absolute Auto 0.9 10^3/uL (0.3-0.8); Monocytes Percent Auto 8.1 % (1.7-12.0); Neutrophils Absolute Auto 7.8 10^3/uL (1.4-6.5); Neutrophils Percent Auto 73.1 % (43.0-75.0); Platelet Count 161 10^3/uL (150-450); Red Blood Count 2.89 10^6/uL (4.20-5.40); White Blood Count 10.7 10^3/uL (4.0-11.0)
[2022-12-15 06:54] LABS: Alanine Aminotransferase 20 U/L (14-59); Albumin Globulin Ratio 0.8; Albumin Level 2.4 g/dL (3.4-5.0); Alkaline Phosphatase 31 U/L (46-116); Anion Gap 10.7; Aspartate Amino Transferase 25 U/L (15-37); Bilirubin Total 0.3 mg/dL (0.2-1.0); Calcium 8.5 mg/dL (8.5-10.1); Carbon Dioxide 25.1 mmol/L (21.0-32.0); Chloride 109 mmol/L (98-107); Estimated GFR (African America 52 (>=60); Estimated GFR (Non-African Ame 43 (>=60); Globulin 3.1 g/dL; Glucose 99 mg/dL (74-106); Potassium 4.8 mmol/L (3.5-5.1); Sodium 140 mmol/L (136-145); Total Protein 5.5 g/dL (6.4-8.2)
[2022-12-15] MEDS: PANTOPRAZOLE SODIUM 40 MG VIAL IV ×2 (09:36→20:34)
[2022-12-15] MEDS: LACTATED RINGER'S SOLUTION 1,000 ML 50 ML IV (11:51)
--- NOTE | 2022-12-15 12:25 | CM.NOTE ---
Rounds made with Dr. Washington, pt awaiting colonoscopy today. Dr. Washington will reevaluate pt after scope completed.
--- NOTE | 2022-12-15 14:01 | OP_ITS ---
OPERATION DATE: ??12/15/2022 PREOPERATIVE DIAGNOSIS:? Anemia, GI bleeding. POSTOPERATIVE DIAGNOSIS:? Redundant colon with blood throughout the colon. PROCEDURE:? Colonoscopy to proximal transverse colon. SURGEON:? Rizwan Henry M.D. ANESTHESIA:? Monitored anesthesia care. ESTIMATED BLOOD LOSS:? All old blood. INDICATIONS AND CONSENT:? Patient is an 82-year-old female admitted with anemia and dehydration and GI bleeding.? EGD yesterday was negative for a source of bleeding.? She now presents for colonoscopy.? She did require additional two units of packed red blood cells yesterday.? Her hemoglobin is around a little over 8.? Indications, risks, benefits, alternatives of proceeding with colonoscopy were explained extensively to the patient, including the risks of bleeding, colon perforation or anesthetic complications.? All of her questions were answered.? Informed consent was obtained. PROCEDURE:? Patient brought to the operating room, placed in the left lateral decubitus position.? Monitored anesthesia care was provided.? Rectal exam was performed which revealed old blood.? The scope was inserted into the anal canal.? Under direct visualization was advanced.? With the aid of abdominal compression and positional changes, it was only able to be advanced to the proximal transverse colon, where there was poor visualization due to liquid, old, bloody stools throughout the colon.? There was marked redundancy of the colon as well as spasm.? There was blood throughout the colon to at least the area of the proximal transverse colon.? Upon withdrawal of the scope, mucosal surfaces were carefully examined.? There were no mass lesions or inflammatory changes.? There was diverticulosis in the descending and sigmoid colon.? No inflammatory changes or scarring.? No significant hemorrhoidal disease.? Scope was then withdrawn.? Patient tolerated procedure well, was sent to recovery area in good condition. [facility]
--- NOTE | 2022-12-15 15:10 | CM.NOTE ---
Important Message From Medicare discussed with pt, pt verbalizes understanding and signs paper. Original given to pt and copy put on pt's chart.
[2022-12-15] MEDS: CEFTRIAXONE 1,000 MG in 0.9 % SODIUM CHLORIDE 50 ML 100 MG IV (15:16)
[2022-12-15 16:42] LABS: Basophils Percent Auto 0.3 % (0.2-2.0); Eosinophils Absolute Auto 0.1 10^3/uL (0.0-0.7); Eosinophils Percent Auto 1.1 % (0.9-7.0); Hematocrit 24.8 % (36.0-48.0); Immature Granulocytes Abs Auto 0.05 10^3/uL (0.00-0.03); Immature Granulocytes Pct Auto 0.5 % (0.0-0.5); Lymphocytes Absolute Auto 0.9 10^3/uL (1.2-3.8); Lymphocytes Percent Auto 9.2 % (20.5-60.0); Mean Corpuscular HGB Conc 32.3 g/dL (29.9-35.2); Mean Corpuscular Volume 86.7 fL (81.0-99.0); Mean Platelet Volume 9.8 fL (9.5-13.5); Monocytes Absolute Auto 0.8 10^3/uL (0.3-0.8); Monocytes Percent Auto 7.3 % (1.7-12.0); Neutrophils Absolute Auto 8.4 10^3/uL (1.4-6.5); Neutrophils Percent Auto 81.6 % (43.0-75.0); Platelet Count 162 10^3/uL (150-450); Red Blood Count 2.86 10^6/uL (4.20-5.40); Red Cell Distribution Width 18.4 % (11.0-15.0); White Blood Count 10.3 10^3/uL (4.0-11.0)
[2022-12-15] MEDS: DULOXETINE HCL 20 MG CAPSULE.DR PO (17:03)
[2022-12-15] MEDS: DONEPEZIL HCL 5 MG TABLET PO (17:03)
[2022-12-15] MEDS: AMLODIPINE BESYLATE 5 MG TABLET PO (17:03)
--- NOTE | 2022-12-15 18:49 | P.IMPN_ITS ---
Progress Note: A&P Assessment and Plan (1) Hypovolemic shock: Assessment and Plan: due to acute blood loss. Resolved. D/c IVF. (2) Aortic valve replaced: Assessment and Plan: Bovine AVR 6 years ago. On ASA (3) Acute GI bleeding: Assessment and Plan: Obscure source. Normal EGD. Colonoscopy today showed old blood in colon. Ascending colon could not be visualized due to blood. D/w general surgery - will likely need transfer to tertiary care center for CT angiography and GI eval. (4) Symptomatic anemia: Assessment and Plan: S/p 3 units PRBC. More or less stable. (5) Leukocytosis: Assessment and Plan: Resolved. likely reactive. Was empirically treated with Rocephin. Will d/c (6) HLD (hyperlipidemia): Assessment and Plan: c/w statin (7) Dementia: Assessment and Plan: Mild. Normal cognition and thought process. C/w aricept. (8) HTN (hypertension): (9) Acute lactic acidosis: Assessment and Plan: Resumed amlodipine. BP stable now. (10) Positive blood culture: Assessment and Plan: staph hominus. Liekly contaminant. No need for tx. (11) Lactic acidosis: Assessment and Plan: improved. due to shock, hypoeprfusion and acute anemia Internal Medicine - PN: Subj Subjective Interval history: Seen and examined. No overnight events. Hb stable. Exam Constitutional Vital Signs - 24 hr 12/14/22 19:04 12/14/22 20:04 12/14/22 21:04 Temperature 97.5 F L 97.9 F 97.9 F Pulse Rate 76 75 75 Respiratory Rate 16 16 Blood Pressure 147/73 H 136/71 H 156/86 H Blood Pressure [Left Arm] Blood Pressure [Right Arm] Pulse Oximetry 93 L 93 L 93 L Oxygen Delivery Method Room Air Room Air Room Air Oxygen Delivery Flow Rate 2 12/14/22 22:00 12/15/22 06:00 12/15/22 14:20 Temperature 97.9 F 98.2 F 98.2 F Pulse Rate 75 75 75 Respiratory Rate 16 18 18 Blood Pressure Blood Pressure [Left Arm] 156/86 H 156/86 H Blood Pressure [Right Arm] 146/72 H 146/72 H Pulse Oximetry 93 L 90 L 90 L Oxygen Delivery Method Room Air Room Air Room Air Oxygen Delivery Flow Rate 2 12/15/22 14:35 12/15/22 14:50 12/15/22 15:05 Temperature 97.8 F 97.7 F 97.8 F Pulse Rate 83 81 83 Respiratory Rate 16 14 16 Blood Pressure Blood Pressure [Left Arm] 139/70 H 152/71 H 150/73 H Blood Pressure [Right Arm] Pulse Oximetry 95 96 95 Oxygen Delivery Method Room Air Oxygen Delivery Flow Rate 12/15/22 15:25 Temperature 97.9 F Pulse Rate 82 Respiratory Rate 16 Blood Pressure Blood Pressure [Left Arm] 130/71 H Blood Pressure [Right Arm] Pulse Oximetry 94 L Oxygen Delivery Method Oxygen Delivery Flow Rate Documenting provider has reviewed patient's vital signs: yes Common normals: no apparent distress Nutritional appearance: obese HENMT Common normals: normocephalic and head/scalp atraumatic Eye Common normals: conjunctivae normal and no scleral icterus Respiratory Common normals: normal respiratory effort, no use of accessory muscles and clear to auscultation bilaterally Cardio Common normals: regular rate, regular rhythm, S1 normal heart sound and S2 normal heart sound GI Common normals: Normal to inspection, nondistended, normoactive bowel sounds present, non-tender and no hepatosplenomegaly Extremity Common normals: normal to inspection and full ROM Neuro Common normals: oriented x3, moves all extremities, no focal motor deficits and no sensory deficits noted Psych Common normals: mental status grossly normal, thought process normal, cooperative, denies homicidal ideation and denies suicidal ideation Internal Medicine - PN: Obj Da Labs Labs: Laboratory Results - last 24 hr 12/13/22 12/14/22 12/15/22 08:21 19:30 05:40 WBC 11.7 H 10.7 RBC 3.35 L 2.89 L Hgb 9.5 L 8.2 L Hct 29.0 L 24.8 L MCV 86.6 85.8 MCH 28.4 28.4 MCHC 32.8 33.1 RDW 18.3 H 18.0 H Plt Count 181 161 MPV 10.0 10.0 Neut % (Auto) 74.3 73.1 Lymph % (Auto) 15.0 L 15.6 L [place] % (Auto) 7.9 8.1 Eos % (Auto) 1.9 2.3 Baso % (Auto) 0.4 0.4 Neut # (Auto) 8.7 H 7.8 H Lymph # (Auto) 1.8 1.7 [place] # (Auto) 0.9 H 0.9 H Eos # (Auto) 0.2 0.3 Baso # (Auto) 0.1 0.0 Abs Immat Gran (auto) 0.06 H 0.05 H Imm/Tot Granulo (auto) 0.5 0.5 Sodium 140 Potassium 4.8 Chloride 109 H Carbon Dioxide 25.1 Anion Gap 10.7 BUN 29.0 H Creatinine 1.21 H Est GFR ( Amer) 52 L Est GFR (Non-Af Amer) 43 L BUN/Creatinine Ratio 24.0 Glucose 99 Calcium 8.5 Total Bilirubin 0.3 AST 25 ALT 20 Alkaline Phosphatase 31 L Total Protein 5.5 L Albumin 2.4 L Globulin 3.1 Albumin/Globulin Ratio 0.8 Crossmatch See Detail 12/15/22 16:30 WBC 10.3 RBC 2.86 L Hgb 8.0 L Hct 24.8 L MCV 86.7 MCH 28.0 MCHC 32.3 RDW 18.4 H Plt Count 162 MPV 9.8 Neut % (Auto) 81.6 H Lymph % (Auto) 9.2 L [place] % (Auto) 7.3 Eos % (Auto) 1.1 Baso % (Auto) 0.3 Neut # (Auto) 8.4 H Lymph # (Auto) 0.9 L [place] # (Auto) 0.8 Eos # (Auto) 0.1 Baso # (Auto) 0.0 Abs Immat Gran (auto) 0.05 H Imm/Tot Granulo (auto) 0.5 Sodium Potassium Chloride Carbon Dioxide Anion Gap BUN Creatinine Est GFR ( Amer) Est GFR (Non-Af Amer) BUN/Creatinine Ratio Glucose Calcium Total Bilirubin AST ALT Alkaline Phosphatase Total Protein Albumin Globulin Albumin/Globulin Ratio Crossmatch
[2022-12-15 21:16] LABS: Hematocrit 24.7 % (36.0-48.0); Hemoglobin 7.8 g/dL (12.0-16.0)
[2022-12-16] MEDS: LACTATED RINGER'S SOLUTION 1,000 ML 50 ML IV (05:06)
[2022-12-16 05:08] VITALS: BP 148/80; PULSE 86; RESP 16; TEMP 36.7; O2SAT 95
[2022-12-16 05:34] LABS: Basophils Percent Auto 0.3 % (0.2-2.0); Eosinophils Absolute Auto 0.2 10^3/uL (0.0-0.7); Hemoglobin 7.6 g/dL (12.0-16.0); Immature Granulocytes Abs Auto 0.04 10^3/uL (0.00-0.03); Immature Granulocytes Pct Auto 0.4 % (0.0-0.5); Lymphocytes Absolute Auto 1.5 10^3/uL (1.2-3.8); Lymphocytes Percent Auto 16.1 % (20.5-60.0); Mean Corpuscular HGB Conc 32.5 g/dL (29.9-35.2); Mean Corpuscular Hemoglobin 28.1 pg (26.7-34.0); Mean Corpuscular Volume 86.7 fL (81.0-99.0); Monocytes Absolute Auto 0.7 10^3/uL (0.3-0.8); Monocytes Percent Auto 7.4 % (1.7-12.0); Neutrophils Absolute Auto 6.7 10^3/uL (1.4-6.5); Neutrophils Percent Auto 73.8 % (43.0-75.0); Platelet Count 123 10^3/uL (150-450); Red Cell Distribution Width 18.6 % (11.0-15.0)
[2022-12-16 05:37] LABS: Hematocrit 23.4 % (36.0-48.0)
[2022-12-16 06:03] LABS: Alanine Aminotransferase 18 U/L (14-59); Albumin Globulin Ratio 0.9; Albumin Level 2.6 g/dL (3.4-5.0); Alkaline Phosphatase 33 U/L (46-116); Anion Gap 11.6; Aspartate Amino Transferase 29 U/L (15-37); Bilirubin Total 0.2 mg/dL (0.2-1.0); Calcium 8.7 mg/dL (8.5-10.1); Carbon Dioxide 23.8 mmol/L (21.0-32.0); Chloride 108 mmol/L (98-107); Estimated GFR (African America 58 (>=60); Estimated GFR (Non-African Ame 48 (>=60); Glucose 106 mg/dL (74-106); Potassium 4.4 mmol/L (3.5-5.1); Sodium 139 mmol/L (136-145); Total Protein 5.6 g/dL (6.4-8.2)
[2022-12-16] MEDS: DULOXETINE HCL 20 MG CAPSULE.DR PO (09:46)
[2022-12-16] MEDS: AMLODIPINE BESYLATE 5 MG TABLET PO (09:47)
[2022-12-16] MEDS: DONEPEZIL HCL 5 MG TABLET PO (09:47)
[2022-12-16] MEDS: 0.9 % SODIUM CHLORIDE 250 ML 100 ML IV (09:47)
[2022-12-16] MEDS: PANTOPRAZOLE SODIUM 40 MG VIAL IV (09:47)
[2022-12-16 10:16] VITALS: BP 162/75; PULSE 97; RESP 18; TEMP 36.7; O2SAT 93
[2022-12-16 10:29] VITALS: BP 136/74; PULSE 84; RESP 16; TEMP 36.9; O2SAT 96
[2022-12-16 10:30] VITALS: BP 136/74; PULSE 84; RESP 16; TEMP 36.9; O2SAT 96
--- NOTE | 2022-12-16 11:04 | REH.PTDLY ---
Physical Therapy Daily Note PT Daily Note/Assess Start: 12/15/22 14:07 Freq: Status: Active Protocol: Document 12/16/22 10:20 DORINDA (Rec: 12/16/22 11:04 DORINDA [id number]) Physical Therapy Daily Note/Assessment Time In 10:08 Time Out 10:18 Pain Level 0 Pain Level 0 Subjective No complaints, pt willing to participate in therapy. Pt sitting bedside with OT upon arrival. Therapeutic Exercise Minutes (minutes) 4 Therapeutic Exercise Units 0 Therapeutic Exercise Treatment Instructed in B LE seated exs 10x ea including AP, LAQ, and marching. Therapeutic Activity Minutes (minutes) 6 Therapeutic Activity Units 1 Bed Mobility Ability Minimum Assist Chair Transfer Ability Contact Guard Assist Therapeutic Activity Comments Sit to stand transfers from EOB SBA. Gait training with rollator 80 feet CGA with SOB noted afterwards, cues needed for pt to help catch her breath. Pt requires Min A with LEs to lay supine afterwards. Total Therapy Minutes 10 Total Physical Therapy Units 1 Daily Note Summary Pt has increased fatigue with increased gait distance today. Pt is a possible transfer to another hospital today.
[2022-12-16 11:33] VITALS: BP 149/80; PULSE 83; RESP 18; TEMP 36.7; O2SAT 96
[2022-12-16 12:40] VITALS: BP 138/70; PULSE 87; RESP 18; TEMP 36.8; O2SAT 96
--- NOTE | 2022-12-16 12:52 | CM.NOTE ---
Rounds made with Dr. Washington, discussed with pt and family about transfer to tertiary hospital for further care and testing that is unable to be performed at our facility.
--- NOTE | 2022-12-16 13:47 | P.DS_ITS ---
DS: Providers Provider Date of admission: 12/13/22 11:31 Primary care physician: RAYRAY JARRETT Admitting clinician: Shaikh Padmini Attending physician on admission: Shaikh Padmini Consults: 12/13/22 11:14 Occupational Therapy Eval and Treat Routine Physical Therapy Eval and Treat Routine 12/13/22 11:17 Occupational Therapy Eval and Treat Routine Physical Therapy Eval and Treat Routine 12/13/22 11:35 Consult to General Surgeon Routine Consulting Provider: Rizwan Henry 12/14/22 11:53 Occupational Therapy Eval and Treat Routine Physical Therapy Eval and Treat Routine Attending physician on discharge: Shaikh Padmini Discharging clinician: Shaikh Padmini Anticipated date of discharge: 12/16/22 DS: Diagnosis Discharge Diagnosis (1) Hypovolemic shock: Assessment and plan: Resolved. 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 On ASA as outpatiet. ASA on hold due to GIB. (3) Acute GI bleeding: Assessment and plan: Normal EGD except for hiatal hernia Colonoscopy - inadequate visualization of colon and provider was unable to visualize transvere/ascending colon due to blood/fluid present. Has received 4 units of PRBC uptil now. Slow/persistent decline in Hb and Hb has not been persistently above 8 w/o requiring transfusion. Hb 7.6 this am - ordered one unit PRBC Denies active melena or blood in stool. On clear liquid. Started on Prep for colonoscopy after d/w GI at [facility] [[email or web address]] and made NPO after MN for Colonoscopy tomorrow. (4) Symptomatic anemia: Assessment and plan: Hb continues to slowly decline and patient has required 4 units of PRC until now. Will be transferred to [facility] [[email or web address]] for GI eval (5) Leukocytosis: Assessment and plan: resolved. CXR showed possible atelctasis/PNA but no resp symptoms. Was receivign rocephin empirically - d/frank. (6) HLD (hyperlipidemia): Assessment and plan: c/w statin (7) Dementia: Assessment and plan: Aox3. mild symptoms. on Aricept (8) HTN (hypertension): Assessment and plan: Resumed home meds (9) Acute lactic acidosis: Assessment and plan: resolved (10) Positive blood culture: Assessment and plan: Staph hominus in cultures. likely contaminant. No need for rx (11) Lactic acidosis: Assessment and plan: resolved DS: Summary Hospital Course Hospital Course: Patient admitted for hypovolemic shock due to acute GIB. Resuscitated with IV fluids and PRBC transfusion. She has stable hemodynamics now. She had EGD - hiatal hernia. No PUD/gastritis. Colonoscopy - inadequate visualization of colon and provider was unable to visualize transvere/ascending colon due to blood/fluid present. Slow/persistent drop in Hb requiring transfusion. Patient will be transferred to [facility] [[email or web address]] for GI evaluation. Started on colonoscopy prep after d/w GI for repeat colonoscopy tomorrow Status at Discharge Overall status at discharge: patient is back to baseline Time Spent with Patient Time attestation: Total time spent providing and/or coordinating discharge services: Time spent: greater than 30 minutes Exam Constitutional Vital Signs - 24 hr 12/15/22 14:20 12/15/22 14:35 12/15/22 14:50 Temperature 98.2 F 97.8 F 97.7 F Pulse Rate 75 83 81 Respiratory Rate 18 16 14 Blood Pressure Blood Pressure [Left Arm] 156/86 H 139/70 H 152/71 H Blood Pressure [Right Arm] 146/72 H Pulse Oximetry 90 L 95 96 Oxygen Delivery Method Room Air Oxygen Delivery Flow Rate 2 12/15/22 15:05 12/15/22 15:25 12/15/22 21:43 Temperature 97.8 F 97.9 F 97.3 F L Pulse Rate 83 82 91 H Respiratory Rate 16 16 16 Blood Pressure Blood Pressure [Left Arm] 150/73 H 130/71 H 144/72 H Blood Pressure [Right Arm] Pulse Oximetry 95 94 L 97 Oxygen Delivery Method Room Air Room Air Oxygen Delivery Flow Rate 12/16/22 05:08 12/16/22 10:16 12/16/22 10:29 Temperature 98.0 F 98.0 F 98.4 F Pulse Rate 86 97 H 84 Respiratory Rate 16 18 16 Blood Pressure 162/75 H 136/74 H Blood Pressure [Left Arm] 148/80 H Blood Pressure [Right Arm] Pulse Oximetry 95 93 L 96 Oxygen Delivery Method Room Air Room Air Room Air Oxygen Delivery Flow Rate 12/16/22 10:30 12/16/22 11:33 12/16/22 12:40 Temperature 98.4 F 98.0 F 98.2 F Pulse Rate 84 83 87 Respiratory Rate 16 18 18 Blood Pressure 136/74 H 149/80 H 138/70 H Blood Pressure [Left Arm] Blood Pressure [Right Arm] Pulse Oximetry 96 96 96 Oxygen Delivery Method Room Air Room Air Oxygen Delivery Flow Rate 2 Documenting provider has reviewed patient's vital signs: yes Common normals: no apparent distress Nutritional appearance: obese HENMT Common normals: normocephalic and head/scalp atraumatic Eye Common normals: conjunctivae normal and no scleral icterus Respiratory Common normals: normal respiratory effort, no use of accessory muscles and clear to auscultation bilaterally Cardio Common normals: regular rate, regular rhythm, S1 normal heart sound and S2 normal heart sound GI Common normals: Normal to inspection, nondistended, normoactive bowel sounds present, non-tender and no hepatosplenomegaly Extremity Common normals: normal to inspection and full ROM Neuro Common normals: oriented x3, moves all extremities, no focal motor deficits and no sensory deficits noted Psych Common normals: mental status grossly normal, thought process normal, cooperative, denies homicidal ideation and denies suicidal ideation DS: Data Data Completed and Pending Labs on day of discharge: Labs from last 24 hours 12/16/22 12/15/22 12/15/22 05:10 21:10 16:30 WBC 9.0 10.3 RBC 2.70 L 2.86 L Hgb 7.6 L 7.8 L 8.0 L Hct 23.4 L* 24.7 L 24.8 L MCV 86.7 86.7 MCH 28.1 28.0 MCHC 32.5 32.3 RDW 18.6 H 18.4 H Plt Count 123 L 162 MPV 11.0 9.8 Neut % (Auto) 73.8 81.6 H Lymph % (Auto) 16.1 L 9.2 L [place] % (Auto) 7.4 7.3 Eos % (Auto) 2.0 1.1 Baso % (Auto) 0.3 0.3 Neut # (Auto) 6.7 H 8.4 H Lymph # (Auto) 1.5 0.9 L [place] # (Auto) 0.7 0.8 Eos # (Auto) 0.2 0.1 Baso # (Auto) 0.0 0.0 Abs Immat Gran (auto) 0.04 H 0.05 H Imm/Tot Granulo (auto) 0.4 0.5 Sodium 139 Potassium 4.4 Chloride 108 H Carbon Dioxide 23.8 Anion Gap 11.6 BUN 22.0 H Creatinine 1.10 H Est GFR ( Amer) 58 L Est GFR (Non-Af Amer) 48 L BUN/Creatinine Ratio 20.0 Glucose 106 Calcium 8.7 Total Bilirubin 0.2 AST 29 ALT 18 Alkaline Phosphatase 33 L Total Protein 5.6 L Albumin 2.6 L Globulin 3.0 Albumin/Globulin Ratio 0.9 Blood Type Antibody Screen Crossmatch 12/13/22 08:21 WBC RBC Hgb Hct MCV MCH MCHC RDW Plt Count MPV Neut % (Auto) Lymph % (Auto) [place] % (Auto) Eos % (Auto) Baso % (Auto) Neut # (Auto) Lymph # (Auto) [place] # (Auto) Eos # (Auto) Baso # (Auto) Abs Immat Gran (auto) Imm/Tot Granulo (auto) Sodium Potassium Chloride Carbon Dioxide Anion Gap BUN Creatinine Est GFR ( Amer) Est GFR (Non-Af Amer) BUN/Creatinine Ratio Glucose Calcium Total Bilirubin AST ALT Alkaline Phosphatase Total Protein Albumin Globulin Albumin/Globulin Ratio Blood Type A Positive Antibody Screen Negative Crossmatch See Detail Preliminary micro results at discharge 12/13/22 08:21 - Preliminary Blood Bacillus megaterium 12/13/22 08:15 Blood Culture Result 1 - Preliminary Blood Staphylococcus hominis Discharge Plan Discharge Disposition: [facility] Condition: Fair Discharge Medications: No Action amlodipine 5 mg tablet 5 mg PO DAILY donepezil 5 mg tablet 5 mg PO DAILY duloxetine 20 mg capsule,delayed release(DR/EC) 20 mg PO DAILY lisinopril 40 mg tablet 40 mg PO DAILY rosuvastatin 40 mg tablet 40 mg PO DAILY trazodone 50 mg tablet 50 mg PO .HS aspirin [Adult Low Dose Aspirin] 81 mg tablet,delayed release (DR/EC) 81 mg PO DAILY Program Director/Morning Show Host/Receiver Setter Instructions: Discharge with lEisabeth JAIME, phone number to contact is [phone]. They will contact within 48 hours to set up first appointment. Discharge location: [facility] [[email or web address]]
[2022-12-16] MEDS: BISACODYL 5 MG TABLET 10 MG PO (14:38)
[2022-12-16] MEDS: PEG3350/SOD SULF,BICARB,CL/KCL 4,000 ML SOLN.RECON 4000 ML PO (14:42)
== END 2022-12-16 16:31 | disposition short-term general hospital (02) | DRG 811 ==
LOC: ER 11:26 → MS 11:33
PROVIDERS: Surgery; Admitting Provider Internal Medicine; Emergency Provider Emergency Medicine; PCP Nurse Practitioner Family; Visit Provider Internal Medicine
PROC: 0DJ08ZZ Inspection of Upper Intestinal Tract, Via Natural or Artificial Opening Endoscopic (ICD-10-PCS; principal; 2022-12-14 12:00)
PROC: 0DJD8ZZ Inspection of Lower Intestinal Tract, Via Natural or Artificial Opening Endoscopic (ICD-10-PCS; principal; 2022-12-15 11:20)
DX: D62 Acute posthemorrhagic anemia (principal); R57.1 Hypovolemic shock; E87.21 Acute metabolic acidosis; K44.9 Diaphragmatic hernia without obstruction or gangrene; D72.829 Elevated white blood cell count, unspecified; E78.5 Hyperlipidemia, unspecified; F03.A0 Unspecified dementia, mild, without behavioral disturbance, psychotic disturbance, mood disturbance, and anxiety; K57.30 Diverticulosis of large intestine without perforation or abscess without bleeding; I10 Essential (primary) hypertension; M19.90 Unspecified osteoarthritis, unspecified site; Z20.822 Contact with and (suspected) exposure to COVID-19; Z66 Do not resuscitate; Z51.5 Encounter for palliative care; Z95.3 Presence of xenogenic heart valve; Z96.659 Presence of unspecified artificial knee joint; Z97.2 Presence of dental prosthetic device (complete) (partial); Z79.899 Other long term (current) drug therapy; Z79.82 Long term (current) use of aspirin; Z90.49 Acquired absence of other specified parts of digestive tract; Z98.890 Other specified postprocedural states; Z82.49 Family history of ischemic heart disease and other diseases of the circulatory system
CPT/HCPCS: 36415; 36416; 36430; 36600; 70450; 71045; 80048; 80053; 80179; 80307; 80320; 80329; 81003; 82805; 83605; 83690; 83735; 83880; 84484; 85007; 85014; 85018; 85025; 85610; 85730; 86850; 86900; 86901; 87040; 87150; 87186; 87635; 87811; 93005; 96365; 96366; 96367; 96368; 96375; 96376; 97161; 97165; 97530; 97535; 99285; G0328; J1756; J2704; J3370; P9016; U0003

== ENCOUNTER 2022-12-27 12:03 | Outpatient (OUT) | payer MEDICARE, OTHER, SELFPAY ==
--- NOTE | 2022-12-27 12:31 | XR_ITS ---
[address] [address] Patient Name: ALETA RODRIGUEZ MRN: [id number] date: 1940 Sex: F Assigned Patient Location: LAB Current Patient Location: LAB Accession/Order Number: [id number] Exam Date: 12/27/2022 12:42 Report Date: 12/27/2022 12:58 At the request of: RAYRAY JARRETT Procedure: XR chest 2V EXAM: XR chest 2V HISTORY: Coarse rhonchii aND generalized edema R60.1 COMPARISON: None. TECHNIQUE: PA and lateral views of the chest. FINDINGS: The cardiomediastinal silhouette is normal. Linear opacity of the right middle lobe and lingula. There is no pneumothorax. Small bilateral pleural effusions. The osseous structures are intact. IMPRESSION: Probable atelectasis and/or developing pneumonia of the right middle lobe and lingula. Electronically authenticated by: PETERSON ROLDAN Date: 12/27/2022 12:58
[2022-12-27 12:40] LABS: Basophils Absolute Auto 0.1 10^3/uL (0.0-0.1); Basophils Percent Auto 0.7 % (0.2-2.0); Eosinophils Absolute Auto 0.3 10^3/uL (0.0-0.7); Eosinophils Percent Auto 3.7 % (0.9-7.0); Hematocrit 27.4 % (36.0-48.0); Hemoglobin 8.5 g/dL (12.0-16.0); Immature Granulocytes Abs Auto 0.03 10^3/uL (0.00-0.03); Immature Granulocytes Pct Auto 0.3 % (0.0-0.5); Lymphocytes Absolute Auto 1.6 10^3/uL (1.2-3.8); Lymphocytes Percent Auto 18.3 % (20.5-60.0); Mean Corpuscular Hemoglobin 28.8 pg (26.7-34.0); Mean Corpuscular Volume 92.9 fL (81.0-99.0); Mean Platelet Volume 9.9 fL (9.5-13.5); Monocytes Absolute Auto 0.7 10^3/uL (0.3-0.8); Monocytes Percent Auto 8.2 % (1.7-12.0); Neutrophils Absolute Auto 5.9 10^3/uL (1.4-6.5); Neutrophils Percent Auto 68.8 % (43.0-75.0); Platelet Count 310 10^3/uL (150-450); Red Blood Count 2.95 10^6/uL (4.20-5.40); Red Cell Distribution Width 17.3 % (11.0-15.0); White Blood Count 8.6 10^3/uL (4.0-11.0)
[2022-12-27 13:11] LABS: Anion Gap 15.6; BUN Creatinine Ratio 11.6; Calcium 8.8 mg/dL (8.5-10.1); Carbon Dioxide 25.5 mmol/L (21.0-32.0); Chloride 101 mmol/L (98-107); Estimated GFR (African America 44 (>=60); Estimated GFR (Non-African Ame 37 (>=60); Glucose 109 mg/dL (74-106); Potassium 4.1 mmol/L (3.5-5.1); Sodium 138 mmol/L (136-145)
== END 2022-12-27 12:04 | disposition home or self-care (01) ==
LOC: LAB 12:12
PROVIDERS: PCP Nurse Practitioner Family; Visit Provider Nurse Practitioner Family
DX: I12.9 Hypertensive chronic kidney disease with stage 1 through stage 4 chronic kidney disease, or unspecified chronic kidney disease (principal); N18.30 Chronic kidney disease, stage 3 unspecified; I51.89 Other ill-defined heart diseases; R60.1 Generalized edema; K92.2 Gastrointestinal hemorrhage, unspecified
CPT/HCPCS: 36415; 71046; 80048; 83880; 85025

== ENCOUNTER 2023-09-01 12:23 | Emergency (ER) | payer MEDICARE, OTHER, SELFPAY ==
[2023-09-01] VITALS (11 sets, daily range): BP systolic 148–177; BP diastolic 75–91; PULSE 73–86; RESP 13–18; TEMP 36.7; O2SAT 91–98; BMI 33.3
--- NOTE | 2023-09-01 12:36 | ECG_ITS ---
[facility] Test Date: 2023-09-01 Pat Name: ALETA RODRIGUEZ Department: Room: - Gender: Female Chefs: : 1940 Requested By: Destiney Paula Order Number: [id number] Reading MD: SILVANA FALCON Measurements Intervals [place] Rate: 79 P: 27 GA: 142 QRS: 54 QRSD: 130 T: 240 QT: 408 QTc: 442 Interpretive Statements 1100 Sinus rhythm LEFT BUNDLE BRANCH BLOCK w/ secondary ST/T wave changes 9150 abnormal ECG Electronically Signed On 09-01-2023 23:11:32 EST by SILVANA FALCON
--- NOTE | 2023-09-01 12:49 | ED_ITS ---
HPI - Back Pain/Injury General Chief Complaint: Back Pain/Injury Stated Complaint: BACK PAIN Time Seen by Provider: 09/01/23 12:44 Source: patient Mode of arrival: walk-in History of Present Illness HPI Narrative: This patient is here with her family for evaluation of low back pain. It has been bothering her for several days. The pain has not ratcheted up or gotten any worse. The pain seems to be much worse with any type of movement. Normally she walks with a walker. To her knowledge she has not fallen at all. She has not had back surgery before. She has no pain radiating down her buttock or into her legs. No tingling or numbness. She has no history of vascular diseases. She has had a cholecystectomy and also recently had hiatal hernia repair. She does not have any abdominal discomfort. She has no difficulty voiding or urinating. She has not had any incontinence. She has not been running a fever. She is not on any new medications. She takes aspirin but no other blood thinners. Patient recently had hernia repair at [facility] approximately 3 months ago. Prior to that time she had a extensive GI bleed and the daughter is not sure if they localize the bleeding from the upper or lower bowel when they did their endoscopy. Incidentally today she is not noticing any blood in her stool or bloody vomitus. Related Data Home Medications Medication Instructions Recorded Confirmed amlodipine 5 mg tablet 5 mg PO DAILY 12/13/22 09/01/23 aspirin 81 mg tablet,delayed 81 mg PO DAILY 12/13/22 09/01/23 release (Adult Low Dose Aspirin) donepezil 5 mg tablet 5 mg PO DAILY 12/13/22 09/01/23 duloxetine 20 mg capsule,delayed 20 mg PO DAILY 12/13/22 09/01/23 release lisinopril 40 mg tablet 40 mg PO DAILY 12/13/22 12/13/22 rosuvastatin 40 mg tablet 40 mg PO DAILY 12/13/22 09/01/23 ferrous sulfate 325 mg (65 mg 325 mg PO DAILY 09/01/23 09/01/23 iron) tablet multivitamin (Daily Value tablet) 1 tab PO DAILY 09/01/23 09/01/23 pantoprazole 40 mg tablet,delayed 40 mg PO DAILY 09/01/23 09/01/23 release Allergies Allergy/AdvReac Type Severity Reaction Status Date / Time No Known Drug Allergies Allergy Verified 12/13/22 13:[address] [facility] Medical History (Updated 09/01/23 @ 18:01 by Kit Tijerina MD) HTN (hypertension) ?I10 - Essential (primary) hypertension (ICD-10) Dementia ?F03.90 - Unspecified dementia, unspecified severity, without behavioral disturbance, psychotic disturbance, mood disturbance, and anxiety (ICD-10) HLD (hyperlipidemia) ?E78.5 - Hyperlipidemia, unspecified (ICD-10) Deficient knowledge of valve replacement Surgical History Aortic valve replaced ?Z95.2 - Presence of prosthetic heart valve (ICD-10) History of knee replacement ?Z96.659 - Presence of unspecified artificial knee joint (ICD-10) History of appendectomy ?Z90.49 - Acquired absence of other specified parts of digestive tract (ICD- 10) History of cholecystectomy ?Z90.49 - Acquired absence of other specified parts of digestive tract (ICD- 10) Hx of tonsillectomy ?Z90.89 - Acquired absence of other organs (ICD-10) Family History Father Family history of hypertension Other Family history of myocardial infarction Social History Within the past year, how often did you have six or more drinks on one occasion: never Smoking status: Never smoker Second hand tobacco smoke exposure: No Non-prescribed substance use: denies use 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 Known occupational exposures/hazards: No Highest level of school completed/degree received: high school graduate Do you want help with school or training: No Are you now , , , , never or living with a partner: In a typical week, how many times do you talk on the telephone with family, friends, or neighbors: 3 or more times per week How often do you get together with friends or relatives: 3 or more times per week How often do you attend advent or mormon services: 1-3 times per year Do you belong to any clubs or organizations such as advent groups unions, fraternal or athletic groups, or school groups: no Total score: 1 Score interpretation: A score of less than or equal to 1 indicates the most socially isolated. Little interest or pleasure in doing things: several days Feeling down, depressed, or hopeless: not at all Feel stressed/tense/nervous/anxious/difficulty sleeping: not at all Due to disability, difficulty making decisions: No Gender Identity: female Exam Narrative Exam Narrative: Awake alert appears uncomfortable as long as she is lying flat on her back she does not appear to be too bad but since we try to roll her or sit her up she is got severe pain in the lower lumbar area midline and no abdominal pain. She has no paresis or paresthesias. HEENT she shows no evidence of anemia or conjunctivitis. The neck is soft and supple craniofacial structures show no abnormalities. Respiratory status her lungs are completely clear. There is no evidence of shingles or any other injury to the back or spinal area. Her pain is in the midline. Heart sounds are normal. She does have multiple incisions throughout the abdominal wall. She has no tenderness in the right upper quadrant. There is no pulsatile masses. She has good perfusion to the lower extremities. She has no tenderness to palpation in the left upper quadrant. Cognition mentation and mental status are excellent. Constitutional Vital Signs, click to edit/add: Last Vital Signs Temp 98.0 F 09/01/23 12:27 Pulse 81 09/01/23 16:54 Resp 09/01/23 16:54 BP 150/75 H 09/01/23 16:54 Pulse Ox 94 L 09/01/23 16:54 O2 Del Method Room Air 09/01/23 12:27 Course Vital Signs Vital signs: Vital Signs Temperature 98.0 F 09/01/23 12:27 Pulse Rate 84 09/01/23 12:27 Respiratory Rate 18 09/01/23 12:27 Blood Pressure 167/77 H 09/01/23 12:27 Pulse Oximetry 91 L 09/01/23 12:27 Oxygen Delivery Method Room Air 09/01/23 12:27 Temperature 98.0 F 09/01/23 12:27 Pulse Rate 81 09/01/23 16:54 Respiratory Rate 18 09/01/23 16:54 Blood Pressure 150/75 H 09/01/23 16:54 Pulse Oximetry 94 L 09/01/23 16:54 Oxygen Delivery Method Room Air 09/01/23 12:27 MDM - Back Pain/Injury MDM Narrative Medical decision making narrative: This patient is normal ambulatory but for the last 3 to 4 days she has excruciating pain when she tries to ambulate. She had had previous hip repair but the pain is not in her hip it is directly in the midline of her lumbar area. CT of the abdomen was done and has a multitude of findings. Laboratory testing is essentially normal. The CT report was noted and shared with our on-call hospitalist. Dr. Driscoll felt that this patient should be transferred to a tertiary center where they have full services available should they proceed with the surgical procedure for her back. Most important findings appear to be a 25% loss of vertebral body height on L5. There is multiple other compression fractures throughout the thoracic and lumbar spine. Additionally she has a small acute splenic infarct with perisplenic fluid. She has narrowing of the bilateral renal arteries. She has heavy calcification of greater than 60% stenosis within the proximal superior mesenteric artery with flow preserved distally. She also has a large supraumbilical ventral hernia containing nonobstructed small bowel and a portion of the transverse colon. There is colonic diverticulosis but no diverticulitis. The patient was given analgesics and has some modest relief. We are currently waiting for response from her tertiary care center where she has had several previous surgeries done at [facility] Lab Data Labs: Lab Results 09/01/23 09/01/23 09/01/23 Range/Units 13:06 14:47 17:06 WBC 9.8 (4.0-11.0) 10^3/uL RBC 4.77 (4.20-5.40) 10^6/uL Hgb 14.4 (12.0-16.0) g/dL Hct 44.8 (36.0-48.0) % MCV 93.9 (81.0-99.0) fL MCH 30.2 (26.7-34.0) pg MCHC 32.1 (29.9-35.2) g/dL RDW 13.6 (11.0-15.0) % Plt Count 219 (150-450) 10^3/uL MPV 10.4 (9.5-13.5) fL Neut % (Auto) 81.9 H (43.0-75.0) % Lymph % (Auto) 8.0 L (20.5-60.0) % [place] % (Auto) 8.6 (1.7-12.0) % Eos % (Auto) 0.5 L (0.9-7.0) % Baso % (Auto) 0.6 (0.2-2.0) % Neut # (Auto) 8.0 H (1.4-6.5) 10^3/uL Lymph # (Auto) 0.8 L (1.2-3.8) 10^3/uL [place] # (Auto) 0.8 (0.3-0.8) 10^3/uL Eos # (Auto) 0.1 (0.0-0.7) 10^3/uL Baso # (Auto) 0.1 (0.0-0.1) 10^3/uL Abs Immat Gran (auto) 0.04 H (0.00-0.03) 10^3/uL Imm/Tot Granulo (auto) 0.4 (0.0-0.5) % Sodium 141 (136-145) mmol/L Potassium 4.0 (3.5-5.1) mmol/L Chloride 103 (98-107) mmol/L Carbon Dioxide 27.1 (21.0-32.0) mmol/L Anion Gap 14.9 BUN 20.0 H (7.0-18.0) mg/dL Creatinine 1.35 H (0.55-1.02) mg/dL Est GFR ( Amer) 45 L (>=60) Est GFR (Non-Af Amer) 38 L (>=60) BUN/Creatinine Ratio 14.8 Glucose 121 H (74-106) mg/dL Lactate 1.2 (0.4-2.0) mmol/L Calcium 9.3 (8.5-10.1) mg/dL Total Bilirubin 0.4 (0.2-1.0) mg/dL AST 20 (15-37) U/L ALT 20 (14-59) U/L Alkaline Phosphatase 68 (46-116) U/L Troponin I High Sens 11.1 (4.0-51.3) pg/mL Total Protein 8.2 (6.4-8.2) g/dL Albumin 3.4 (3.4-5.0) g/dL Globulin 4.8 g/dL Albumin/Globulin Ratio 0.7 Urine Color Yellow (YELLOW) Urine Clarity Clear (CLEAR) Urine pH 6.0 (5.0-9.0) Ur Specific [place] >=1.030 A (1.005-1.025) Urine Protein 100 A (NEG/TRACE) mg/dL Urine Glucose (UA) Negative (NEGATIVE) mg/dL Urine Ketones Trace A (NEGATIVE) mg/dL Urine Occult Blood Negative (NEGATIVE) Urine Nitrite Negative (NEGATIVE) Urine Bilirubin Negative (NEGATIVE) Urine Urobilinogen 0.2 (0.2-1.0) EU/dL Ur Leukocyte Esterase Negative (NEGATIVE) Urine RBC 0-2 (0-2) #/HPF Urine WBC 0-2 A (NONE SEEN) #/HPF Ur Squamous Epith Cells Few A (NONE/RARE) #/LPF Urine Crystals None seen (None Seen) #/HPF Urine Bacteria Trace A (NONE SEEN) #/HPF Urine Casts None seen (NONE SEEN) #/LPF Urine Mucus None seen (NONE SEEN) Ur Culture Indicated? No SARS-CoV-2 Ag (CV2AG) Negative (NEGATIVE) Discharge Plan Discharge Chief Complaint: Back Pain/Injury Clinical Impression: Closed compression fracture of L5 vertebra, Intractable back pain Patient Disposition: [facility] Time of Disposition Decision: 18:01 Prescriptions / Home Meds: No Action amlodipine 5 mg tablet 5 mg PO DAILY donepezil 5 mg tablet 5 mg PO DAILY duloxetine 20 mg capsule,delayed release(DR/EC) 20 mg PO DAILY lisinopril 40 mg tablet 40 mg PO DAILY rosuvastatin 40 mg tablet 40 mg PO DAILY aspirin [Adult Low Dose Aspirin] 81 mg tablet,delayed release (DR/EC) 81 mg PO DAILY pantoprazole 40 mg tablet,delayed release (DR/EC) 40 mg PO DAILY ferrous sulfate 325 mg (65 mg iron) tablet 325 mg PO DAILY multivitamin [Daily Value] Tablet 1 tab PO DAILY Referrals: RAYRAY JARRETT [Primary Care Provider] - 1 week
--- NOTE | 2023-09-01 12:50 | CT_ITS ---
The [address] [address] Patient Name: ALETA RODRIGUEZ MRN: [id number] date: 1940 Sex: F Assigned Patient Location: ER Current Patient Location: ER Accession/Order Number: [id number] Exam Date: 09/01/2023 15:23 Report Date: 09/01/2023 16:04 At the request of: RENE MOCK Procedure: CT abdomen pelvis w con CT abdomen pelvis w con, 09/01/2023 3:23 PM EST INDICATION: Severe low back pain COMPARISON: CT the abdomen and pelvis 10/24/2016 TECHNIQUE: Axial images of the abdomen and pelvis were obtained after the administration of IV contrast. Multiplanar reformatted images were generated and reviewed as needed. Dose reduction techniques were achieved by using automated exposure control and/or adjustment of mA and/or kV according to patient size and/or use of iterative reconstruction technique. FINDINGS: Subsegmental atelectasis at the lung bases bilaterally. Mild right basilar consolidation. Heavy calcification of the mitral annulus. No effusion. Cholecystectomy with mild intra and extrahepatic ductal dilatation. Fatty replacement within the pancreas. Adrenals grossly unremarkable. Small peripheral wedge shaped perfusion defect within the spleen with trace adjacent perisplenic fluid. Delayed nephrogram within an atrophic right kidney. Heavy calcification with likely clinically significant stenosis at the ostium of the renal arteries bilaterally. Homogeneous left renal nephrogram without hydronephrosis. No urolithiasis. Urinary bladder is collapsed. Atrophic uterus with indistinct endometrial canal. 9 mm left ovarian cyst. Benign-appearing calcification right adnexa. Diffuse atherosclerotic disease throughout the abdomen and pelvis. No aortic aneurysm. Heavy calcification with greater than 60% stenosis within the proximal superior mesenteric artery with flow preserved distally. No bowel obstruction or acute focal inflammation. Large supra umbilical ventral hernia containing nonobstructed small bowel and a portion of the transverse colon. Colonic diverticulosis. No pneumatosis or pneumoperitoneum. No mesenteric or retroperitoneal lymphadenopathy. Diffuse spondylosis with multilevel chronic appearing mild compression deformities throughout visualized portions of the thoracic and lumbar spine. Greater than 25% loss of vertebral body height L5 vertebral body. Fixation hardware within the right femur without findings of hardware failure. No acute fracture. CT/CT abdomen pelvis w con IMPRESSION: 1. Small acute splenic infarct with trace adjacent perisplenic fluid. 2. Extensive calcified atherosclerotic disease throughout the abdomen and pelvis. Although this is not a CTA angiogram of the abdomen and pelvis, there is likely clinically significant stenosis at the ostium of the renal arteries bilaterally and within the proximal superior mesenteric artery. Functional delay and atrophy involving the right kidney likely secondary to severe right renal artery stenosis. This may be further evaluated with CT angiography of the abdomen and pelvis if clinically indicated. 3. Colonic diverticulosis. 4. Extensive spondylosis with multilevel chronic appearing compression deformities involving the thoracic and lumbar spine. 5. Large ventral hernia containing nonobstructed small bowel and a portion of the transverse colon. No inflammation within the hernia sac. 6. Indistinct endometrial canal within an atrophic uterus. This may be further evaluated with transvaginal ultrasound if clinically indicated. Electronically authenticated by: PATRICE DALLAS Date: 09/01/2023 16:04
[2023-09-01] MEDS: 0.9 % SODIUM CHLORIDE 1,000 ML 100 ML IV (13:10)
[2023-09-01] MEDS: MORPHINE SULFATE 2 MG/ML SYRINGE IV ×2 (13:11→16:50)
[2023-09-01 13:18] LABS: Basophils Absolute Auto 0.1 10^3/uL (0.0-0.1); Basophils Percent Auto 0.6 % (0.2-2.0); Eosinophils Absolute Auto 0.1 10^3/uL (0.0-0.7); Eosinophils Percent Auto 0.5 % (0.9-7.0); Hematocrit 44.8 % (36.0-48.0); Hemoglobin 14.4 g/dL (12.0-16.0); Immature Granulocytes Abs Auto 0.04 10^3/uL (0.00-0.03); Immature Granulocytes Pct Auto 0.4 % (0.0-0.5); Lymphocytes Absolute Auto 0.8 10^3/uL (1.2-3.8); Mean Corpuscular HGB Conc 32.1 g/dL (29.9-35.2); Mean Corpuscular Hemoglobin 30.2 pg (26.7-34.0); Mean Corpuscular Volume 93.9 fL (81.0-99.0); Mean Platelet Volume 10.4 fL (9.5-13.5); Monocytes Absolute Auto 0.8 10^3/uL (0.3-0.8); Monocytes Percent Auto 8.6 % (1.7-12.0); Neutrophils Percent Auto 81.9 % (43.0-75.0); Platelet Count 219 10^3/uL (150-450); Red Blood Count 4.77 10^6/uL (4.20-5.40); Red Cell Distribution Width 13.6 % (11.0-15.0); White Blood Count 9.8 10^3/uL (4.0-11.0)
[2023-09-01 13:37] LABS: Lactate/Lactic Acid 1.2 mmol/L (0.4-2.0)
[2023-09-01 13:47] LABS: Alanine Aminotransferase 20 U/L (14-59); Albumin Globulin Ratio 0.7; Albumin Level 3.4 g/dL (3.4-5.0); Alkaline Phosphatase 68 U/L (46-116); Anion Gap 14.9; Aspartate Amino Transferase 20 U/L (15-37); BUN Creatinine Ratio 14.8; Bilirubin Total 0.4 mg/dL (0.2-1.0); Calcium 9.3 mg/dL (8.5-10.1); Carbon Dioxide 27.1 mmol/L (21.0-32.0); Chloride 103 mmol/L (98-107); Estimated GFR (African America 45 (>=60); Estimated GFR (Non-African Ame 38 (>=60); Globulin 4.8 g/dL; Glucose 121 mg/dL (74-106); Sodium 141 mmol/L (136-145); Total Protein 8.2 g/dL (6.4-8.2); Troponin I High Sensitivity 11.1 pg/mL (4.0-51.3)
[2023-09-01 14:55] LABS: Bilirubin Urine NEGATIVE (NEGATIVE); Blood Urine NEGATIVE (NEGATIVE); Clarity Urine CLEAR (CLEAR); Color Urine YELLOW (YELLOW); Glucose Urine UA NEGATIVE (NEGATIVE); Ketones Urine TRACE mg/dL (NEGATIVE); Leukocyte Esterase Urine NEGATIVE (NEGATIVE); Nitrite Urine NEGATIVE (NEGATIVE); Protein Urine 100 mg/dL (NEG/TRACE); Specific Gravity Urine >=1.030 (1.005-1.025); Urobilinogen Urine 0.2 EU/dL (0.2-1.0)
[2023-09-01 14:56] LABS: Urine Microscopic Indicated YES
[2023-09-01 15:11] LABS: Bacteria Urine TRACE #/HPF (NONE SEEN); Cast Seen? NONE SEEN #/LPF (NONE SEEN); Crystals Seen? None Seen #/HPF (None Seen); Mucus Urine NONE SEEN (NONE SEEN); RBC Urine 0-2 #/HPF (0-2); Squamous Epithelial Cell Urine FEW #/LPF (NONE/RARE); Urine Culture Indicated NO; WBC Urine 0-2 #/HPF (NONE SEEN)
[2023-09-01 17:36] LABS: SARS-CoV-2 Ag NEGATIVE (NEGATIVE)
[2023-09-01] MEDS: KETOROLAC TROMETHAMINE 30 MG/ML VIAL IVP (19:15)
[2023-09-01] MEDS: ONDANSETRON 4 MG RAPDIS TABLET SL (19:38)
[2023-09-01] MEDS: OXYCODONE HCL/ACETAMINOPHEN 5MG/325MG 1 TAB PO (19:38)
== END 2023-09-01 20:32 | disposition home or self-care (01) ==
PROVIDERS: Emergency Medicine Emergency Medical Services; Emergency Provider Emergency Medicine; PCP Nurse Practitioner
DX: M48.56XA Collapsed vertebra, not elsewhere classified, lumbar region, initial encounter for fracture (principal); M54.9 Dorsalgia, unspecified; Z79.82 Long term (current) use of aspirin; Z79.899 Other long term (current) drug therapy; I10 Essential (primary) hypertension; E78.5 Hyperlipidemia, unspecified; F03.90 Unspecified dementia, unspecified severity, without behavioral disturbance, psychotic disturbance, mood disturbance, and anxiety; Z95.2 Presence of prosthetic heart valve; Z90.49 Acquired absence of other specified parts of digestive tract; Z90.89 Acquired absence of other organs; Z96.659 Presence of unspecified artificial knee joint; Z20.822 Contact with and (suspected) exposure to COVID-19
CPT/HCPCS: 36415; 74177; 80053; 81001; 83605; 84484; 85025; 87811; 93005; 96374; 96375; 96376; 99285; Q9967

== ENCOUNTER 2024-03-06 08:48 | Outpatient (OUT) | payer MEDICARE, OTHER, SELFPAY ==
[2024-03-06 09:38] LABS: Basophils Absolute Auto 0.1 10^3/uL (0.0-0.1); Basophils Percent Auto 0.6 % (0.2-2.0); Eosinophils Absolute Auto 0.3 10^3/uL (0.0-0.7); Eosinophils Percent Auto 3.5 % (0.9-7.0); Hematocrit 45.5 % (36.0-48.0); Immature Granulocytes Abs Auto 0.01 10^3/uL (0.00-0.03); Immature Granulocytes Pct Auto 0.1 % (0.0-0.5); Lymphocytes Absolute Auto 2.2 10^3/uL (1.2-3.8); Lymphocytes Percent Auto 22.1 % (20.5-60.0); Mean Corpuscular Hemoglobin 30.1 pg (26.7-34.0); Mean Corpuscular Volume 91.2 fL (81.0-99.0); Mean Platelet Volume 10.7 fL (9.5-13.5); Monocytes Absolute Auto 0.6 10^3/uL (0.3-0.8); Monocytes Percent Auto 5.9 % (1.7-12.0); Neutrophils Absolute Auto 6.6 10^3/uL (1.4-6.5); Neutrophils Percent Auto 67.8 % (43.0-75.0); Platelet Count 241 10^3/uL (150-450); Red Blood Count 4.99 10^6/uL (4.20-5.40); Red Cell Distribution Width 12.8 % (11.0-15.0); White Blood Count 9.8 10^3/uL (4.0-11.0)
[2024-03-06 09:57] LABS: Estimated Average Glucose 126 mg/dL
[2024-03-06 10:26] LABS: Alanine Aminotransferase 22 U/L (14-59); Albumin Globulin Ratio 0.8; Albumin Level 3.6 g/dL (3.4-5.0); Alkaline Phosphatase 74 U/L (46-116); Anion Gap 15.5; Aspartate Amino Transferase 22 U/L (15-37); BUN Creatinine Ratio 13.4; Bilirubin Total 0.6 mg/dL (0.2-1.0); Calcium 9.5 mg/dL (8.5-10.1); Carbon Dioxide 25.7 mmol/L (21.0-32.0); Chloride 102 mmol/L (98-107); Chol HDL Ratio 3.2; Cholesterol 164 mg/dL (<=200); Estimated GFR (African America 49 (>=60); Estimated GFR (Non-African Ame 40 (>=60); Globulin 4.4 g/dL; Glucose 105 mg/dL (74-106); HDL Cholesterol 52 mg/dL (40-60); Potassium 4.2 mmol/L (3.5-5.1); Sodium 139 mmol/L (136-145); Triglycerides 177 mg/dL (<=150); VLDL CHOLESTEROL 35.4 mg/dL
== END 2024-03-06 08:49 | disposition home or self-care (01) ==
LOC: LAB 08:49
PROVIDERS: PCP Nurse Practitioner; Visit Provider Nurse Practitioner
DX: E78.2 Mixed hyperlipidemia (principal); I10 Essential (primary) hypertension; E11.22 Type 2 diabetes mellitus with diabetic chronic kidney disease; N18.32 Chronic kidney disease, stage 3b; K21.9 Gastro-esophageal reflux disease without esophagitis; I70.1 Atherosclerosis of renal artery
CPT/HCPCS: 36415; 80053; 80061; 82043; 82570; 83036; 83540; 85025

== ENCOUNTER 2024-03-07 11:32 | Outpatient (REF) | payer MEDICARE, OTHER, SELFPAY ==
[2024-03-07 12:34] LABS: Creatinine Urine Random 42.76 mg/dL (20.00-300.00); Microalbumin Urine Random <1.3 mg/dL (<=30.0)
[2024-03-07 12:47] LABS: Bilirubin Urine NEGATIVE (NEGATIVE); Blood Urine NEGATIVE (NEGATIVE); Clarity Urine CLEAR (CLEAR); Color Urine LT. YELLOW (YELLOW); Glucose Urine UA NEGATIVE (NEGATIVE); Ketones Urine NEGATIVE (NEGATIVE); Leukocyte Esterase Urine NEGATIVE (NEGATIVE); Nitrite Urine NEGATIVE (NEGATIVE); Protein Urine NEGATIVE (NEG/TRACE); Specific Gravity Urine 1.015 (1.005-1.025); Urobilinogen Urine 0.2 EU/dL (0.2-1.0); pH Urine 5.5 (5.0-9.0)
[2024-03-07 12:50] LABS: Urine Microscopic Indicated NO
== END 2024-03-07 11:33 | disposition home or self-care (01) ==
LOC: LAB 11:32
PROVIDERS: PCP Nurse Practitioner; Visit Provider Nurse Practitioner
DX: E78.2 Mixed hyperlipidemia (principal); E11.22 Type 2 diabetes mellitus with diabetic chronic kidney disease; N18.32 Chronic kidney disease, stage 3b; K21.9 Gastro-esophageal reflux disease without esophagitis; I70.1 Atherosclerosis of renal artery; I12.9 Hypertensive chronic kidney disease with stage 1 through stage 4 chronic kidney disease, or unspecified chronic kidney disease
CPT/HCPCS: 81003; 82043; 82570

== ENCOUNTER 2024-08-22 15:16 | Outpatient (OUT) | payer MEDICARE, OTHER, SELFPAY ==
--- NOTE | 2024-08-22 | XR_ITS ---
The [address] [address] Patient Name: ALETA RODRIGUEZ MRN: [id number] date: 1940 Sex: F Assigned Patient Location: [facility] Current Patient Location: Accession/Order Number: [id number] Exam Date: 08/23/2024 10:58 Report Date: 08/23/2024 11:27 At the request of: CHARISMA AIKEN NP Procedure: XR thoracic spine 3V THORACIC SPINE - - 3 views CLINICAL HISTORY: Fall 2 weeks ago. Mid back pain for 2 weeks. COMPARISON: Chest 12/27/2022 FINDINGS: Multiple compression deformities involving the thoracic spine with gross demineralization similar to the prior study. Scattered endplate degenerative changes. Pedicles appear grossly intact. Cement augmentation is present involving the thoracolumbar junction. XR/XR thoracic spine 3V IMPRESSION: COMPRESSION DEFORMITIES INVOLVING THE THORACIC SPINE SIMILAR TO THE PRIOR STUDY FROM 12/27/2022. IF FURTHER EVALUATION IS NEEDED GIVEN THE HISTORY, MRI IS SUGGESTED. Impression dictated by: Jasen Gan Jr., D.O.08/23/2024 11:27 AM Dictation Location: [employer] Electronically authenticated by: [id number] Y Date: 08/23/2024 11:27
== END 2024-08-22 15:17 | disposition home or self-care (01) ==
LOC: RAD 15:17
PROVIDERS: PCP Nurse Practitioner; Visit Provider Nurse Practitioner
DX: M80.00XA Age-related osteoporosis with current pathological fracture, unspecified site, initial encounter for fracture (principal); M54.6 Pain in thoracic spine
CPT/HCPCS: 72072

== ENCOUNTER 2024-09-10 07:38 | Outpatient (RCR) | payer MEDICARE, OTHER, SELFPAY ==
[2024-09-10 07:44] VITALS: BP 127/84; PULSE 80; TEMP 36; O2SAT 93
[2024-09-10 07:46] LABS: Anion Gap 15.1; BUN Creatinine Ratio 9.3; Calcium 9.5 mg/dL (8.5-10.1); Carbon Dioxide 28.6 mmol/L (21.0-32.0); Chloride 103 mmol/L (98-107); Estimated GFR (African America 40 (>=60 mL/min/1.73m^2); Estimated GFR (Non-African Ame 33 (>=60 mL/min/1.73m^2); Glucose 113 mg/dL (74-106); Potassium 4.7 mmol/L (3.5-5.1); Sodium 142 mmol/L (136-145)
[2024-09-10] MEDS: DENOSUMAB 60 MG/ML SYRINGE SUBQ (08:15)
== END 2024-09-24 10:31 | disposition home or self-care (01) ==
LOC: LAB 07:38
PROVIDERS: PCP Nurse Practitioner; Visit Provider Nurse Practitioner
DX: Z51.81 Encounter for therapeutic drug level monitoring (principal); Z79.01 Long term (current) use of anticoagulants; M80.00XA Age-related osteoporosis with current pathological fracture, unspecified site, initial encounter for fracture
CPT/HCPCS: 36415; 80048; 96372; J0897

== ENCOUNTER 2025-02-04 07:44 | Outpatient (OUT) | payer MEDICARE, OTHER, SELFPAY ==
--- OUTSIDE RECORDS SUMMARY | 2025-01-29 09:20 | XMS_ITS | Encounter Summary ---
Author Organization [facility] Address [address] [place] [address] Care Team Providers Care Php Consultant Name Role Phone Kaur Rosas NP Unavailable [phone] Thony Escalante MD Primary Care Provider [phone] Thony Escalante MD Unavailable Reason for Visit * Reason Comments Diabetes Encounter Details Date Type Department Care Team (Late st Contact Info) Description 01/29/2025 9:20 AM EDT Office Visit [facility] [address] [place] [address] Kaur Rosas NP [address] [place] [id number] Type 2 diabetes mellitus with stage 3a chronic kidney disease, without long-term current use of insulin (HCC) (Primary Dx); Dementia, unspecified dementia severity, unspecified dementia type, unspecified whether behavioral, psychotic, or mood disturbance or anxiety (HCC); Essential (primary) hypertension ; Gastroesophageal reflux disease without esophagitis; Chronic kidney disease, stage 3b ([facility]); Essential hypertension ; Coronary artery disease involving [place] coronary artery of [place] heart, unspecified whether angina present ; Mixed hyperlipidemia ; Morbid (severe) obesity due to excess calories ([facility]) Social History Tobacco Use Types Packs/Day Years Used Date Smoking Tobacco: Never Smokeless Tobacco: Never Alcohol Use Standard Drinks/Week Comments Never 0 (1 standard drink = 0.6 oz pur e alcohol) coffee: 1-2 cups daily Humiliation, Afraid, Rape, and Kick questionnair e Answer Date Recorded Within the last year, have y ou been afraid of your partner or ex-partner? No 10/26/2023 Within the last year, have y ou been humiliated or emotionally abused in other ways by your partner or ex-partner? No Within the last year, have y ou been kicked, hit, slapped, or otherwise physically hurt by your partner or ex-partner? No 10/26/2023 Within the last year, have y ou been raped or forced to have any kind of sexual activity by your partner or ex-partner? No 10/26/2023 Social Connection and Isolat ion Panel [NHANES] Answer Date Recorded In a typical week, how many times do you talk on the phone with family, friends, or neighbors? More than three times a week 10/26/2023 How often do you get togethe r with friends or relatives? More than three times a week 10/26/2023 How often do you attend [facility] or latter-day services? More than 4 times per year 10/26/2023 Do you belong to any clubs o r organizations such as catholic groups, unions, fraternal or athletic groups, or school groups? Yes 10/26/2023 How often do you attend meet ings of the clubs or organizations you belong to? Never 10/26/2023 Are you , , di vorced, , never , or living with a partner? 10/26/2023 AUDIT-C Answer Date Recorded Q1: How often do you have a drink containing alcohol? Never 10/26/2023 Q2: How many drinks containi ng alcohol do you have on a typical day when you are drinking? Patient does not drink Q3: How often do you have si x or more drinks on one occasion? Never 10/26/2023 Overall Financial Resource Strain (CARDIA) Answe r Date Recorded How hard is it for you to pa y for the very basics like food, housing, medical care, and heating? Not hard at all 10/26/2023 PHQ-2 Answer Date Recorded Patient Health Questionnaire-2 Score 0 10/30/2024 [facility] - Occupational Stress Questionnaire Answer Date Recorded Do you feel stress - tense, restless, nervous, or anxious, or unable to sleep at night because your mind is troubled all the time - these days? Not at all 10/26/2023 Exercise Vital Sign Answer Date Recorde d On average, how many days pe r week do you engage in moderate to strenuous exercise (like a brisk walk)? 7 days 10/26/2023 On average, how many minutes do you engage in exercise at this level? 90 min 10/26/2023 Hunger Vital Sign Answer Date Recorded Within the past 12 months, y ou worried that your food would run out before you got the money to buy more. Never true 10/26/19 Within the past 12 months, t he food you bought just didn't last and you didn't have money to get more. Never true 10/26/2023 PRAPARE - Transportation Answer Date Re corded In the past 12 months, has l ack of transportation kept you from medical appointments or from getting medications? No 10/03 In the past 12 months, has l ack of transportation kept you from meetings, work, or from getting things needed for daily living? No 10/26/2023 Housing Stability Vital Sign Answer Rodrick e Recorded In the last 12 months, was t here a time when you were not able to pay the mortgage or rent on time? No 10/26/2023 In the last 12 months, how many places have you lived? 1 10/26/2023 In the last 12 months, was t here a time when you did not have a steady place to sleep or slept in a fdc (including now)? No 10/26/2023 Comments Unknown Sex and Gender Information Value Date Recorded Sex Assigned at Not on file Legal Sex Female 6:51 PM EDT Gender Identity Not on file Sexual Orientation Not on file documented as of this encounter Last Filed Vital Signs Vital Sign Reading Time Taken Comments Blood Pressure 126/80 01/29/2025 9:23 AM EDT Pulse 80 01/29/2025 9:23 AM EDT Temperature 36.6 C (97.8 F) 01/29/2025 9:23 AM EDT Respiratory Rate 18 01/29/2025 9:23 AM EDT Oxygen Saturation 90% 01/29/2025 9:23 AM EDT Inhaled Oxygen Concentration - - Weight 82.8 kg (182 lb 9.6 oz) 01/29/2025 9:23 A M EDT Height - - Body Mass Index 34.5 06/05/2024 9:22 AM EST documented in this encounter Patient Instructions * Patient Instructions* Kaur Rossa NP - 01/29/2025 9:20 AM EDT Get labs checked documented in this encounter Progress Notes * Kaur Rosas NP - 01/29/2025 10:22 AM EDTAssociated Problem(s): Morbid (severe) obesity due to excess calories ([facility]) Discussed with patient their BMI (actual, verses recommended). We have also discussed lifestyle modifications: attempts to perform physical activity as chronic conditions allow, also to monitor dietary intake: increasing protein/fruits/veggies and lowering carb intake (unless contraindicated). Limit sodas, juices, and sugary drinks. Her weight has come down about 15 pounds since 06/26 Less appetite, bowel movement about 1-2 times per week no abd pain, no bloody stools Does not feel at this time needs work up after discussion with daughter and pt * Kaur Rosas NP - 01/29/2025 10:20 AM EDTAssociated Problem(s): Coronary artery disease involving [place] coronary artery of [place] heart Follows with cardiology * Kaur Rosas NP - 01/29/2025 9:20 AM EDT Images from the original note were not included. Maria Esther Bee is a 84 y.o. female presents with chief complaint of Diabetes HPI: No pain related symptoms today Pt finally got her wheel chair Daughter does report getting more unsteady on feet, she is having trouble getting in and out of shower shower chair Is wondering about possibly getting transfer shower bench Dementia: eating less, weight is stable, Hypertension This is a chronic problem. The current episode started more than 1 year ago. The problem is unchanged. The problem is controlled. Pertinent negatives include no chest pain, headaches, orthopnea, palpitations, peripheral edema or shortness of breath. There are no associated agents to hypertension. Risk factors for coronary artery disease include obesity, sedentary lifestyle and post-menopausal state. Past treatments include calcium channel blockers. The current treatment provides significant improvement. There are no compliance problems. There is no history of CAD/VT, heart failure or PVD. SUBJECTIVE: MEDICATIONS: Current Outpatient Medications Medication Instructions amLODIPine (NORVASC) 5 mg, Oral, Daily aspirin 81 mg, Daily donepezil (ARICEPT) 5 mg, Oral, Nightly rosuvastatin (CRESTOR) 40 mg, Oral, Nightly zoledronic acid (RECLAST) 5 mg, Once ALLERGIES: No Known Allergies REVIEW OF SYMPTOMS: Review of Systems Constitutional: Negative for appetite change, chills and fever. HENT: Negative for congestion, ear pain and sore throat. Eyes: Negative for pain, discharge, redness and visual disturbance. Respiratory: Negative for cough, shortness of breath and wheezing. Cardiovascular: Negative for chest pain, palpitations, orthopnea and leg swelling. Gastrointestinal: Negative for abdominal pain, blood in stool, constipation, diarrhea, nausea and vomiting. Genitourinary: Negative for difficulty urinating, dysuria and frequency. Musculoskeletal: Negative for arthralgias, back pain, joint swelling and myalgias. Skin: Negative for rash and wound. Neurological: Positive for weakness. Negative for dizziness, tremors, seizures, syncope and headaches. Memory impairment Psychiatric/Behavioral: Negative for behavioral problems, self-injury and suicidal ideas. The patient is not nervous/anxious. Hematological: Does not bruise/bleed easily. Endocrine: Negative for polydipsia, polyphagia and polyuria. Allergic/Immunologic: Negative for environmental allergies and food allergies. PAST MEDICAL HISTORY Past Medical History: Diagnosis Date Aortic valve stenosis Diverticulosis Hypercholesterolemia Low serum iron Osteoarthritis Osteoporosis Past Surgical History: Procedure Laterality Date ADENOIDECTOMY AORTIC VALVE REPLACEMENT 2013 APPENDECTOMY COLONOSCOPY 07/2008 CT ANGIOGRAM ABDOMEN PELVIS 08/16/2013 CT ANGIOGRAM ABDOMEN PELVIS 08/16/2013 OTHER SURGICAL HISTORY closed reduction arm OTHER SURGICAL HISTORY 2016 open choley PARTIAL HIP ARTHROPLASTY 01/2016 TONSILLECTOMY VENTRAL HERNIA REPAIR 2017 family history includes Heart disease in her father. OBJECTIVE: Visit Vitals BP 126/80 (BP Location: Left arm, Patient Position: Sitting, BP Cuff Size: Adult long) Pulse 80 Temp 97.8 ??F (Temporal) Resp 18 Wt 182 lb 9.6 oz SpO2 90% BMI 34.50 kg/m?? Smoking Status Never BSA 1.89 m?? Physical Exam Vitals and nursing note reviewed. Constitutional: General: She is not in acute distress. Appearance: Normal appearance. She is obese. She is not ill-appearing. HENT: Head: Normocephalic and atraumatic. Right Ear: External ear normal. Left Ear: External ear normal. Nose: Nose normal. Mouth/Throat: Mouth: Mucous membranes are moist. Eyes: Extraocular Movements: Extraocular movements intact. Conjunctiva/sclera: Conjunctivae normal. Neck: Vascular: No carotid bruit. Cardiovascular: Rate and Rhythm: Normal rate and regular rhythm. Pulses: Normal pulses. Heart sounds: Murmur heard. Pulmonary: Effort: Pulmonary effort is normal. Breath sounds: Normal breath sounds. No wheezing or rhonchi. Abdominal: General: Bowel sounds are normal. There is no distension. Palpations: Abdomen is soft. There is no mass. Tenderness: There is no abdominal tenderness. Hernia: A hernia is present. Musculoskeletal: General: Normal range of motion. Cervical back: Normal range of motion and neck supple. Right lower leg: Edema present. Left lower leg: Edema present. Comments: Trace bilat pedal Lymphadenopathy: Cervical: Cervical adenopathy present. Skin: General: Skin is warm and dry. Capillary Refill: Capillary refill takes 2 to 3 seconds. Findings: No rash. Neurological: General: No focal deficit present. Mental Status: She is alert and oriented to person, place, and time. Psychiatric: Mood and Affect: Mood normal. Behavior: Behavior normal. Thought Content: Thought content normal. Judgment: Judgment normal. ASSESSMENT AND PLAN: No follow-ups on file. Problem List Items Addressed This Visit Morbid (severe) obesity due to excess calories ([facility]) Discussed with patient their BMI (actual, verses recommended). We have also discussed lifestyle modifications: attempts to perform physical activity as chronic conditions allow, also to monitor dietary intake: increasing protein/fruits/veggies and lowering carb intake (unless contraindicated). Limit sodas, juices, and sugary drinks. Her weight has come down about 15 pounds since 06/26 Less appetite, bowel movement about 1-2 times per week no abd pain, no bloody stools Does not feel at this time needs work up after discussion with daughter and pt Mixed hyperlipidemia Relevant Medications rosuvastatin (Crestor) 40 MG tablet Essential (primary) hypertension Please check blood pressure daily and record DASH diet Limit caffeine Take medication as directed Contact office if chest pain, pressure, dizziness, shortness of breath, swelling legs Recommend slow position changes On amlodipine Relevant Medications amLODIPine (Norvasc) 5 MG tablet aspirin 81 MG EC tablet Other Relevant Orders Comprehensive metabolic panel Urinalysis with reflex microscopic (clean catch) Microalbumin / creatinine, urine ratio Dementia (HCC) - Primary Lives in own home, daughter stays with her Has her do exercises for mind Does play [employer] weekly, does well with this Does have difficulty with recall things at times Daughter does all of her care Does have home health aid/nurse once a week [employer] Taking aricept Relevant Medications donepezil (Aricept) 5 MG tablet Other Relevant Orders Comprehensive metabolic panel TSH Vitamin B12 Coronary artery disease involving [place] coronary artery of [place] heart Follows with cardiology Relevant Medications rosuvastatin (Crestor) 40 MG tablet Gastroesophageal reflux disease without esophagitis Recommendations: freq small meals, nothing to eat or drink at least 2 hours prior to bed, limit caffeine, alcohol, as well as spicy foods Meds to limit or avoid if possible: NSAIDS Elevate HOB if possible Continue PPI therapy Relevant Orders CBC and differential Comprehensive metabolic panel Chronic kidney disease, stage 3b (CMS-HCC) Relevant Orders Iron + transferrin + TIBC Ferritin Vitamin D 25 hydroxy Type 2 diabetes mellitus with diabetic chronic kidney disease (HCC) Monitor for s/s of hypoglycemia (sweaty, dizziness, nausea, vomiting, or shakiness). Watch for increase in thirst, urination, or appetite. Inspect feet frequently monitoring for open wounds , and also recommend yearly eye exam. Pt should attempt to remain as physically active as chronic conditions allow, as well as trying to follow a diet low in carbohydrates, and simple sugars. No current diabetes meds, does take statin and asa A1c: 6.3% 01/29/25 6% on 03/27 Relevant Orders Comprehensive metabolic panel Lipid panel Urinalysis with reflex microscopic (clean catch) Microalbumin / creatinine, urine ratio POCT glycosylated hemoglobin (Hb A1C) docked device (Completed) Other Visit Diagnoses Essential hypertension Relevant Medications amLODIPine (Norvasc) 5 MG tablet * Kaur Rosas NP - 01/29/2025 6:24 AM EDTAssociated Problem(s): Type 2 diabetes mellitus with diabetic chronic kidney disease (HCC) Monitor for s/s of hypoglycemia (sweaty, dizziness, nausea, vomiting, or shakiness). Watch for increase in thirst, urination, or appetite. Inspect feet frequently monitoring for open wounds , and also recommend yearly eye exam. Pt should attempt to remain as physically active as chronic conditions allow, as well as trying to follow a diet low in carbohydrates, and simple sugars. No current diabetes meds, does take statin and asa A1c: 6.3% 01/29/25 6% on 03/27 * Kaur Rosas NP - 01/29/2025 6:23 AM EDTAssociated Problem(s): Gastroesophageal reflux disease without esophagitis Recommendations: freq small meals, nothing to eat or drink at least 2 hours prior to bed, limit caffeine, alcohol, as well as spicy foods Meds to limit or avoid if possible: NSAIDS Elevate HOB if possible Continue PPI therapy * Kaur Rosas NP - 01/29/2025 6:23 AM EDTAssociated Problem(s): Essential (primary) hypertension Please check blood pressure daily and record DASH diet Limit caffeine Take medication as directed Contact office if chest pain, pressure, dizziness, shortness of breath, swelling legs Recommend slow position changes On amlodipine * Kaur Rosas NP - 01/29/2025 6:23 AM EDTAssociated Problem(s): Dementia (HCC) Lives in own home, daughter stays with her Has her do exercises for mind Does play euchre weekly, does well with this Does have difficulty with recall things at times Daughter does all of her care Does have home health aid/nurse once a week [employer] Taking aricept documented in this encounter Plan of Treatment Upcoming Encounters Date Type Department Care Team (Late st Contact Info) Description 04/30/2025 9:00 AM EDT Office Visit [facility] [address] [place] [address] Kaur Rosas NP [address] [place] [address] Scheduled Orders Name Type Priority Associated Diagnoses Orde r Schedule CBC and differential Lab Routine Gastroesophageal reflux disease without esophagitis Expected: 01/29/2025 (Approximate), Expires: 01/29/2026 Comprehensive metabolic panel Lab Routine Dementia, unspecified dementia severity, unspecified dementia type, unspecified whether behavioral, psychotic, or mood disturbance or anxiety (HCC) Essential (primary) hypertension Gastroesophageal reflux disease without esophagitis Type 2 diabetes mellitus with stage 3a chronic kidney disease, without long-term current use of insulin (HCC) Expected: 01/29/2025 (Approximate), Expires: 01/29/2026 Lipid panel Lab Routine Type 2 diabetes mellitus with stage 3a chronic kidney disease, without long-term current use of insulin (HCC) Expected: 01/29/2025 (Approximate), Expires: 01/29/2026 Urinalysis with reflex microscopic (clean catch) Lab Routine Essential (primary) hypertension Type 2 diabetes mellitus with stage 3a chronic kidney disease, without long-term current use of insulin (HCC) Expected: 01/29/2025 (Approximate), Expires: 01/29/2026 Microalbumin / creatinine, urine ratio Lab Routine Essential (primary) hypertension Type 2 diabetes mellitus with stage 3a chronic kidney disease, without long-term current use of insulin (HCC) Expected: 01/29/2025 (Approximate), Expires: 01/29/2026 TSH Lab Routine Dementia, unspecified dementia severity, unspecified dementia type, unspecified whether behavioral, psychotic, or mood disturbance or anxiety (HCC) Expected: 01/29/2025 (Approximate), Expires: 01/29/2026 Iron + transferrin + TIBC Lab Routine Chronic kidney disease, stage 3b (CMS-HCC) Expected: 01/29/2025 (Approximate), Expires: 01/29/2026 Ferritin Lab Routine Chronic kidney disease, stage 3b (CMS-HCC) Expected: 01/29/2025 (Approximate), Expires: 01/29/2026 Vitamin B12 Lab Routine Dementia, unspecified dementia severity, unspecified dementia type, unspecified whether behavioral, psychotic, or mood disturbance or anxiety (HCC) Expected: 01/29/2025 (Approximate), Expires: 01/29/2026 Vitamin D 25 hydroxy Lab Routine Chronic kidney disease, stage 3b ([facility]) Expected: 01/29/2025 (Approximate), Expires: 01/29/2026 documented as of this encounter Procedures Procedure Name Priority Date/Time Associated Diagnosis Comments POCT GLYCOSYLATED HEMOGLOBIN (HGB A1C) Routine 01/29/2025 9:37 AM EDT Type 2 diabetes mellitus with stage 3a chronic kidney disease, without long-term current use of insulin (HCC) documented in this encounter Results * (ABNORMAL) POCT glycosylated hemoglobin (Hb A1C) docked device (01/29/2025 9:37 AM EDT) Hemoglobin A1C 6.2 Blood Venous blood specimen / Unknown 01/29/2025 9:37 AM EDT us Kaur Rosas NP POINT OF CARE TEST ENTER/EDIT O RDERABLES Final Result documented in this encounter Visit Diagnoses Diagnosis Type 2 diabetes mellitus with stage 3a chronic kidney disease, without long-term current use of insulin (HCC)- Primary Dementia, unspecified dementia severity, unspecified dementia type, unspecified whether behavioral, psychotic, or mood disturbance or anxiety (HCC) Essential (primary) hypertension Unspecified essential hypertension Gastroesophageal reflux disease without esophagitis Esophageal reflux Chronic kidney disease, stage 3b ([facility]) Essential hypertension Unspecified essential hypertension Coronary artery disease involving [place] coronary artery of [place] heart, unspecified whether angina present Mixed hyperlipidemia Mixed hyperlipidemia Morbid (severe) obesity due to excess calories ([facility]) documented in this encounter Additional Health Concerns Assessment Noted Time PHQ-9 Depression Total Score: 1 10/31/19 25 10:20 AM EDT documented as of this encounter Care Teams Php Consultant Relationship Specialty Start Date End Date Thony Escalante MD [address] [place] [phone] PCP - General Family Medicine 09/01/23 Kaur Rosas NP [address] [place] [id number] Nurse Practitioner Family Medicine 05/09/23 Thony Escalante MD [address] [place] [phone] Referring Physician Family Medicine 09/01/23 documented as of this encounter
--- OUTSIDE RECORDS SUMMARY | 2025-02-04 07:50 | XMS_ITS | Encounter Summary ---
Author Organization [employer] [facility] tem Address [id number] [address] [place] [address] Care Team Providers Care Inclusion Internship Name Role Phone GustavoKaur rojo Franco FRANCO-LINUX KERNEL ENGINEER Primary Care Provider Encounter Details Date Type Department Care Team (Late st Contact Info) Description 05/10/2022 [facility]phone [facility] [address] [place] [phone] Tierney Borrego CMA Social History Tobacco Use Types Packs/Day Years Used Date Smoking Tobacco: Never Smokeless Tobacco: Never Alcohol Use Standard Drinks/Week Comments Yes 3 (1 standard drink = 0.6 oz pur e alcohol) DRINKS DAILY Childcare Answer Date Recorded Childcare Unknown 12/13/2018 Employment Answer Date Recorded Employment Unknown 12/13/2018 Purpose - Life Answer Date Recorded Purpose and direction in life Unknown Comments Unknown Sex and Gender Information Value Date Recorded Sex Assigned at Not on file Legal Sex Female 11:31 AM EDT Gender Identity Not on file Sexual Orientation Not on file documented as of this encounter Miscellaneous Notes * Telephone Encounter - Tierney Borrego CMA - 05/10/2022 11:12 AM EST Her daughter Breanna called and said she needs an order for a Handycap Placard because since she is not able to drive any more she lost her handicap license plates. She is almost done with her counseling and wants to know if you can refill her generic Symbalta now? She also wants to know if you could give her a referral for a Home Health Aid to help her twice a week with showers and getting things done around the house? * Telephone Encounter - YOSELIN Fernando - 05/10/2022 11:12 AM EST I refilled the cymbalta, the handicap placcard she can merchandise pickup/receiving associate however I cannot do anything about ordering home health without a face to face visit * Telephone Encounter - Tierney Borrego CMA - 05/10/2022 11:12 AM EST I spoke with her daughter and she understands everything. Her mom has an appointment on 06/09 and she wants to know if you would send an order for her blood work to the lab across the street like you did the last time and she will take her there the first week of Jun to have it done. documented in this encounter Plan of Treatment Not on file documented as of this encounter Visit Diagnoses Not on filedocumented in this encounter Care Teams Inclusion Internship Relationship Specialty Start Date End Date Kaur Rosas APRN-LUIS PCP - General Nurse Practitioner 05/05/23 documented as of this encounter
--- OUTSIDE RECORDS SUMMARY | 2025-02-04 07:50 | XMS_ITS | Encounter Summary ---
Author Organization [facility] Address [address] [place] [address] Care Team Providers Care Rat Culturist Name Role Phone Kaur Rosas BATTERYMAN Unavailable [phone] Thony Escalante MD Primary Care Provider [phone] Thony Escalante MD Unavailable Chanda Orozco RN Unavailable [phone] Encounter Details Date Type Department Care Team (Late st Contact Info) Description 03/12/2024 Orders Only [facility] [address] [place] [phone] Destiney Paula MD Social History Tobacco Use Types Packs/Day Years [...] week 10/26/2023 How often do you attend chur ch or restorationist services? More than 4 times per year 10/26/2023 Do you belong to any clubs o r organizations such as amish groups, unions, fraternal or athletic groups, or [...] Date Recorded Patient Health Questionnaire-2 Score 0 09/20/2023 [facility] - Occupational Stress Questionnaire Answer Date Recorded [...] place to sleep or slept in a group home (including now)? No 10/26/2023 Comments Unknown Sex and Gender Information Value Date Recorded Sex Assigned at Not on file Legal Sex Female 6:51 PM EDT Gender Identity Not on file Sexual Orientation Not on file documented as of this encounter Plan of Treatment Upcoming Encounters Date Type Department Care Team (Late st Contact Info) Description 04/30/2025 9:00 AM EDT Office [facility] [address] [place] [address] Kaur Rosas NP [address] [place] [address] documented as of this encounter Procedures Procedure Name Priority Date/Time Associated Diagnosis Comments SCANNED LABS Routine 03/12/2024 1:14 PM EDT documented in this encounter Results * SCANNED LABS (03/12/2024 1:14 PM EDT) Destiney Paula MD LAB CHG PERFORMABLES Final Resul t documented in this encounter Visit Diagnoses Not on filedocumented in this encounter Additional Health Concerns Assessment Noted Time PHQ-9 Depression Total Score: 0 10/26/19 10:14 AM EDT documented as of this encounter Care Teams Rat Culturist Relationship Specialty Start Date End Date Thony Escalante MD [address] [place] [phone] PCP - General Family Medicine 09/01/23 Kaur Rosas NP [address] [place] [phone] Nurse Practitioner Family Medicine 05/09/23 Thony Escalante MD [address] [place] [address] Referring Physician Family Medicine 09/01/23 Chanda Orozco, RN [address] [place] [address] Registered Nurse Family Medicine 02/29/24 03/15/24 documented as of this encounter
--- OUTSIDE RECORDS SUMMARY | 2025-02-04 07:50 | XMS_ITS | Encounter Summary ---
Author Organization [facility] [employer] tem Address [id number] [address] [place] [address] Care Team Providers Care Floatman Name Role Phone Kaur Rosas JOB SPOTTER-GEAR CUTTER Primary Care Provider Reason for Visit * Reason Onset Date Comments Med Refill 04/07/2022 Encounter Details Date Type Department Care Team (Late st Contact Info) Description 04/07/2022 Refill [facility] Internal Medicine - Family Medicine [address] [place] [address] Tierney Borrego CMA Social History Tobacco Use [...] on file Sexual Orientation Not on file COVID-19 Exposure Response Date Recorded In the last month, have you been in contact with someone who was confirmed or suspected to have Coronavirus / COVID-19? No / Unsure 03/10/2022 1:21 PM EDT documented as of this encounter Miscellaneous Notes * Telephone Encounter - Tierney Borrego CMA - 04/07/2022 8:18 AM EDT The patients daughter called and she needs these four prescriptions mailed to [facility] documented in this encounter Plan of Treatment Not on file documented as of this encounter Visit Diagnoses Not on filedocumented in this encounter Care Teams Floatman Relationship Specialty Start Date End Date Kaur Rosas APRN-GEAR CUTTER PCP - General Nurse Practitioner 05/05/23 documented as of this encounter
--- OUTSIDE RECORDS SUMMARY | 2025-02-04 07:50 | XMS_ITS | Encounter Summary ---
Author Organization [facility] tem Address [id number] [address] [place] [address] Care Team Providers Care Coin Purse Framer Name Role Phone GustavoKaur rojo Franco FRANCO-GRAIN OILSEED OR PASTURE FARM WORKER Primary Care Provider Encounter Details Date Type Department Care Team (Late st Contact Info) Description 07/13/2022 Telephone [facility] Internal Medicine - Family Medicine [address] [place] [address] Katia Rene MA Social History Tobacco Use Types Packs/Day Years [...] encounter Miscellaneous Notes * Telephone Encounter - Katia Rene MA - 07/13/2022 11:32 AM EST Patient's daughter called and said since her BP pill dose was lowered, her BP is running 90/50. Shesaid the therapist that is has been seeing her is concerned that it is too low. What would you recommend? * Telephone Encounter - Preet Gonzalez DO - 07/13/2022 11:32 AM EST He does have her stop her amlodipine and set up a follow-up appointment in the next week or 2 * Telephone Encounter - Katia Rene MA - 07/13/2022 11:32 AM EST Just want to double check that I understand so I can pass it on correctly..... you want her to stopthe Amlodipine? * Telephone Encounter - Preet Gonzalez DO - 07/13/2022 11:32 AM EST Yes-stop amlodipine 2.5mg. It wasn't clear with the dictation-sorry * Telephone Encounter - Katia Rene MA - 07/13/2022 11:32 AM EST Patient's daughter, Bryanna, notified and understands. She will call back to schedule. documented in this encounter Plan of Treatment Not on file documented as of this encounter Visit Diagnoses Not on filedocumented in this encounter Care Teams Coin Purse Framer Relationship Specialty Start Date End Date Kaur Rosas, USED CAR RENOVATOR-GRAIN OILSEED OR PASTURE FARM WORKER PCP - General Nurse Practitioner 05/05/23 documented as of this encounter
--- OUTSIDE RECORDS SUMMARY | 2025-02-04 07:50 | XMS_ITS | Encounter Summary ---
[facility] Address [id number] [address] [place] [address] Care Team Providers Care Volunteer Manager Name Role Phone GustavoKaur rojo Franco FRANCO-RESIDENT ASSISTANT Primary Care Provider Encounter Details Date Type Department Care Team (Late st Contact Info) Description 06/21/2022 Telephone [facility] Internal Medicine - Family Medicine [address] [place] [phone] Katia Rene MA Social History Tobacco Use [...] have Coronavirus / COVID-19? No / Unsure 06/09/2022 9:26 AM EST documented as of this encounter Miscellaneous Notes * Telephone Encounter - Katia Rene MA - 06/21/2022 12:14 PM EST Collette [facility] OT called and said she did her eval Tuesday and needs the verbal ok to initiate treatement. * Telephone Encounter - Preet Gonzalez DO - 06/21/2022 12:14 PM EST Okay to start treatment * Telephone Encounter - Katia Rene MA - 06/21/2022 12:14 PM EST Left on voicemail. documented in this encounter Plan of Treatment Not on file documented as of this encounter Visit Diagnoses Not on filedocumented in this encounter Care Teams Volunteer Manager Relationship Specialty Start Date End Date Kaur Rosas APRN-RESIDENT ASSISTANT PCP - General Nurse Practitioner 05/05/23 documented as of this encounter
--- OUTSIDE RECORDS SUMMARY | 2025-02-04 07:51 | XMS_ITS | Clinical Summary ---
Author Organization [facility] Address [address] [place] [address] Care Team Providers Care Sausage Grinder Name Role Phone Kaur Rosas APPAREL MERCHANDISER Unavailable [phone] Thony Escalante MD Primary Care Provider [phone] Thony Escalante MD Unavailable Allergies No known active allergies Medications zoledronic acid (Reclast) 5 MG/100ML solution Infuse 5 mg into a venous catheter 1 (one) time Active amLODIPine (Norvasc) 5 MG tabletIndications: Essential hypertension Take 1 tablet (5 mg) by mouth Daily 90 tablet 1 5 025 Active aspirin 81 MG EC tabletIndications: Essential (primary) hypertension Take 1 tablet (81 mg) by mouth Daily 90 tablet 1 5 025 Active donepezil (Aricept) 5 MG tabletIndications: Dementia, unspecified dementia severity, unspecified dementia type, unspecified whether behavioral, psychotic, or mood disturbance or anxiety (HCC) Take 1 tablet (5 mg) by mouth at bedtime 90 tablet 1 5 025 Active rosuvastatin (Crestor) 40 MG tabletIndications: Coronary artery disease involving picayune coronary artery of picayune heart, unspecified whether angina present,Mixed hyperlipidemia Take 1 tablet (40 mg) by mouth at bedtime 90 tablet 1 5 025 Active aspirin 81 MG EC tablet Take 81 mg by mouth Daily 025 Discontin ued(Reord er) amLODIPine (Norvasc) 5 MG tabletIndications: Essential hypertension Take 1 tablet (5 mg) by mouth Daily 90 tablet 1 5 025 Discontin ued(Reord er) donepezil (Aricept) 5 MG tabletIndications: Dementia, unspecified dementia severity, unspecified dementia type, unspecified whether behavioral, psychotic, or mood disturbance or anxiety (HCC) Take 1 tablet (5 mg) by mouth at bedtime 90 tablet 1 5 025 Discontin ued(Reord er) rosuvastatin (Crestor) 40 MG tabletIndications: Coronary artery disease involving picayune coronary artery of picayune heart, unspecified whether angina present,Mixed hyperlipidemia Take 1 tablet (40 mg) by mouth at bedtime 90 tablet 1 5 025 Discontin ued(Reord er) Active Problems Problem Noted Date Diagnosed Date MALHOTRA (dyspnea on exertion) 10/30/2024 Assessment & Plan (10/30/2024 11:41 AM EDT): Makes ambulation difficult, would help to have wheel chair Yeast dermatitis 10/01/2024 Body mass index (BMI) 37.0-37.9, adult 5 Major depressive disorder, recurrent, moderate 0 08/22/2024 Type 2 diabetes mellitus with hyperglycemia 08/04 Assessment & Plan (08/22/2024 6:58 AM EST): Monitor A1c periodically No current meds Limit simple sugars, recommend physical activity as chronic conditions allow Acute midline thoracic back pain 08/22/2024 Assessment & Plan (08/22/2024 3:05 PM EST): S/p fall, hx compression fracture, check t spine xray Chronic kidney disease, stage 3b 02/29/2024 Assessment & Plan (10/30/2024 6:24 AM EDT): Monitor labs yearly and prn Assessment & Plan (08/22/2024 6:57 AM EST): Monitor labs yearly and prn Type 2 diabetes mellitus wit h diabetic chronic kidney disease 02/29/2024 Assessment & Plan (01/29/2025 10:21 AM EDT): Monitor for s/s of hypoglycemia (sweaty, dizziness, [...] asa A1c: 6.3% 01/29/25 6% on 03/27 Assessment & Plan (08/22/2024 6:58 AM EST): No current diabetes meds A1c was 6% in 03/27 Monitor for s/s of hypoglycemia (sweaty, dizziness, nausea, vomiting, or shakiness). Watch for increase in thirst, urination, or appetite. Inspect feet frequently monitoring for open wounds , and also recommend yearly eye exam. Pt should attempt to remain as physically active as chronic conditions allow, as well as trying to follow a diet low in carbohydrates, and simple sugars. Assessment & Plan (06/05/2024 6:27 AM EST): No current diabetes meds A1c was 6% in 03/27 Monitor for s/s of hypoglycemia (sweaty, dizziness, nausea, vomiting, or shakiness). Watch for increase in thirst, urination, or appetite. Inspect feet frequently monitoring for open wounds , and also recommend yearly eye exam. Pt should attempt to remain as physically active as chronic conditions allow, as well as trying to follow a diet low in carbohydrates, and simple sugars. Assessment & Plan (02/29/2024 11:47 AM EDT): No current diabetes meds Check labs Renal artery stenosis 12/16/2023 Atherosclerosis of aorta 10/26/2023 Assessment & Plan (10/26/2023 10:58 AM EDT): Will be following with cardiology in December for heart cath and etc Encounter for subsequent kel[facility] wellness visit (AWV) in Medicare patient 10/26/2023 Assessment & Plan (10/30/2024 6:25 AM EDT): Reviewed Ht/Wt/BMI Recommend eye exam yearly Recommend dental exams twice a year Balance work/leisure activities Exercises is recommended most days of the week (appropriate as chronic conditions allow) Follow up yearly and prn Assessment & Plan (10/26/2023 10:59 AM EDT): Reviewed Ht/Wt/BMI Recommend eye exam yearly Recommend dental exams twice a year Balance work/leisure activities Exercises is recommended most days of the week (appropriate as chronic conditions allow) Follow up yearly and prn Pre-operative clearance 09/20/2023 Assessment & Plan (09/20/2023 9:29 AM EDT): Pt has a lumbar compression fracture that is scheduled to under go surgery at [facility] on 09/22/23 of L1 vertebroplasty. Is here for medical clearance. She has seen cardiology and has clearance from them. Her other medical conditions are stable and do not prohibit her from surgical intervention She does have dementia diagnosis, her daughter will be staying with her upon return home from surgery She is alert and answers questions appropriately today during the appt Cleared for surgery , also have reviewed cardiology notes Acute bilateral low back pain without sciatica 0 2023 Assessment & Plan (2023 1:57 PM EST): Sent to ER for evaluation, report called to Dr Wagner at [facility] ER Post menopausal syndrome 2023 Gastroesophageal reflux disease without esophagi tis 2023 Assessment & Plan (01/29/2025 6:23 AM EDT): Recommendations: freq small meals, nothing to eat or drink at least 2 hours prior to bed, limit caffeine, alcohol, as well as spicy foods Meds to limit or avoid if possible: NSAIDS Elevate HOB if possible Continue PPI therapy Assessment & Plan (06/05/2024 6:25 AM EST): Recommendations: freq small meals, nothing to eat or drink at least 2 hours prior to bed, limit caffeine, alcohol, as well as spicy foods Meds to limit or avoid if possible: NSAIDS Elevate HOB if possible Continue PPI therapy Hiatal hernia 05/17/2023 Diastolic dysfunction 02/17/2023 Overview (2023): GRADE 1 GRADE 1 Assessment & Plan (10/30/2024 11:41 AM EDT): Dyspnea on exertion No med dose changes Morbid (severe) obesity due to excess calories 0 01/10/2023 Assessment & Plan (01/29/2025 10:22 AM EDT): Discussed with patient their BMI (actual, verses [...] up after discussion with daughter and pt Assessment & Plan (10/30/2024 6:24 AM EDT): Discussed with patient their BMI (actual, verses recommended). We have also discussed lifestyle modifications: attempts to perform physical activity as chronic conditions allow, also to monitor dietary intake: increasing protein/fruits/veggies and lowering carb intake (unless contraindicated). Limit sodas, juices, and sugary drinks. Assessment & Plan (08/22/2024 6:58 AM EST): Discussed with patient their BMI (actual, verses recommended). We have also discussed lifestyle modifications: attempts to perform physical activity as chronic conditions allow, also to monitor dietary intake: increasing protein/fruits/veggies and lowering carb intake (unless contraindicated). Limit sodas, juices, and sugary drinks. Assessment & Plan (06/05/2024 6:27 AM EST): Discussed with patient their BMI (actual, verses recommended). We have also discussed lifestyle modifications: attempts to perform physical activity as chronic conditions allow, also to monitor dietary intake: increasing protein/fruits/veggies and lowering carb intake (unless contraindicated). Limit sodas, juices, and sugary drinks. GI bleeding 12/18/2022 Dementia 12/16/2022 Assessment & Plan (01/29/2025 6:23 AM EDT): Lives in own home, daughter stays with her Has her do exercises for mind Does play euchre weekly, does well with this Does have difficulty with recall things at times Daughter does all of her care Does have home health aid/nurse once a week [employer] Taking aricept Assessment & Plan (10/30/2024 6:24 AM EDT): Lives in own home, daughter stays with her Has her do exercises for mind Does play euchre weekly, does well with this Does have difficulty with recall things at times Daughter does all of her care Does have home health aid/nurse once a week [employer] Taking aricept Assessment & Plan (08/22/2024 6:57 AM EST): Lives in own home, daughter stays with her Has her do exercises for mind Does play euchre weekly, does well with this Does have difficulty with recall things at times Daughter does all of her care Does have home health aid/nurse once a week [employer] Taking aricept Assessment & Plan (06/05/2024 6:24 AM EST): Lives in own home, daughter stays with her Has her do exercises for mind Does play euchre weekly, does well with this Does have difficulty with recall things at times Daughter does all of her care Does have home health aid/nurse once a week [employer] Taking aricept Assessment & Plan (02/29/2024 11:49 AM EDT): Lives in own home, daughter stays with her Has her do exercises for mind Does play euchre weekly, does well with this Does have difficulty with recall things at times Daughter does all of her care Does have home health aid/nurse once a week [facility] Will see if qualifies for other services Assessment & Plan (10/26/2023 10:52 AM EDT): Is able to answer questions and follow commands USP current use of aspirin 06/10/2022 Overflow incontinence of urine 03/10/2022 Nonrheumatic aortic valve stenosis 03/10/2022 Diverticulosis of sigmoid colon 03/10/2022 Current moderate episode of major depressive dis order 03/10/2022 Assessment & Plan (06/05/2024 11:01 AM EST): Is not currently taking duloxetine 20mg daily Will discontinue the medication from med list Postmenopausal osteoporosis with pathological fr acture 10/26/2021 Assessment & Plan (10/30/2024 11:42 AM EDT): Had reclast recently Assessment & Plan (08/22/2024 3:05 PM EST): Has osteoporosis, was ordered Prolia, still no call from [facility], will call [facility] Has had compression fractures in the past Assessment & Plan (06/05/2024 9:55 AM EST): Had reclast infusion scheduled, but did not understand why labs needed done, so she did nt do it Explained process, so pt is willing to do Will wait for after 07/04/24 Assessment & Plan (10/26/2023 10:57 AM EDT): Had reclast infusion History of aortic valve replacement 04/28/2018 Essential (primary) hypertension 04/26/2018 Assessment & Plan (01/29/2025 6:23 AM EDT): Please check blood pressure daily and record DASH diet Limit caffeine Take medication as directed Contact office if chest pain, pressure, dizziness, shortness of breath, swelling legs Recommend slow position changes On amlodipine Assessment & Plan (10/30/2024 6:24 AM EDT): Please check blood pressure daily and record DASH diet Limit caffeine Take medication as directed Contact office if chest pain, pressure, dizziness, shortness of breath, swelling legs Recommend slow position changes On amlodipine Assessment & Plan (08/22/2024 6:57 AM EST): Please check blood pressure daily and record DASH diet Limit caffeine Take medication as directed Contact office if chest pain, pressure, dizziness, shortness of breath, swelling legs Recommend slow position changes On amlodipine Assessment & Plan (06/05/2024 6:24 AM EST): Please check blood pressure daily and record DASH diet Limit caffeine Take medication as directed Contact office if chest pain, pressure, dizziness, shortness of breath, swelling legs Recommend slow position changes On amlodipine Assessment & Plan (02/29/2024 11:46 AM EDT): Stable Check labs, no med dose changes Assessment & Plan (10/26/2023 10:56 AM EDT): At goal no changes Assessment & Plan (09/20/2023 9:26 AM EDT): Stable at this time Coronary artery disease invo lving picayune coronary artery of picayune heart 04/26/2018 Assessment & Plan (01/29/2025 10:20 AM EDT): Follows with cardiology Assessment & Plan (10/30/2024 11:41 AM EDT): Follows with cardiology Assessment & Plan (06/05/2024 9:54 AM EST): Continue with cardiology Is taking ASA, statin Assessment & Plan (09/20/2023 9:26 AM EDT): See cardiology notes Primary osteoarthritis of left knee 09/05/2017 Assessment & Plan (10/30/2024 11:42 AM EDT): No NSAIDS with CKD Pain limits mobility Mixed hyperlipidemia 07/27/2016 Assessment & Plan (06/05/2024 6:27 AM EST): UTD on labs Cont crestor at 40mg daily Assessment & Plan (02/29/2024 11:47 AM EDT): Check labs Primary osteoarthritis of right knee 10/21/2015 Assessment & Plan (10/30/2024 11:43 AM EDT): No NSAIDS d/t CKD OA limits mobility Encounters Date Type Department Care Team Description 01/29/2025 9:20 AM EDT Office Visit [facility] [address] [place] [address] Kaur Rosas NP Type 2 diabetes mellitus with stage 3a chronic kidney disease, without long-term current use of insulin (HCC) (Primary Dx); Dementia, unspecified dementia severity, unspecified dementia type, unspecified whether behavioral, psychotic, or mood disturbance or anxiety (HCC); Essential (primary) hypertension ; Gastroesophageal reflux disease without esophagitis; Chronic kidney disease, stage 3b ([facility]); Essential hypertension ; Coronary artery disease involving picayune coronary artery of picayune heart, unspecified whether angina present ; Mixed hyperlipidemia ; Morbid (severe) obesity due to excess calories ([facility]) 01/29/2025 Abstract [facility] [address] [place] [address] Kaur Rosas NP 01/29/2025 Bamboo flowsheet [facility] [address] [place] [address] Kaur Rosas NP 01/06/2025 Travel 01/06/2025 Plan of Care Documentation [facility] [address] [place] [address] 01/01/2025 11:30 AM EDT Clinical Support [facility] [address] [place] [address] Luz Maria Victoria M, PT Essential (primary) hypertension (Primary Dx); Dementia, unspecified dementia severity, unspecified dementia type, unspecified whether behavioral, psychotic, or mood disturbance or anxiety (HCC); Chronic kidney disease, stage 3b ([facility]) from Last 3 Months Immunizations Immunization Administration Dates Next Due Influenza, High Dose Seasona l, Preservative Free 03/28/2024,04/23/2019,04/12/2019,03/28,05/04/2016 Influenza, High-dose Seasona l, Quadrivalent, Preservative Free 03/29/2023,04/12/2022,03/27/2021,04/09 Influenza, seasonal, injectable 05/04/2015 Moderna SARS-CoV-2 Vaccination 08/15/2020,2020 Pfizer Purple Cap SARS-CoV-2 Vaccination 08/14/2020,07/24/2020 Pneumococcal Conjugate PCV 13 07/22/2015 Pneumococcal Conjugate PCV 20 07/02/2024 Pneumococcal Polysaccharide PPSV23 01/14/2017 Zoster, Recombinant 06/19/2024 Family History Medical History Relation Name Comments Heart disease Father Relation Name Status Comments Father Mother (Age 97) Social History Tobacco Use Types Packs/Day Years Used Date Smoking Tobacco: Never Smokeless Tobacco: Never Tobacco Cessation:Counseling Given: Not Answered Alcohol Use Standard Drinks/Week Comments Never 0 [...] 10/26/2023 How often do you attend chur or sikh services? More than 4 times per year 10/26/2023 Do you belong to any clubs o r organizations such as moravian groups, unions, fraternal or athletic groups, or [...] Recorded Patient Health Questionnaire-2 Score 0 10/30/2024 [facility] - Occupational Stress Questionnaire Answer [...] money to buy more. Never true 10/26/19 24 Within the past 12 months, t he [...] on file Sexual Orientation Not on file Last Filed Vital Signs Vital Sign Reading [...] oz) 01/29/2025 9:23 A M EDT Height 154.9 cm (5' 1 ) 06/05/2024 9:22 AM EST Body Mass Index 34.5 06/05/2024 9:22 AM EST Plan of Treatment Upcoming Encounters Date Type Department Care Team (Late st Contact Info) Description 04/30/2025 9:00 AM EDT Office Visit [facility] [address] [place] [phone] Kaur Rosas NP [address] [place] [id number] Health Maintenance Due Date Last Done Comments Influenza Vaccine (#1) 2025 4, 03/29/2023, 04/12/2022, Additional history exists Medicare Annual Wellness (AWV) 10/30/2025 10/30/2024, 10/30/2024, 10/26/2023 Diabetes: Urine Protein Screening 07/04/2026 Postponed from 09[birth year]02/1959 (Other Medical Reasons) Pneumococcal Vaccine: 65+ Years Completed 07/02/2024, 01/14/2017, 07/22/2015 Diabetes: Hemoglobin A1C Discontinued 01/29/2025 Diabetes: Retinopathy Screening Discontinued Procedures Procedure Name Priority Date/Time Associated Diagnosis Comments POCT GLYCOSYLATED HEMOGLOBIN (HGB A1C) Routine 01/29/2025 9:37 AM EDT Type 2 diabetes mellitus with stage 3a chronic kidney disease, without long-term current use of insulin ([facility]) from Last 3 Months Results * (ABNORMAL) POCT glycosylated hemoglobin (Hb A1C) docked device (01/29/2025 9:37 AM EDT) Hemoglobin A1C 6.2 Blood Venous blood specimen / Unknown 01/29/2025 9:37 AM EDT Kaur Rosas NP POINT OF CARE TEST ENTER/EDIT O RDERABLES Final Result from Last 3 Months Insurance MEDICARE [facility] Care Teams Sausage Grinder Relationship Specialty Start Date End Date Thony Escalante MD [address] [place] [address] PCP - General Family Medicine 09/01/23 Kaur Rosas NP [address] [place] [address] Nurse Practitioner Family Medicine 05/09/23 Thony Escalante MD [address] [place] [address] Referring Physician Family Medicine 09/01/23
--- OUTSIDE RECORDS SUMMARY | 2025-02-04 07:51 | XMS_ITS | Encounter Summary ---
Author Organization [facility] tem Address [id number] [address] [place] [address] Care Team Providers Care Cash Shortage Investigator Name Role Phone GustavoKaur rojo Franco FRANCO-METALIZING MACHINE OPERATOR AUTOMATIC Primary Care Provider Encounter Details Date Type Department Care Team (Late st Contact Info) Description 06/09/2022 Orders Only [facility] - Family Medicine [address] [place] [id number] Katia Rene MA Mixed hyperlipidemia; Stage 3b chronic kidney disease ([facility]) Social History Tobacco Use Types Packs/Day Years [...] AM EST documented as of this encounter Plan of Treatment Not on file documented as of this encounter Procedures Procedure Name Priority Date/Time Associated Diagnosis Comments LIPID PROFILE Routine 06/04/2022 Mixed hyperlipidemia COMPREHENSIVE METABOLIC PANEL Routine 06/04/2022 Mixed hyperlipidemia Stage 3b chronic kidney disease (CMS-HCC) documented in this encounter Results * Lipid panel (06/04/2022) External Cholesterol 160 <=200 [facility] External Cholesterol:Hdl 2.7 [facility] External Hdl Cholesterol 59 40 - 60 [facility] External Ldl (Calc) 80.2 [facility] External Triglycerides 104 [facility] External Very Low Lipoprotein 20.8 [facility] Blood 06/04/2022 Destiney Paula GUARD DANCE HALL-HAULING CONTRACTOR LAB BLOOD ORDERABLES Final Result Performing Organization Address City/[facility] Co de Phone Number [facility] * Comprehensive metabolic panel (06/04/2022) External Albumin 3.4 [facility] External Alt Sgpt 14 [facility] External Anion Gap 14.5 [facility] External Ast 15 [facility] External Blood Urea Nitrogen Bun 49.0 [facility] External Calcium Ca 9.4 [facility] External Chloride 102 [facility] External Co2 / Carbon Dioxide 23.7 [facility] External Creatinine 1.48 [facility] External Gfr Non Amer 34 [facility] External Alkaline Phosphatase 34 [facility] External Glucose Fasting Or Random (Fbs) 99 [facility] External Potassium K 5.2 [facility] External Sodium Na 135 [facility] Total Bilirubin 0.3 [facility] External Total Protein 7.7 [facility] Blood 06/04/2022 Destiney Paula GUARD DANCE HALL-HAULING CONTRACTOR LAB BLOOD ORDERABLES Final Result Performing Organization Address City/[facility]/ZIP Co de Phone Number [facility] documented in this encounter Visit Diagnoses Diagnosis Mixed hyperlipidemia Stage 3b chronic kidney disease (CMS-HCC) documented in this encounter Care Teams Cash Shortage Investigator Relationship Specialty Start Date End Date Kaur Rosas APRN-LUIS PCP - General Nurse Practitioner 05/05/23 documented as of this encounter
--- OUTSIDE RECORDS SUMMARY | 2025-02-04 07:51 | XMS_ITS | Clinical Summary ---
Author Organization [facility] Address [address] [place] [address] Phone Care Team Providers Care Auto Damage Adjuster Name Role Phone Unavailable Primary Care Provider Unavailabl e Social History Tobacco Use Types Packs/Day Years Used Date Smoking Tobacco: Never Assessed Comments Unknown Sex and Gender Information Value Date Recorded Sex Assigned at Not on file Legal Sex Female 1:15 PM EDT Gender Identity Not on file Sexual Orientation Not on file Plan of Treatment Health Maintenance Due Date Last Done Comments Lipid Panel 1940 Yearly Adult Physical 1940 DTaP/Tdap/Td Vaccines (1 - Tdap) 1962 Pneumococcal Vaccine (1 of 1 - PCV) 1990 Zoster Vaccines (1 of 2) 1990 Bone Density Scan 2005 RSV High Risk: (Elderly (60+ ) or Population) (1 - 1-dose 75+ series) 09/02/2015 COVID-19 Vaccine ( - 2023-2 5 season) 2024 Influenza Vaccine (#1) 2025 HIB Vaccines Aged Out No longer eligi ble based on patient's age to complete this topic HPV Vaccines Aged Out No longer eligi ble based on patient's age to complete this topic Hepatitis A Vaccines Aged Out No long er eligible based on patient's age to complete this topic Hepatitis B Vaccines Aged Out No long er eligible based on patient's age to complete this topic IPV Vaccines Aged Out No longer eligi ble based on patient's age to complete this topic Meningococcal Vaccine Aged Out No christiano iqra eligible based on patient's age to complete this topic Rotavirus Vaccines Aged Out No longer eligible based on patient's age to complete this topic
--- OUTSIDE RECORDS SUMMARY | 2025-02-04 07:51 | XMS_ITS | Encounter Summary ---
Author Organization [facility] Address [address] [place] [address] Care Team Providers Care Hydraulics Engineer Name Role Phone Kaur Rosas LACEWORKER Unavailable [phone] Thony Escalante MD Primary Care Provider [phone] Thony Escalante MD Unavailable Encounter Details Date Type Department Care Team (Late st Contact Info) Description 01/29/2025 Abstract [facility] [address] [place] [address] Kaur Rosas, LACEWORKER [address] [place] [address] Social History Tobacco Use Types Packs/Day Years [...] often do you attend chur ch or advent services? More than 4 times per year 10/26/2023 Do you belong to any clubs o r organizations such as zoroastrian groups, unions, fraternal or athletic groups, or [...] Recorded Patient Health Questionnaire-2 Score 0 10/30/2024 [facility] - Occupational Stress [...] place to sleep or slept in a usp (including now)? No 10/26/2023 Comments Unknown Sex and Gender Information Value Date Recorded Sex Assigned at Not on file Legal Sex Female 6:51 PM EDT Gender Identity Not on file Sexual Orientation Not on file documented as of this encounter Plan of Treatment Upcoming Encounters Date Type Department Care Team (Late st Contact Info) Description 04/30/2025 9:00 AM EDT Office Visit [facility] [address] [place] [address] Kaur Rosas NP [address] [place] [address] documented as of this encounter Visit Diagnoses Not on filedocumented in this encounter Additional Health Concerns Assessment Noted Time PHQ-9 Depression Total Score: 1 10/31/19 25 10:20 AM EDT documented as of this encounter Care Teams Hydraulics Engineer Relationship Specialty Start Date End Date Thony Escalante MD [address] [place] [address] PCP - General Family Medicine 09/01/23 Kaur Rosas NP [address] [place] [address] Nurse Practitioner Family Medicine 05/09/23 Thony Escalante MD [address] [place] [address] Referring Physician Family Medicine 09/01/23 documented as of this encounter
--- OUTSIDE RECORDS SUMMARY | 2025-02-04 07:51 | XMS_ITS | Encounter Summary ---
Author Organization [facility] Address [address] [place] [address] Care Team Providers Care Foot Tender Name Role Phone Kaur Rosas NP Unavailable [phone] Thony Escalante MD Primary Care Provider [phone] Thony Escalante MD Unavailable Chanda Orozco RN Unavailable [phone] Encounter Details Date Type Department Care Team (Late st Contact Info) Description 09/07/2023 Orders Only [facility] [address] [place] [address] Social History Tobacco Use Types Packs/Day Years Used Date Smoking Tobacco: Never Smokeless Tobacco: Never Alcohol Use Standard Drinks/Week Comments Never 0 (1 standard drink = 0.6 oz pur e alcohol) coffee: 1-2 cups daily PHQ-2 Answer Date Recorded Patient Health Questionnaire-2 Score 0 2023 Comments Unknown Sex and Gender Information Value Date Recorded Sex Assigned at Not on file Legal Sex Female 6:51 PM EDT Gender Identity Not on file Sexual Orientation Not on file documented as of this encounter Plan of Treatment Upcoming Encounters Date Type Department Care Team (Late st Contact Info) Description 04/30/2025 9:00 AM EDT Office Visit [facility] [address] [place] [address] Kaur Rosas, JACKSPOOLER [address] [place] [address] documented as of this encounter Procedures Procedure Name Priority Date/Time Associated Diagnosis Comments ECG 12-LEAD Routine 09/07/2023 5:32 PM EST documented in this encounter Results * ECG 12 lead (09/07/2023 5:32 PM EST) [facility] ECG ORDERABLES Final Result documented in this encounter Visit Diagnoses Not on filedocumented in this encounter Care Teams Foot Tender Relationship Specialty Start Date End Date Thony Escalante MD [address] [place] [address] PCP - General Family Medicine 09/01/23 Kaur Rosas NP [address] [place] [address] Nurse Practitioner Family Medicine 05/09/23 Thony Escalante MD [address] [place] [address] Referring Physician Family Medicine 09/01/23 Chanda Orozco, CHANTEL [address] [place] [address] Registered Nurse Family Medicine 02/29/24 03/15/24 documented as of this encounter
--- OUTSIDE RECORDS SUMMARY | 2025-02-04 07:51 | XMS_ITS | Encounter Summary ---
Author Organization [facility] [facility] Address [id number] [address] [place] [address] Care Team Providers Care Body Care Manager Name Role Phone GustavoKaur rojo Franco 911 TELECOMMUNICATOR-RING SORTER Primary Care Provider Reason for Visit * Reason Comments Med Refill Encounter Details Date Type Department Care Team (Late st Contact Info) Description 10/22/2022 Refill [facility] - Family Medicine [address] [place] [address] Destiney Paula, SALVADOR-KEY BED INSTALLER [address] [place] [address] Essential hypertension Social History Tobacco Use Types Packs/Day Years Used Date Smoking Tobacco: Never Smokeless Tobacco: Never Alcohol Use Standard Drinks/Week Comments Yes 3 (1 standard drink = 0.6 oz pur e alcohol) DRINKS DAILY PHQ-2 Answer Date Recorded Total Score 0 09/29/2022 Childcare Answer Date Recorded Childcare Unknown 12/13/2018 [...] have Coronavirus / COVID-19? No / Unsure 09/29/2022 8:49 AM EDT documented as of this encounter Plan of Treatment Not on file documented as of this encounter Visit Diagnoses Diagnosis Essential hypertension Unspecified essential hypertension documented in this encounter Additional Health Concerns Assessment Noted Time PHQ-9 Depression Total Score: 0 09/30/19 23 9:02 AM EDT documented as of this encounter Care Teams Body Care Manager Relationship Specialty Start Date End Date Kaur Rosas, SALVADOR-RING SORTER PCP - General Nurse Practitioner 05/05/23 documented as of this encounter
--- OUTSIDE RECORDS SUMMARY | 2025-02-04 07:51 | XMS_ITS | Clinical Summary ---
Author Organization [facility] Address [address], [address] [place] [address] Care Team Providers Care Manager Reliability Name Role Phone Preet Gonzalez DO Primary Care Provider Allergies No known active allergies Medications rosuvastatin (CRESTOR) 20 MG tablet Take 20 mg by mouth nightly Active Cholecalciferol (VITAMIN D3) 2000 units CAPS Take by mouth daily Active Ascorbic Acid (VITAMIN C) 250 MG tablet Take 250 mg by mouth daily Active Glucosamine 500 MG CAPS Take by mouth Active Zinc Sulfate (ZINC 15 PO) Take by mouth Active Multiple Vitamins-Minera ls (MULTIVITAMIN ADULTS PO) Take by mouth Active [place]-3 Fatty Acids (FISH OIL) 1000 MG CAPS Take 3,000 mg by mouth daily Active ibuprofen (ADVIL;MOTRIN) 800 MG tablet Take 800 mg by mouth every 6 hours as needed for Pain Active aspirin 325 MG tablet Take 325 mg by mouth daily Active Cyanocobalamin (VITAMIN B 12 PO) Take by mouth Active acetaminophen (TYLENOL) 325 MG tablet Take 2 tablets by mouth every 4 hours as needed for Pain 120 tablet 3 11/22/2017 Active rivaroxaban (XARELTO) 10 MG TABS tablet Take 1 tablet by mouth daily 12 tablet 11/23/2017 Active Active Problems Problem Noted Date Diagnosed Date Primary osteoarthritis of right knee 11/21/2017 Acute blood loss as cause of postoperative anemi a 09/19/2017 Primary osteoarthritis of left knee 09/05/2017 Social History Tobacco Use Types Packs/Day Years Used Date Smoking Tobacco: Never Smokeless Tobacco: Never Alcohol Use Standard Drinks/Week Comments Yes 0 (1 standard drink = 0.6 oz pur e alcohol) liquor- 3 drinks a day Comments No Sex and Gender Information Value Date Recorded Sex Assigned at Not on file Legal Sex Female 6:45 PM EST Gender Identity Not on file Sexual Orientation Not on file Last Filed Vital Signs Vital Sign Reading Time Taken Comments Blood Pressure 116/59 11/22/2017 11:30 AM EDT Pulse 77 11/22/2017 11:30 AM EDT Temperature 36.7 C (98 F) 11/22/2017 11:30 AM EDT Respiratory Rate 18 11/22/2017 11:30 AM EDT Oxygen Saturation 95% 11/22/2017 11:30 AM EDT Inhaled Oxygen Concentration - - Weight 68.7 kg (151 lb 8 oz) 11/22/2017 1:45 AM EDT Height 157.5 cm (5' 2 ) 11/21/2017 11:05 AM EDT Body Mass Index 27.71 11/21/2017 11:05 AM EDT Plan of Treatment Not on file Medical Devices Implanted Type Area Research Methodologist Device Identifier Shelf Expiration Date Model / Serial / Lot Cement Palacos R Sing Dose 40gr Implanted:Qty : 2 on 09/05/2017 by Rashaad Felix MD at [facility] Cement Left: Knee [employer] 10/31/2021 [id number] / / [id number] Cement Palacos R Sing Dose 40gr Implanted:Qty : 1 on 11/21/2017 by Rashaad Felix MD at [facility] Cement Right: Knee [employer] 10/31/2021 [id number] / / [id number] Cement Palacos R Sing Dose 40gr Implanted:Qty : 1 on 11/21/2017 by Rashaad Felix MD at [facility] Cement Right: Knee [employer] 03/03/2022 [id number] / / [id number] Impl Knee Patella Nxgn All Poly 8.5x32mm Implanted:Qty : 1 on 09/05/2017 by Rashaad Felix MD at [facility] Knee Left: Knee [employer] 08/03/2025 [id number] / / [id number] Impl Knee Tib Left Persona 5 Deg Stemmed Sz E Implanted:Qty : 1 on 09/05/2017 by Rashaad Felix MD at [facility] Knee Left: Knee [employer] 04/02/2027 [id number] / / [id number] Impl Knee Femur Persona Sz 7 Implanted:Qty : 1 on 09/05/2017 by Rashaad Felix MD at [facility] Knee Left: Knee [employer] 03/03/2027 [id number] / / [id number] Impl Knee Psn Asf Uc 11mm Ply L 4 11 Ef Implanted:Qty : 1 on 09/05/2017 by Rashaad Felix MD at [facility] Knee Left: Knee [employer] 12/31/2022 [id number] / / [id number] Impl Knee Psn Stib Stm 5deg Sherif R Implanted:Qty : 1 on 11/21/2017 by Rashaad Felix MD at [facility] Knee Right: Knee [employer] 01/31/2027 [id number] / / [id number] Impl Knee Psn Asf Cr 10mm Ply R 3 11 Ef Implanted:Qty : 1 on 11/21/2017 by Rashaad Felix MD at [facility] Knee Right: Knee [employer] 08/31/2024 [id number] / / [id number] Impl Knee Femur Persona Sz 7r Implanted:Qty : 1 on 11/21/2017 by Rashaad Felix MD at [facility] Knee Right: Knee [employer] 03/03/2027 [id number] / / [id number] Impl Knee Patella Nxgn All Poly 8.5x32mm Implanted:Qty : 1 on 11/21/2017 by Rashaad Felix MD at [facility] Knee Right: Knee [employer] 10/01/2025 [id number] / / [id number] Insurance MEDICARE GENERIC COMMERCIAL Member Subscriber Plan / Payer ( fective 2014-Present) Name:Maria Esther Bee Relation to Subscriber:Self Name:Maria Esther Bee Payer ID:Not on file Group ID:[id number] Type:Indemnity Address: [facility] [address] [place] [address] Advance Directives * Full Code (Latest Code Status on File) Date Activated Date Inactivated Comments 11/21/2017 11:42 AM 11/22/2017 5:48 PM * Full Code Date Activated Date Inactivated Comments 09/05/2017 11:03 AM 09/07/2017 9:46 PM Care Teams Manager Reliability Relationship Specialty Start Date End Date Preet Gonzalez DO PCP - General 08/16/17
--- OUTSIDE RECORDS SUMMARY | 2025-02-04 07:51 | XMS_ITS | Encounter Summary ---
Author Organization [facility] [employer] [facility] Address [id number] [address] [place] [address] Care Team Providers Care Rn Diabetes Name Role Phone GsutavoKaur rojo Franco AIR DRIER MACHINE OPERATOR-VACUUM TECHNICIAN Primary Care Provider Reason for Visit * Reason Comments Med Refill Encounter Details Date Type Department Care Team (Late st Contact Info) Description 09/29/2022 Refill [facility] - Family Medicine [address] [place] [address] Destiney Paula, SALVADOR-CUSTOMER SUPPORT COORDINATOR [address] [place] [address] Essential hypertension Social History Tobacco Use Types [...] documented as of this encounter Care Teams Rn Diabetes Relationship Specialty Start Date End Date Kaur Rosas, SALVADOR-VACUUM TECHNICIAN PCP - General Nurse Practitioner 05/05/23 documented as of this encounter
--- OUTSIDE RECORDS SUMMARY | 2025-02-04 07:51 | XMS_ITS | Encounter Summary ---
Author Organization [facility] tem Address [id number] [address] [place] [address] Care Team Providers Care Fall Internship Name Role Phone Kaur Rosas NURSES' AIDE-STUDENT SUPPORT ADVISOR Primary Care Provider Encounter Details Date Type Department Care Team (Late st Contact Info) Description 12/13/2022 Orders Only [facility] - Family Medicine [address] [place] [address] Ref Prov, [place] [address] Social History Tobacco Use Types Packs/Day Years [...] Procedure Name Priority Date/Time Associated Diagnosis Comments CT BRAIN W WO CONT Routine 12/13/2022 XR CHEST 1 VW Routine 12/13/2022 documented in this encounter Results * X-ray chest 1 view (12/13/2022) Anatomical Region Laterality Modality Body, Chest N/A Computed Radiogr aphy us Not In System Ref Prov IMG DIAGNOSTIC IMAGING OR DERABLES Final Result * CT brain with and without contrast (12/13/2022) Anatomical Region Laterality Modality Neuro, Head, Head and Neck, Neuro Covera N/A Computed Tomography us Not In System Ref Prov IMG CT ORDERABLES Final R esult documented in this encounter Visit Diagnoses Not on filedocumented in this encounter Additional Health Concerns Assessment Noted Time PHQ-9 Depression Total Score: 0 09/30/19 9:02 AM EDT documented as of this encounter Care Teams Fall Internship Relationship Specialty Start Date End Date Kaur Rosas, NURSES' AIDE-STUDENT SUPPORT ADVISOR PCP - General Nurse Practitioner 05/05/23 documented as of this encounter
--- OUTSIDE RECORDS SUMMARY | 2025-02-04 07:51 | XMS_ITS | Encounter Summary ---
Author Organization [facility] Address [address] [place] [address] Care Team Providers Care Business Leader Name Role Phone Kaur Rosas NP Unavailable [phone] Thony Escalante MD Primary Care Provider [phone] Thony Escalante MD Unavailable Encounter Details Date Type Department Care Team (Late st Contact Info) Description 01/29/2025 Bamboo flowsheet [facility] [address] [place] [phone] Kaur Rosas NP [address] [place] [address] Social History Tobacco Use Types Packs/Day Years [...] often do you attend chur ch or jain services? More than 4 times per year 10/26/2023 Do you belong to any clubs o r organizations such as denominational groups, unions, fraternal or athletic groups, or [...] Recorded Patient Health Questionnaire-2 Score 0 10/30/2024 [facility] ional [facility] - Occupational Stress Questionnaire Answer Date Recorded [...] place to sleep or slept in a fpc (including now)? No 10/26/2023 Comments Unknown Sex and Gender Information Value Date Recorded Sex Assigned at Not on file Legal Sex Female 6:51 PM EDT Gender Identity Not on file Sexual Orientation Not on file documented as of this encounter Plan of Treatment Upcoming Encounters Date Type Department Care Team (Late st Contact Info) Description 04/30/2025 9:00 AM EDT Office Visit [facility] [address] [place] [address] Kaur Rosas NP [address] [place] [address] documented as of this encounter Visit Diagnoses Not on filedocumented in this encounter Additional Health Concerns Assessment Noted Time PHQ-9 Depression Total Score: 1 10/31/19 25 10:20 AM EDT documented as of this encounter Care Teams Business Leader Relationship Specialty Start Date End Date Thony Escalante MD [address] [place] [address] PCP - General Family Medicine 09/01/23 Kaur Rosas NP [address] [place] [address] Nurse Practitioner Family Medicine 05/09/23 Thony Escalante MD [address] [place] [address] Referring Physician Family Medicine 09/01/23 documented as of this encounter
--- OUTSIDE RECORDS SUMMARY | 2025-02-04 07:51 | XMS_ITS | Encounter Summary ---
Author Organization [facility] Address [id number] [address] [place] [address] Care Team Providers Care Mason Helper Name Role Phone Kaur Rosas APRN-SPECIALTY FINISHING UTILITY PERSON Primary Care Provider Reason for Visit * Reason Comments Med Refill Encounter Details Date Type Department Care Team (Late st Contact Info) Description 07/15/2022 Refill [facility] - Family Medicine [address] [place] [address] Destiney Paula, LAND ACQUISITION SPECIALIST-CROWN ATTACHER [address] [place] [address] Insomnia, unspecified Social History Tobacco Use Types Packs/Day Years [...] as of this encounter Visit Diagnoses Diagnosis Insomnia, unspecified documented in this encounter Care Teams Mason Helper Relationship Specialty Start Date End Date Kaur Rosas APRN-SPECIALTY FINISHING UTILITY PERSON PCP - General Nurse Practitioner 05/05/23 documented as of this encounter
--- OUTSIDE RECORDS SUMMARY | 2025-02-04 07:51 | XMS_ITS | Encounter Summary ---
Author Organization [facility] Address [id number] [address] [place] [address] Care Team Providers Care Hydrometallurgical Engineer Name Role Phone GustavoKaur rojo Franco FRANCO-STATION REPAIRER Primary Care Provider Encounter Details Date Type Department Care Team (Late st Contact Info) Description 03/12/2022 Orders Only [facility] - Family Medicine [address] [place] [address] External, Scanning Provider Social History Tobacco Use Types Packs/Day Years [...] PM EDT documented as of this encounter Plan of Treatment Not on file documented as of this encounter Procedures Procedure Name Priority Date/Time Associated Diagnosis Comments COMPREHENSIVE METABOLIC PANEL Routine 03/09/2022 documented in this encounter Results * Comprehensive metabolic panel (03/09/2022) 03/09/2022 us Scanning Provider External LAB BLOOD ORDERABLES Final Result MANUALLY TRANSCRIBED RESULTS documented in this encounter Visit Diagnoses Not on filedocumented in this encounter Care Teams Hydrometallurgical Engineer Relationship Specialty Start Date End Date Kaur Rosas, MACHINIST HELPER-STATION REPAIRER PCP - General Nurse Practitioner 05/05/23 documented as of this encounter
--- OUTSIDE RECORDS SUMMARY | 2025-02-04 07:51 | XMS_ITS | Encounter Summary ---
Author Organization [facility] Address [address] [place] [address] Care Team Providers Care Lead Manufacturing Engineering Tech Name Role Phone Kaur Rosas NP Unavailable [phone] Thony Escalante MD Primary Care Provider [phone] Thony Escalante MD Unavailable Chanda Orozco RN Unavailable [phone] Encounter Details Date Type Department Care Team (Late Contact Info) Description 09/04/2023 Abstract [facility] [address] [place] [address] Kaur Rosas, REANNA [address] [place] [address] Social History Tobacco Use Types Packs/Day Years [...] Encounters Date Type Department Care Team (Late Contact Info) Description 04/30/2025 9:00 AM EDT Office Visit [facility] [address] [place] [address] Kaur Rosas, DOCTOR OF NURSING PRACTICE [address] [place] [address] documented as of this encounter Visit Diagnoses Not on filedocumented in this encounter Care Teams Lead Manufacturing Engineering Tech Relationship Specialty Start Date End Date Thony Escalante MD [address] [place] [address] PCP - General Family Medicine 09/01/23 Kaur Rosas NP [address] [place] [address] Nurse Practitioner Family Medicine 05/09/23 Thony Escalante MD [address] [place] [address] Referring Physician Family Medicine 09/01/23 Chanda Orozco, CHANTEL [address] [place], [place] [phone] Registered Nurse Family Medicine 02/29/24 03/15/24 documented as of this encounter
--- OUTSIDE RECORDS SUMMARY | 2025-02-04 07:51 | XMS_ITS | Encounter Summary ---
Author Organization [facility] Address [id number] [address] [place] [address] Care Team Providers Care Food Service Team Member Name Role Phone GustavoKaur rojo Franco FRANCO-DISTRICT ADMINISTRATIVE ASSISTANT Primary Care Provider Encounter Details Date Type Department Care Team (Late st Contact Info) Description 03/01/2022 Orders Only [facility] - Family Medicine [address] [place] [address] External, Scanning Provider Social History Tobacco Use [...] Procedure Name Priority Date/Time Associated Diagnosis Comments DEXA SCAN Routine 10/26/2021 MAMMOGRAPHY Routine 08/14/2021 LIPID PROFILE Routine 03/23/2021 documented in this encounter Results * DEXA SCAN (10/26/2021) Anatomical Region Laterality Modality Other us Scanning Provider External HEALTH MAINTENANCE Fi nal Result * MAMMOGRAPHY (08/14/2021) Anatomical Region Laterality Modality Other us Scanning Provider External HEALTH MAINTENANCE Fi nal Result * (ABNORMAL) Lipid profile (03/23/2021) External Cholesterol 146 < - 200 MANUALLY TRANSCRIBED RESULTS External Cholesterol:Hdl 2.7 < - 5.0 MANUALLY TRANSCRIBED RESULTS External Hdl Cholesterol 54(A) > - 50 MANUALLY TRANSCRIBED RESULTS External Ldl (Calc) 73 MANUALLY TRANSCRIBED RESULTS External Triglycerides 104 < - 150 MANUALLY TRANSCRIBED RESULTS 03/23/2021 us Scanning Provider External LAB BLOOD ORDERABLES Final Result MANUALLY TRANSCRIBED RESULTS documented in this encounter Visit Diagnoses Not on filedocumented in this encounter Care Teams Food Service Team Member Relationship Specialty Start Date End Date Kaur Rosas, ORACLE ENGINEER-DISTRICT ADMINISTRATIVE ASSISTANT PCP - General Nurse Practitioner 05/05/23 documented as of this encounter
--- OUTSIDE RECORDS SUMMARY | 2025-02-04 07:51 | XMS_ITS | Encounter Summary ---
Author Organization [facility] [employer] [facility] [employer] Address [id number] [address] [place] [address] Care Team Providers Care Semiconductor Wafers Saw Operator Name Role Phone GustavoKaur rojo Franco FRANCO-INFORMATION SYSTEMS SECURITY ANALYST Primary Care Provider Reason for Visit * Reason Onset Date Comments Med Refill 10/05/2022 Encounter Details Date Type Department Care Team (Late st Contact Info) Description 10/05/2022 Refill [facility] - Family Medicine [address] [place] [address] Tierney Borrego CMA Essential hypertension Social History Tobacco Use Types [...] documented as of this encounter Care Teams Semiconductor Wafers Saw Operator Relationship Specialty Start Date End Date Kaur Rosas, FILTER PLANT SUPERVISOR-INFORMATION SYSTEMS SECURITY ANALYST PCP - General Nurse Practitioner 05/05/23 documented as of this encounter
--- OUTSIDE RECORDS SUMMARY | 2025-02-04 07:51 | XMS_ITS | Clinical Summary ---
Author Organization Anita Margarita tem Address [facility] [place]-[id number] [address] [place] [address] Care Team Providers Care Grocery Store Courtesy Clerk Name Role Phone Kaur Rosas APRN-CASSANDRA DEVELOPER Primary Care Provider Allergies No known active allergies Medications aspirin 81 mg Take 1 tablet (81 mg total) by mouth in the morning. Active pantoprazole (PROTONIX) 40 mg EC tablet Take 1 tablet (40 mg total) by mouth 2 (two) times daily at 0800 and 1500. Active donepeziL (ARICEPT) 5 mg tablet TAKE 1 TABLET EVERY MORNING 90 tablet 1 3 Active rosuvastatin (CRESTOR) 40 mg tabletIndications: Mixed hyperlipidemia TAKE 1 TABLET BY MOUTH EVERY DAY 90 tablet 1 3 Active multivitamin capsule Take 1 capsule by mouth in the morning. Active amLODIPine (NORVASC) 5 mg tablet TAKE 1 TABLET EVERY MORNING 90 tablet 3 3 Active ferrous sulfate 325 (65 FE) mg tablet TAKE 1 TABLET BY MOUTH EVERY DAY WITH BREAKFAST 90 tablet 4 Active Active Problems Problem Noted Date Diagnosed Date Renal artery stenosis 12/16/2023 Obesity, morbid 01/10/2023 GI bleeding 12/18/2022 12/27/2022 Dementia 12/16/2022 12/27/2022 salvage determiner current use of aspirin 06/10/2022 09/29/2022 Benign hypertension with CKD (chronic kidney disease) stage III 06/09/2022 Diverticulosis of sigmoid colon 03/10/2022 Hypoferremia 03/10/2022 Aortic valve stenosis 03/10/2022 Overflow incontinence of urine 03/10/2022 Current moderate episode of major depressive dis order 03/10/2022 Postmenopausal osteoporosis with pathological fr acture 10/26/2021 Age-related osteoporosis wit hout current pathological fracture 10/16/2018 S/P AVR (aortic valve replacement) 04/28/2018 Coronary artery disease invo lving [place] coronary artery of [place] heart 04/26/2018 Essential hypertension 04/26/2018 Primary osteoarthritis of left knee 09/05/2017 Mixed hyperlipidemia 07/27/2016 Primary osteoarthritis of right knee 10/21/2015 Nonrheumatic aortic valve stenosis Diastolic dysfunction Overview (12/27/2022): GRADE 1 Resolved Problems Problem Noted Date Diagnosed Date Resolved Date Dementia associated with oth er underlying disease without behavioral disturbance 06/10/2022 09/29/2022 0 09/29/2022 Essential hypertension 06/09/202206/09 Closed intertrochanteric fracture 03/10/2022 06/09/2022 Osteoporosis 03/10/2022 06/09/2022 Overweight 03/10/2022 06/09/2022 Hypertension 07/16/2021 06/09/2022 Dementia 04/21/2021 09/29/2022 Closed fracture of hand 05/21/2020 12/0 01/2022 Acute blood loss as cause of postoperative anemia 09/19/2017 06/09/2022 Fracture of femur 01/27/2016 06/09/2022 Hyperlipidemia 05/11/2022 Chest pain 04/27/2017 Immunizations Immunization Administration Dates Next Due COVID-19, mRNA, LNP-S, PF, 100mcg/0.5mL Dose 08/15/2020,07/18/2020 COVID-19, mRNA, LNP-S, PF, 3 0mcg/0.3mL Dose 10/11/2021 Influenza High Dose Preserva tive Free IM 04/23/2019,04/12/2019,03/28/2018,05/04 Influenza, High-dose, Quadrivalent 03/27/2021, Influenza, Im Trivalent Preservative 05/04/2015 Pneumococcal Conjugate 13-Valent 07/22/2015 Pneumococcal Polysaccharide 01/14/2017 Family History Medical History Relation Name Comments Heart attack Brother Hyperlipidemia Brother Hypertension Brother Other Brother Coronary Arteri osclerosis Heart attack Father Hypertension Father Alzheimer's disease Maternal Aunt Other Maternal Grandfather Maligna nt Neoplastic Disease Alzheimer's disease Maternal Grandmother Alzheimer's disease Maternal Uncle Alzheimer's disease Mother Heart attack Sister Hyperlipidemia Sister Other Sister Coronary Arteri osclerosis Relation Name Status Comments Brother Father (Age 69) Maternal Aunt Maternal Grandfather Maternal Grandmother Maternal Uncle Mother (Age 94) Sister Alive Social History Tobacco Use Types Packs/Day Years Used Date Smoking Tobacco: Never Smokeless Tobacco: Never Tobacco Cessation:Counseling Given: Not Answered Alcohol Use Standard Drinks/Week Comments Yes 3 (1 standard drink = 0.6 oz pur e alcohol) DRINKS DAILY PHQ-2 Answer Date Recorded Total Score 0 01/10/2023 Childcare Answer Date Recorded Childcare Unknown 12/13/2018 Employment Answer Date Recorded Employment Unknown 12/13/2018 Hunger Screening Answer Date Recorded Within the past 12 months we worried whether our food would run out before we got money to buy more. Never True 12/16/2023 Within the past 12 months th e food we bought just didn't last and we didn't have money to get more. Never True 12/16/2023 Purpose - Life Answer Date Recorded Purpose and direction in life Unknown Comments Unknown Sex and Gender Information Value Date Recorded Sex Assigned at Not on file Legal Sex Female 11:31 AM EDT Gender Identity Not on file Sexual Orientation Not on file Last Filed Vital Signs Vital Sign Reading Time Taken Comments Blood Pressure 116/70 12/16/2023 9:37 AM EDT Pulse 79 12/16/2023 9:37 AM EDT Temperature 36.1 C (97 F) 01/10/2023 8:55 AM EDT Respiratory Rate 16 01/03/2023 11:35 AM EDT Oxygen Saturation 90% 12/16/2023 9:37 AM EDT Inhaled Oxygen Concentration - - Weight 88.5 kg (195 lb 3.2 oz) 12/16/2023 9:37 A M EDT Height 154.9 cm (5' 1 ) 12/16/2023 9:37 AM EDT Body Mass Index 36.88 12/16/2023 9:37 AM EDT Plan of Treatment Health Maintenance Due Date Last Done Comments DTaP,Tdap and Td Vaccines (1 - Tdap) 09/02/1959 Depression Screening 01/11/2024 01/10/2023 Fall Risk Screening 01/11/2024 01/10/2023 Zoster (Shingles) Vaccine (2 of 2) 08/14/2024 06/19/2024 Tobacco Screening 12/15/2024 12/16/2023 COVID-19 Vaccine Discontinued 04/15/2022, 04/2022, 03/27/2021, Additional history exists Influenza Vaccine Discontinued 03/28/2024, , 04/12/2022, Additional history exists Medical Devices Not on file Insurance MEDICARE COMMERCIAL Member Subscriber Plan / Payer (Ef fective 2011-Present) Name:Maria Esther Bee Relation to Subscriber:Self Name:Cristal Maria Esther Kay Payer ID:Not on file Group ID:[id number] Type:Not on file Address: [address] [place] [address] MEDICARE COMMERCIAL Member Subscriber Plan / Payer (Ef fective 2011-Present) Name:Maria Esther Bee Relation to Subscriber:Self Name:Maria Esther Bee Payer ID:Not on file Group ID:[id number] Type:Not on file Address: [facility] [address] [place] [address] Advance Directives Documents on File Type Date Recorded Patient Export Agent Expl anation Advance Directive 06/14/2022 3:25 PM DNR 06/11/22 Care Teams Grocery Store Courtesy Clerk Relationship Specialty Start Date End Date Kaur Rosas, WOODWORKING CRAFTSMAN-CASSANDRA DEVELOPER PCP - General Nurse Practitioner 05/05/23
--- OUTSIDE RECORDS SUMMARY | 2025-02-04 07:51 | XMS_ITS | Encounter Summary ---
Author Organization [facility] [employer] tem Address [id number] [address] [place] [address] Care Team Providers Care Cement Block Maker Name Role Phone Kaur Rosas PROJECT ACCOUNTANT-[facility] Primary Care Provider Reason for Visit * Reason Comments Med Change Request Encounter Details Date Type Department Care Team (Late st Contact Info) Description 08/31/2022 Refill [facility] - Family Medicine [address] [place] [address] Destiney Paula, SALVADOR-MOTH EXTERMINATOR [address] [place] [address] Benign hypertension with CKD (chronic kidney disease) stage III ([facility]) Social History Tobacco Use Types Packs/Day Years [...] as of this encounter Visit Diagnoses Diagnosis Benign hypertension with CKD (chronic kidney disease) stage III (CMS-HCC) Benign hypertensive kidney disease with chronic kidney disease stage I through stage IV, or unspecified documented in this encounter Care Teams Cement Block Maker Relationship Specialty Start Date End Date Kaur Rosas, PROJECT ACCOUNTANT-TERMINAL SYSTEM OPERATOR PCP - General Nurse Practitioner 05/05/23 documented as of this encounter
--- OUTSIDE RECORDS SUMMARY | 2025-02-04 07:51 | XMS_ITS | Clinical Summary ---
Author Organization [facility] Address [address] [place] [address] Care Team Providers Care Cabinet Builder Name Role Phone Kaur Rosas MD Primary Care Provider [phone] Allergies No known active allergies Medications aspirin 81 mg EC tablet 1 tablet DAILY (route: oral) 2 Active donepezil (Aricept) 5 mg tablet Take 5 mg by mouth in the morning. 2 Active rosuvastatin (Crestor) 40 mg tablet Take 40 mg by mouth in the morning. 2 Active denosumab (Prolia) 60 mg/mL syringe Inject 60 mg under the skin every 6 months. Active pantoprazole (ProtoNix) 40 mg EC tabletIndicatio ns:Acute blood loss anemia Take 1 tablet (40 mg) by mouth before breakfast for 120 doses. Do not crush, chew, or split. 120 tablet 3 Active Additional Information Patient not taking.Reported on 09/22/2023 multivitamin capsule Take 1 capsule by mouth in the morning. Active methocarbamol (Robaxin) 500 mg tabletIndicatio ns:Hiatal hernia Take 1 tablet (500 mg) by mouth in the morning, at noon, and at bedtime for 18 doses. 18 tablet 3 Active amLODIPine (Norvasc) 5 mg tablet Take 5 mg by mouth in the morning. 3 Active Active Problems Problem Noted Date Diagnosed Date Hiatal hernia 05/17/2023 Diastolic dysfunction 02/17/2023 02/17/2023 Overview (02/17/2023): GRADE 1 Obesity, morbid 01/10/2023 02/17/2023 GI bleeding 12/18/2022 Dementia 12/16/2022 Benign hypertension with CKD (chronic kidney disease) stage III 06/09/2022 Diverticulosis of sigmoid colon 03/10/2022 Overflow incontinence of urine 03/10/2022 Age-related osteoporosis wit hout current pathological fracture 10/16/2018 History of aortic valve replacement 04/28/2018 S/P AVR (aortic valve replacement) 04/28/2018 02/17/2023 Essential hypertension 04/26/2018 Coronary artery disease invo lving [place] coronary artery of [place] heart 04/26/2018 Mixed hyperlipidemia 07/27/2016 Resolved Problems Problem Noted Date Diagnosed Date Resolved Date Gastrointestinal hemorrhage with melena 12/16/2022 12/23/2022 Hypomagnesemia 12/16/2022 12/23/2022 Acute blood loss as cause of postoperative anemia 09/19/2017 12/23/2022 Immunizations Immunization Administration Dates Next Due Covid ([employer]) Bivalent Estee ter =>12 YRS 04/15/2022 Influenza, High Dose Seasona l, Preservative Free 04/23/2019,04/12/2019,03/28/2018,05/04 Influenza, High-dose Seasona l, Quadrivalent, Preservative Free 04/12/2022,03/27/2021,04/09/2020 Influenza, seasonal, injectable 05/04/2015 Pfizer SARS-CoV-2 Vaccination 10/11/2021 Pneumococcal Conjugate PCV 13 07/22/2015 Pneumococcal Polysaccharide PPV23 01/14/2017 Unspecified Sars-Cov-2 Vaccination 10/11,03/27/2021,08/15/2020,08/14,07/24/2020,07/18/2020 Family History Medical History Relation Name Comments Heart attack Father Relation Name Status Comments Father Social History Tobacco Use Types Packs/Day Years Used Date Smoking Tobacco: Never Smokeless Tobacco: Never Alcohol Use Standard Drinks/Week Comments Not Currently 0 (1 standard drink = 0.6 oz pur e alcohol) Humiliation, Afraid, Rape, and Kick questionnair e Answer Date Recorded Within the last year, have y ou been afraid of your partner or ex-partner? No 08/29/2024 Within the last year, have y ou been humiliated or emotionally abused in other ways by your partner or ex-partner? No Within the last year, have y ou been kicked, hit, slapped, or otherwise physically hurt by your partner or ex-partner? No 08/29/2024 Within the last year, have y ou been raped or forced to have any kind of sexual activity by your partner or ex-partner? No 08/29/2024 AUDIT-C Answer Date Recorded Q1: How often do you have a drink containing alc ohol? Never 09/02/2023 Average Number of Drinks Not on file 024 Frequency of Binge Drinking Not on file 07/2023 Overall Financial Resource Strain (CARDIA) Answe r Date Recorded How hard is it for you to pa y for the very basics like food, housing, medical care, and heating? Not hard at all 09/02/2023 PHQ-2 Answer Date Recorded Patient Health Questionnaire-2 Score 0 08/29/2024 [facility] [place] [facility] Occupat ional Health - Occupational Stress Questionnaire Answer Date Recorded Do you feel stress - tense, restless, nervous, or anxious, or unable to sleep at night because your mind is troubled all the time - these days? Not at all 09/02/2023 Transportation Answer Date Recorded In the past 12 months, has l ack of transportation kept you from medical appointments or from getting medications? No 07/2023 In the past 12 months, has l ack of transportation kept you from meetings, work, or from getting things needed for daily living? No 09/02/2023 Housing Stability Vital Sign Answer Rodrick e Recorded Unable to Pay for Housing in the Last Year Not o n file 06/01/2023 Number of Places Lived in the Last Year Not on f ile 06/01/2023 In the last 12 months, was t here a time when you did not have a steady place to sleep or slept in a skilled nursing (including now)? No 06/01/2023 Hunger Vital Sign Answer Date Recorded Within the past 12 months, y ou worried that your food would run out before you got the money to buy more. Never true 06/01/20 23 Ran Out of Food in the Last Year Not on file 06/01/2023 Comments No Sex and Gender Information Value Date Recorded Sex Assigned at Female 12/17/2022 11:07 AM EDT Legal Sex Female 10:22 PM EDT Gender Identity Female 12/17/2022 11:07 AM EDT Sexual Orientation Heterosexual or Straight 12/02 11:07 AM EDT Last Filed Vital Signs Vital Sign Reading Time Taken Comments Blood Pressure 142/81 09/27/2024 10:12 AM EDT Pulse 85 09/27/2024 10:12 AM EDT Temperature 36.5 C (97.7 F) 09/22/2023 8:45 AM EDT Respiratory Rate 18 09/20/2024 12:50 PM EDT Oxygen Saturation 93% 09/20/2024 12:50 PM EDT Inhaled Oxygen Concentration - - Weight 89.4 kg (197 lb) 09/27/2024 10:12 AM EDT Height 152.4 cm (5') 09/27/2024 10:12 AM EDT Body Mass Index 38.47 09/27/2024 10:12 AM EDT Plan of Treatment Health Maintenance Due Date Last Done Comments Diabetes: Hemoglobin A1C 1940 Medicare Annual Wellness (AWV) 1940 Diabetes: Retinopathy Screening 1950 Diabetes: Urine Protein Screening 09/02/1959 Adult Tetanus 1962 COVID-19 Vaccine (2023- season) 2024 03/28/2024, 04/15/2022, 10/11/2021, Additional history exists Zoster Vaccines (2 of 2) 08/14/2024 06/19/2024 Influenza Vaccine (#1) 2025 , 03/29/2023, 04/12/2022, Additional history exists Depression Screening 08/29/2025 08/29/2024 Fall Risk Screening 08/29/2025 08/29/2024 Pneumococcal Vaccine: 50+ Years Completed 07/02/2024, 01/14/2017, 07/22/2015 HIB Vaccines Aged Out No longer eligi ble based on patient's age to complete this topic HPV Vaccines Aged Out No longer eligi ble based on patient's age to complete this topic IPV Vaccines Aged Out No longer eligi ble based on patient's age to complete this topic Meningococcal B Vaccine Aged Out No l onger eligible based on patient's age to complete this topic Meningococcal Vaccine Aged Out No christiano iqra eligible based on patient's age to complete this topic Rotavirus Vaccines Aged Out No longer eligible based on patient's age to complete this topic Medical Devices Implanted Type Area Jackerman Device Identifier Shelf Expiration Date Model / Serial / Lot Kit,Cement,Jose ne,Kyphon Lisseth-A - [id number] - [id number] Implanted:Qty : 1 on 09/20/2024 by Mario Ballard MD at [facility] Bone Cement Right: Spine Thoracic [employer] 08/31/2025 [id number] / [id number] / [id number] Confidence High Viscosity Spinal Cement Implanted:Qty : 1 on 09/22/2023 by Uriel Hudson MD at [facility] N/A: Spine Lumbar Med[employer] [id number] 03/03/2025 [id number] / / [id number] Description:Part of Kit Insurance MEDICARE GENERIC COMMERCIAL Advance Directives * Full Code (Latest Code Status on File) Date Activated Date Inactivated Comments 06/01/2023 9:22 AM 06/07/2023 4:30 PM * DNR CC-A Date Activated Date Inactivated Comments 12/16/2022 10:13 PM 12/23/2022 6:07 PM Question Answer Comments Select If Any Apply: No Intubation * Full Code Date Activated Date Inactivated Comments 12/16/2022 7:11 PM 12/16/2022 10:13 PM Care Teams Cabinet Builder Relationship Specialty Start Date End Date Kaur Rosas MD [address] [place] [id number] PCP - General 03/21/23
--- OUTSIDE RECORDS SUMMARY | 2025-02-04 07:51 | XMS_ITS | Encounter Summary ---
Author Organization [facility] tem Address [id number] [address] [place] [address] Care Team Providers Care Brake Holder Name Role Phone Tracie Rosasa Franco FRANCO-NATIONAL STORMWATER LEADER Primary Care Provider Encounter Details Date Type Department Care Team (Late st Contact Info) Description 12/27/2022 Orders Only [facility] Internal [facility] - Family Medicine [address] [place] [address] Manjula Bray CMA Gastrointestinal hemorrhage, unspecified gastrointestinal hemorrhage type; Benign hypertension with CKD (chronic kidney disease) stage III ([facility]); Diastolic dysfunction; Generalized edema; Dyspnea and respiratory abnormality Social History Tobacco Use Types Packs/Day Years Used Date Smoking Tobacco: Never Smokeless Tobacco: Never Alcohol Use Standard Drinks/Week Comments Yes 3 (1 standard drink = 0.6 oz pur e alcohol) DRINKS DAILY PHQ-2 Answer Date Recorded Total Score 0 12/27/2022 Childcare Answer Date Recorded Childcare Unknown 12/13/2018 [...] Procedure Name Priority Date/Time Associated Diagnosis Comments CBC WITH AUTO DIFFERENTIAL Routine 12/27/2022 Gastrointestinal hemorrhage, unspecified gastrointestinal hemorrhage type B-TYPE NATRIURETIC PEPTIDE Routine 12/27/2022 Benign hypertension with CKD (chronic kidney disease) stage III ([facility]) Diastolic dysfunction Generalized edema Dyspnea and respiratory abnormality BASIC METABOLIC PANEL Routine 12/27/2022 Benign hypertension with CKD (chronic kidney disease) stage III ([facility]) Diastolic dysfunction Generalized edema documented in this encounter Results * B-type natriuretic peptide (12/27/2022) Pathologist [facility] External Bnp 1,758 <=1,800 MANUALL Y TRANSCRIBED RESULTS Blood 12/27/2022 Destiney Paula [facility] LAB BLOOD ORDERABLES Final Result Performing Organization Address [facility] Co de Phone Number MANUALLY TRANSCRIBED RESULTS * (ABNORMAL) Basic Metabolic Panel (12/27/2022) [facility] External Anion Gap 15.6 MANUALLY TRANSCRIBED RESULTS External Blood Urea Nitrogen Bun 16 7 - 18 MANUALLY TRANSCRIBED RESULTS External Calcium Ca 8.8 8.5 - 10.1 MANUALLY TRANSCRIBED RESULTS External Chloride 101 98 - 107 MANUALLY TRANSCRIBED RESULTS External Co2 / Carbon Dioxide 25.5 21 - 32 MANUALLY TRANSCRIBED RESULTS External Creatinine 1.38(A) 0.55 - 1.02 MANUALLY TRANSCRIBED RESULTS External Gfr Amer 44 >=60 MANUALLY TRANSCRIBED RESULTS External Gfr Non Amer 37 >=60 MANUALLY TRANSCRIBED RESULTS External Glucose Fasting Or Random (Fbs) 109(A) 74 - 106 MANUALLY TRANSCRIBED RESULTS External Potassium K 4.1 3.5 - 5.1 MANUALLY TRANSCRIBED RESULTS External Sodium Na 138 136 - 145 MANUALLY TRANSCRIBED RESULTS Blood 12/27/2022 Destiney Paula EXHIBIT CARPENTER-[facility] LAB BLOOD ORDERABLES Final Result Performing Organization Address [facility] Co de Phone Number MANUALLY TRANSCRIBED RESULTS * (ABNORMAL) CBC auto differential (12/27/2022) [facility] External Wbc Count 8.6 4 - 11 MANUALLY TRANSCRIBED RESULTS External Rbc Count 2.95(A) 4.20 - 5.40 MANUALLY TRANSCRIBED RESULTS External Hemoglobin 8.5(A) 12 - 16 MANUALLY TRANSCRIBED RESULTS External Hematocrit Hct 27.4(A) 36 - 48 MANUALLY TRANSCRIBED RESULTS External Mcv 92.9 81 - 99 MANUALL Y TRANSCRIBED RESULTS External MCH 28.8 26.7 - 34 MANUALL Y TRANSCRIBED RESULTS External Mchc 31 29.9 - 35.2 MANUALLY TRANSCRIBED RESULTS External Rdw 17.3(A) 11 - 15 MANUALL Y TRANSCRIBED RESULTS External Platelet Count 310 150 - 450 MANUALLY TRANSCRIBED RESULTS External Mpv 9.9 9.5 - 13.5 MANUALLY TRANSCRIBED RESULTS External Seg Neutrophil 68.8 43 - 75 MANUALLY TRANSCRIBED RESULTS External Lymphocyte, Atypical 18.3(A) 20.5 - 60 MANUALLY TRANSCRIBED RESULTS External Absolute Lymphocyte 1.6 1.2 - 3.8 MANUALLY TRANSCRIBED RESULTS External Monocytes 8.2 1.7 - 12 MANUALLY TRANSCRIBED RESULTS External % Basophils 0.7 0.2 - 2 MANUALLY TRANSCRIBED RESULTS External Absolute Neutrophils 5.9 1.4 - 6.5 MANUALLY TRANSCRIBED RESULTS External Absolute Lymphocyte 1.6 1.2 - 3.8 MANUALLY TRANSCRIBED RESULTS External Absolute Monocytes 0.7 0.3 - 0.8 MANUALLY TRANSCRIBED RESULTS External Absolute Basophil 0.1 0 - 0.1 MANUALLY TRANSCRIBED RESULTS 12/27/2022 Destiney Paula EXHIBIT CARPENTER-COMMODITY SPECIALIST LAB BLOOD ORDERABLES Final Result MANUALLY TRANSCRIBED RESULTS documented in this encounter Visit Diagnoses Diagnosis Gastrointestinal hemorrhage, unspecified gastrointestinal hemorrhage type Benign hypertension with CKD (chronic kidney disease) stage III ([facility]) Benign hypertensive kidney disease with chronic kidney disease stage I through stage IV, or unspecified Diastolic dysfunction Unspecified heart disease Generalized edema Edema Dyspnea and respiratory abnormality Other dyspnea and respiratory abnormality documented in this encounter Additional Health Concerns Assessment Noted Time PHQ-9 Depression Total Score: 0 12/28/19 10:55 AM EDT documented as of this encounter Care Teams Brake Holder Relationship Specialty Start Date End Date Kaur Rosas, EXHIBIT CARPENTER-NATIONAL STORMWATER LEADER PCP - General Nurse Practitioner 05/05/23 documented as of this encounter
--- OUTSIDE RECORDS SUMMARY | 2025-02-04 07:51 | XMS_ITS | Encounter Summary ---
Author Organization [facility] Address [address] [place] [address] Care Team Providers Care Floral Decorator Name Role Phone Kaur Rosas ACADEMIC PROGRAM SPECIALIST Unavailable [phone] Thony Escalante MD Primary Care Provider [phone] Thony Escalante MD Unavailable Encounter Details Date Type Department Care Team (Late st Contact Info) Description 09/10/2024 Orders Only [facility] [address] [place] [address] Kaur Rosas, ACADEMIC PROGRAM SPECIALIST [address] [place] [address] Social History Tobacco Use Types Packs/Day Years [...] often do you attend chur ch or alevism services? More than 4 times per year 10/26/2023 Do you belong to any clubs o r organizations such as rastafari groups, unions, fraternal or athletic groups, or [...] Recorded Patient Health Questionnaire-2 Score 0 09/20/2023 [facility] Occupat ional [facility] - Occupational Stress Questionnaire Answer Date Recorded [...] the money to buy more. Never true 04/24/20 24 Within the past 12 months, t [...] place to sleep or slept in a custodial (including now)? No 10/26/2023 Comments Unknown Sex [...] Office Visit [facility] [address] [place] [address] Kaur Rosas NP [address] [place] [address] documented as of this encounter Visit Diagnoses Not on filedocumented in this encounter Additional Health Concerns Assessment Noted Time PHQ-9 Depression Total Score: 0 10/26/19 10:14 AM EDT documented as of this encounter Care Teams Floral Decorator Relationship Specialty Start Date End Date Thony Escalante MD [address] [place] [address] PCP - General Family Medicine 09/01/23 Kaur Rosas NP [address] [place] [phone] Nurse Practitioner Family Medicine 05/09/23 Thony Escalante MD [address] [place] [address] Referring Physician Family Medicine 09/01/23 documented as of this encounter
--- OUTSIDE RECORDS SUMMARY | 2025-02-04 07:51 | XMS_ITS | Encounter Summary ---
[facility] Address [facility] [id number] [address] [place] [address] Care Team Providers Care Optical Scientist Name Role Phone GustavoKaur rojo Franco INVERTEBRATE PALEONTOLOGIST-QUICK TECHNICIAN Primary Care Provider Encounter Details Date Type Department Care Team (Late st Contact Info) Description 12/28/2022 Orders Only [facility] Internal Medicine - Family Medicine [address] [place] [address] Destiney Paula, INVERTEBRATE PALEONTOLOGIST-CHEMICAL DEPENDENCY COUNSELOR [address] [place] [address] Social History Tobacco Use Types Packs/Day Years [...] Procedure Name Priority Date/Time Associated Diagnosis Comments XR CHEST 2 VWS Routine 12/28/2022 documented in this encounter Results * X-ray chest 2 views (12/28/2022) Anatomical Region Laterality Modality Body, Chest N/A Computed Radiogr aphy Destiney Paula INVERTEBRATE PALEONTOLOGIST-CHEMICAL DEPENDENCY COUNSELOR IMG DIAGNOSTIC IMAGING [facility] Final Result documented in this encounter Visit Diagnoses Not on filedocumented in this encounter Additional Health Concerns Assessment Noted Time PHQ-9 Depression Total Score: 0 12/28/19 10:55 AM EDT documented as of this encounter Care Teams Optical Scientist Relationship Specialty Start Date End Date Kaur Rosas APRN-QUICK TECHNICIAN PCP - General Nurse Practitioner 05/05/23 documented as of this encounter
--- OUTSIDE RECORDS SUMMARY | 2025-02-04 07:51 | XMS_ITS | Encounter Summary ---
Author Organization [employer] tem Address [facility] [id number] [address] [place] [address] Care Team Providers Care Engineering Clerk Name Role Phone Kaur Rosas FABRIC STRETCHER-MEDIA SERVICES DIRECTOR Primary Care Provider Encounter Details Date Type Department Care Team (Late st Contact Info) Description 09/19/2023 Orders Only [facility] Cardiology [address] [place] [id number] External, Scanning Provider Social History Tobacco Use [...] got money to buy more. Never True 09/19/2023 Within the past 12 months th e food we bought just didn't last and we didn't have money to get more. Never True 09/19/2023 Purpose - Life Answer Date Recorded Purpose [...] Procedure Name Priority Date/Time Associated Diagnosis Comments MULTIPLE LABS Routine 09/19/2023 3:55 PM EDT ECG 12-LEAD Routine 09/19/2023 3:[address] ABDOMEN AND PELVIS W CONT Routine 09/19/2023 3:53 PM EDT documented in this encounter Results * Multiple labs (09/19/2023 3:55 PM EDT) us Scanning Provider External [facility] Final Result Performing Organization Address City/[facility]/ZIP Co de Phone Number MANUALLY TRANSCRIBED RESULTS * ECG 12 lead (09/19/2023 3:54 PM EDT) us Scanning Provider External ECG ORDERABLES Final Result Performing Organization Address [facility] Co de Phone Number MANUALLY TRANSCRIBED RESULTS * CT abdomen and pelvis with contrast (09/19/2023 3:53 PM EDT) Anatomical Region Laterality Modality Body, Abdomen, Body Covera N/A Compu kirt Tomography us Scanning Provider External IMG CT ORDERABLES Fin al Result documented in this encounter Visit Diagnoses Not on filedocumented in this encounter Additional Health Concerns Assessment Noted Time PHQ-9 Depression Total Score: 0 01/11/20 8:55 AM EDT documented as of this encounter Care Teams Engineering Clerk Relationship Specialty Start Date End Date Kaur Rosas, FABRIC STRETCHER-MEDIA SERVICES DIRECTOR PCP - General Nurse Practitioner 05/05/23 documented as of this encounter
--- OUTSIDE RECORDS SUMMARY | 2025-02-04 07:51 | XMS_ITS | Encounter Summary ---
Author Organization [facility] tem Address [facility] [id number] [address] [place] [address] Care Team Providers Care Systems Consultant Name Role Phone GustavoKaur rojo Franco FRANCO-HARDENING MACHINE OPERATOR Primary Care Provider Encounter Details Date Type Department Care Team (Late st Contact Info) Description 09/05/2023 Orders Only [facility] Internal Medicine - Family Medicine [address] [place] [address] External, Scanning Provider Social History Tobacco Use [...] got money to buy more. Never True 05/05/2023 Within the past 12 months th e food we bought just didn't last and we didn't have money to get more. Never True 05/05/2023 Purpose - Life Answer Date Recorded Purpose [...] Name Priority Date/Time Associated Diagnosis Comments CT ABDOMEN AND PELVIS W CONT Routine 2023 2:28 PM EST documented in this encounter Results * CT abdomen and pelvis with contrast (2023 2:28 PM EST) Anatomical Region Laterality Modality Body, Abdomen, Body Covera N/A Compu kirt Tomography us Scanning Provider External IMG CT ORDERABLES Fin al Result documented in this encounter Visit Diagnoses Not on filedocumented in this encounter Additional Health Concerns Assessment Noted Time PHQ-9 Depression Total Score: 0 01/11/20 8:55 AM EDT documented as of this encounter Care Teams Systems Consultant Relationship Specialty Start Date End Date Kaur Rosas, FIBER OPTIC TECHNICIAN-HARDENING MACHINE OPERATOR PCP - General Nurse Practitioner 05/05/23 documented as of this encounter
[2025-02-04 08:27] LABS: Hematocrit 42.6 % (36.0-48.0); Hemoglobin 14.4 g/dL (12.0-16.0); Immature Granulocytes Abs Auto 0.02 10^3/uL (0.00-0.03); Immature Granulocytes Pct Auto 0.2 % (0.0-0.5); Lymphocytes Absolute Auto 2.6 10^3/uL (1.2-3.8); Mean Corpuscular HGB Conc 33.8 g/dL (29.9-35.2); Mean Corpuscular Hemoglobin 31.1 pg (26.7-34.0); Mean Corpuscular Volume 92.0 fL (81.0-99.0); Platelet Count 225 10^3/uL (150-450); Red Blood Count 4.63 10^6/uL (4.20-5.40); White Blood Count 10.6 10^3/uL (4.0-11.0)
[2025-02-04 09:36] LABS: Iron 63.0 ug/dL (50.0-170.0); Percent Iron Saturation 21.8 %; Total Iron Binding Capacity 289.0 ug/dL (250.0-450.0)
[2025-02-04 09:47] LABS: Alanine Aminotransferase 15 U/L (14-59); Albumin Globulin Ratio 0.8; Albumin Level 3.6 g/dL (3.4-5.0); Alkaline Phosphatase 72 U/L (46-116); Anion Gap 14.0; Aspartate Amino Transferase 19 U/L (15-37); Blood Urea Nitrogen 20.0 mg/dL (7.0-18.0); Calcium 9.7 mg/dL (8.5-10.1); Carbon Dioxide 25.1 mmol/L (21.0-32.0); Chloride 102 mmol/L (98-107); Cholesterol 168 mg/dL (<=200); Estimated GFR (African America 52 (>=60 mL/min/1.73m^2); Estimated GFR (Non-African Ame 43 (>=60 mL/min/1.73m^2); Globulin 4.7 g/dL; Glucose 113 mg/dL (74-106); HDL Cholesterol 55 mg/dL (40-60); Potassium 4.1 mmol/L (3.5-5.1); Sodium 137 mmol/L (136-145); Thyroid Stimulating Hormone 3.442 uIU/mL (0.358-3.740); Total Protein 8.3 g/dL (6.4-8.2); Triglycerides 113 mg/dL (<=150); VLDL CHOLESTEROL 22.6 mg/dL
[2025-02-04 10:01] LABS: Glucose Urine UA NEGATIVE (NEGATIVE)
[2025-02-04 10:22] LABS: Cast Seen? NONE SEEN #/LPF (NONE SEEN); Crystals Seen? None Seen #/HPF (None Seen)
[2025-02-04 10:23] LABS: Ferritin 90.0 ng/mL (8.0-252.0)
[2025-02-04 12:47] LABS: Microalbum Creatinine Ratio Ur 46.3 mg/g (0.0-29.9)
[2025-02-05 04:07] LABS: Vitamin B12 576 pg/mL (232-1245)
[2025-02-05 05:08] LABS: Transferrin 247 mg/dL (149-313)
== END 2025-02-04 07:45 | disposition home or self-care (01) ==
LOC: LAB 07:49
PROVIDERS: PCP Nurse Practitioner; Visit Provider Nurse Practitioner
DX: F03.90 Unspecified dementia, unspecified severity, without behavioral disturbance, psychotic disturbance, mood disturbance, and anxiety (principal); K21.9 Gastro-esophageal reflux disease without esophagitis; E11.22 Type 2 diabetes mellitus with diabetic chronic kidney disease; N18.31 Chronic kidney disease, stage 3a; N18.32 Chronic kidney disease, stage 3b; I12.9 Hypertensive chronic kidney disease with stage 1 through stage 4 chronic kidney disease, or unspecified chronic kidney disease
CPT/HCPCS: 36415; 80053; 80061; 81001; 82043; 82306; 82570; 82607; 82728; 83540; 83550; 84443; 84466; 85025